=== PATIENT | female | born 1990 | race Caucasian/White ===

== ENCOUNTER → 2016-05-18 | Outpatient (CLI) | payer BC, OTHER ==
--- NOTE | 2016-05-19 07:49 | US ---
EXAMINATION TYPE: US transvaginal DATE OF EXAM: 05/18/2016 4:27 PM COMPARISON: 10/19/2015 CLINICAL HISTORY: R10.2 Pelvic and perineal pain. TECHNIQUE: Transvaginal (TV) Date of LMP: 04/25/15 EXAM MEASUREMENTS: Uterus: 8.7 x 4.2 x 5.4cm Endometrial Stripe: 1.5 cm Right Ovary: Extensive peristalsing bowel seen in right adnexa, unable to visualize ovary. Left Ovary: Extensive peristalsing bowel seen in right adnexa, unable to visualize ovary. 1. Uterus: Anteverted 2. Endometrium: thickened 3. Right Ovary: Extensive peristalsing bowel seen in right adnexa, unable to visualize ovary. 4. Left Ovary: Extensive peristalsing bowel seen in right adnexa, unable to visualize ovary. 5. Bilateral Adnexa: see above 6. Posterior cul-de-sac: small amount of ff IMPRESSION: Limited visualization of the ovaries and adnexal structures. Small amount of free fluid i dentified.
== END | disposition home or self-care (01) ==
LOC: RADUSMAIN 15:52
PROVIDERS: ATTEND Nurse Practitioner Family
DX: R10.2 Pelvic and perineal pain (principal)
CPT/HCPCS: 76830

== ENCOUNTER → 2017-01-01 | Outpatient (CLI) | payer BC, OTHER | END | disposition home or self-care (01) | LOC: LABWHC1 12:11 | PROVIDERS: ATTEND Obstetrics & Gynecology | DX: N97.0 Female infertility associated with anovulation (principal) | CPT/HCPCS: 36415; 84144 ==

== ENCOUNTER → 2017-01-22 | Outpatient (CLI) | payer BC, OTHER | END | disposition home or self-care (01) | LOC: LABWHC1 12:11 | PROVIDERS: ATTEND Obstetrics & Gynecology | DX: Z34.90 Encounter for supervision of normal pregnancy, unspecified, unspecified trimester (principal) | CPT/HCPCS: 36415; 84702 ==

== ENCOUNTER → 2017-03-15 | Outpatient (CLI) | payer BC, OTHER | END | disposition home or self-care (01) | LOC: LABWHC1 12:15 | PROVIDERS: ATTEND Obstetrics & Gynecology | DX: O02.1 Missed abortion (principal) | CPT/HCPCS: 36415; 84702 ==

== ENCOUNTER → 2017-05-14 | Outpatient (CLI) | payer BC, OTHER ==
[2017-05-14 12:57] LABS: T4, Free (Free Thyroxine) 1.07 ng/dL (0.78-2.19)
[2017-05-14 18:56] LABS: Progesterone 0.5 ng/mL
[2017-05-14 20:48] LABS: Cardiolipin Ab IgG Interp NEGATIVE (NEGATIVE); Cardiolipin Ab IgM Interp NEGATIVE (NEGATIVE); Cardiolipin IgA Antibody <0.5 U/mL; Cardiolipin IgM Antibody 1.8 U/mL
[2017-05-14 21:15] LABS: Hemoglobin A1C 4.7 % (4.0-6.0)
== END | disposition home or self-care (01) ==
LOC: LABWHC1 12:09
PROVIDERS: ATTEND Obstetrics & Gynecology
DX: E03.9 Hypothyroidism, unspecified (principal); N96 Recurrent pregnancy loss
CPT/HCPCS: 36415; 81241; 83036; 84144; 84439; 84443; 84481; 86038; 86147

== ENCOUNTER → 2017-06-07 | Outpatient (CLI) | payer BC, OTHER ==
[2017-06-08 14:23] LABS: APTT 33 Sec(s) (<43); Dilute Russell Viper Venom 41 Sec(s) (<44)
== END | disposition home or self-care (01) ==
LOC: LABWHC1 12:11
PROVIDERS: ATTEND Obstetrics & Gynecology
DX: N96 Recurrent pregnancy loss (principal)
CPT/HCPCS: 36415; 85613; 85730; 86146

== ENCOUNTER → 2017-06-18 | Outpatient (CLI) | payer BC, OTHER | LOC: LABWHC1 12:10 | PROVIDERS: ATTEND Obstetrics & Gynecology | DX: N97.0 Female infertility associated with anovulation (principal) | CPT/HCPCS: 36415; 84144 ==

== ENCOUNTER → 2017-06-19 | Outpatient (CLI) | payer BC, OTHER ==
--- NOTE | 2017-06-19 13:11 | US ---
EXAMINATION TYPE: US venous doppler duplex UE RT DATE OF EXAM: 06/19/2017 COMPARISON: NONE CLINICAL HISTORY: RUE I82.601 Acute embolism/thrombosis. Right arm swelling SIDE PERFORMED: Right Right Arm: Negative for DVT Grayscale, color doppler, spectral doppler imaging performed of the deep veins of the right upper ext remity. There is normal flow, compressibility and vascular waveforms. IMPRESSION: No sonographic evidence of deep venous thrombosis within the right upper extremity.
== END | disposition home or self-care (01) ==
LOC: RADUSWWP 12:18
PROVIDERS: ATTEND Family Medicine
DX: I82.601 Acute embolism and thrombosis of unspecified veins of right upper extremity (principal)

== ENCOUNTER → 2017-12-24 | Outpatient (CLI) | payer BC, OTHER | END | disposition home or self-care (01) | LOC: LABWHC1 12:08 | PROVIDERS: ATTEND Obstetrics & Gynecology | DX: N97.0 Female infertility associated with anovulation (principal) | CPT/HCPCS: 36415; 84144; 84702 ==

== ENCOUNTER → 2018-01-14 | Outpatient (CLI) | payer BC, OTHER ==
[2018-01-14 18:47] LABS: T4, Free (Free Thyroxine) 1.1 ng/dL (0.80-1.80)
== END | disposition home or self-care (01) ==
LOC: LABWHC1 12:18
PROVIDERS: ATTEND Family Medicine
DX: E03.9 Hypothyroidism, unspecified (principal)
CPT/HCPCS: 36415; 84439; 84443; 84481

== ENCOUNTER → 2018-01-24 | Outpatient (CLI) | payer BC, OTHER | END | disposition home or self-care (01) | LOC: LABWHC1 12:06 | PROVIDERS: ATTEND Obstetrics & Gynecology | DX: N97.0 Female infertility associated with anovulation (principal) | CPT/HCPCS: 36415; 84144; 84702 ==

== ENCOUNTER → 2018-02-22 | Outpatient (CLI) | payer BC, OTHER | END | disposition home or self-care (01) | LOC: LAB 12:15 | PROVIDERS: ATTEND Obstetrics & Gynecology | DX: N97.0 Female infertility associated with anovulation (principal) | CPT/HCPCS: 84144 ==

== ENCOUNTER → 2018-03-27 | Outpatient (CLI) | payer BC, OTHER ==
[2018-03-27 18:51] LABS: Progesterone 16.8 ng/mL
[2018-03-27 18:56] LABS: Vitamin D 25 Hydroxy 41.2 ng/mL (30.0-100.0)
== END | disposition home or self-care (01) ==
LOC: LABWHC1 12:21
PROVIDERS: ATTEND Obstetrics & Gynecology
DX: Z01.812 Encounter for preprocedural laboratory examination (principal); N97.0 Female infertility associated with anovulation
CPT/HCPCS: 36415; 82306; 82397; 83036; 84144; 84146; 84443; 86762; 86787; 86850; 86900; 86901

== ENCOUNTER → 2018-05-21 | Outpatient (CLI) | payer BC, OTHER ==
--- NOTE | 2018-05-21 12:58 | US ---
EXAMINATION TYPE: Transabdominal DATE OF EXAM: 05/21/2018 10:52 AM COMPARISON: NONE CLINICAL HISTORY: O09.299 Supervision of with other poor r. Poor obstetric history. G 5 P 1 . EXAM PERFORMED: Transvaginal (TV) and Transabdominal (TA) EXAM MEASUREMENTS: GESTATIONAL AGE / DATING Physician Established: Not yet established. (Dates by LMP: 04/01/2018 (7 weeks/1 days) EDC: 01/06/2019 Dates by First Scan: This is first scan. Dates by Current Scan for: (6 weeks/5 days) EDC: 01/09/2019 MATERNAL ANATOMY Uterus: 12.1 x 8.5 x 5.4 cm Right Ovary: 4.0 x 1.8 x 1.5 cm Left Ovary: 3.1 x 2.1 x 2.4 cm Post CDS / Adnexa: Small amount of free fluid seen in CDS. Presence of free fluid: Yes CDS Presence of corpus luteal cyst: Possible corpus luteal: Anechoic area seen left ovary measurin.5 x 1.6 x 1.6 cm Presence of subchorionic bleed: Hypoechoic area seen measurin.1 x 1.1 x 0.8 cm GESTATION / SURVEY CRL: 0.83 (6 weeks/5 days) Yolk Sac (normal less than 6mm): 2.4 Heart Rate: 105 bpm Rhythm: Normal IUP: Viable IUP Date of LMP: 04/01/2018 Single viable IUP measuring 6 weeks/5 days, EDC: 01/09/2019; Heart rate 105 bpm; Presence of subchori onic bleed: Hypoechoic area seen measurin.1 x 1.1 x 0.8 cm inferior to the gestational sac. IMPRESSION: 1. Single intrauterine gestation estimated at 6 weeks 5 days gestation based on crown-rump length. 2. Cardiac activity measures 105 bpm. 3. Subchorionic hemorrhage adjacent to the gestational sac.
== END ==
LOC: RADUSWWP 10:06
PROVIDERS: ATTEND Obstetrics & Gynecology
DX: O20.8 Other hemorrhage in early pregnancy (principal); Z3A.01 Less than 8 weeks gestation of pregnancy
CPT/HCPCS: 76801; 76817

== ENCOUNTER → 2018-05-22 | Outpatient (CLI) | payer BC, OTHER ==
[2018-05-22 12:24] LABS: HGB 13.3 gm/dL (11.4-16.0); MCH 28.8 pg (25.0-35.0); MCHC 33.2 g/dL (31.0-37.0); MCV 86.7 fL (80.0-100.0); Platelet Count 351 k/uL (150-450); RBC 4.61 m/uL (3.80-5.40); RDW 12.9 % (11.5-15.5); WBC 10.3 k/uL (3.8-10.6)
== END | disposition home or self-care (01) ==
LOC: LABWHC1 12:06
PROVIDERS: ATTEND Obstetrics & Gynecology
DX: Z34.81 Encounter for supervision of other normal pregnancy, first trimester (principal)
CPT/HCPCS: 36415; 82565; 82947; 85027; 86762; 86780; 86850; 86900; 86901; 87340

== ENCOUNTER → 2018-08-21 | Outpatient (CLI) | payer BC, OTHER ==
[2018-08-21 18:18] LABS: T4, Free (Free Thyroxine) 1.2 ng/dL (0.80-1.80)
== END | disposition home or self-care (01) ==
LOC: LABWHC1 14:41
PROVIDERS: ATTEND Obstetrics & Gynecology
DX: E03.8 Other specified hypothyroidism (principal)
CPT/HCPCS: 36415; 84439; 84443; 84479

== ENCOUNTER → 2018-10-05 | Outpatient (CLI) | payer BC, OTHER ==
[2018-10-05 10:36] LABS: HCT 34.3 % (34.0-46.0); HGB 11.7 gm/dL (11.4-16.0); MCH 29.2 pg (25.0-35.0); MCHC 34.2 g/dL (31.0-37.0); MCV 85.5 fL (80.0-100.0); Mean Platelet Volume 6.5; Platelet Count 264 k/uL (150-450); RBC 4.01 m/uL (3.80-5.40); RDW 14.4 % (11.5-15.5); WBC 10.4 k/uL (3.8-10.6)
== END | disposition home or self-care (01) ==
LOC: LABWHC1 08:44
PROVIDERS: ATTEND Obstetrics & Gynecology
DX: E03.9 Hypothyroidism, unspecified (principal)
CPT/HCPCS: 36415; 82950; 84439; 84443; 84479; 85027

== ENCOUNTER → 2018-10-15 | Outpatient (CLI) | payer BC, OTHER ==
[2018-10-15 11:23] LABS: Glucose 3 Hour, Gest 134 mg/dL
== END | disposition home or self-care (01) ==
LOC: LABWHC1 07:01
PROVIDERS: ATTEND Obstetrics & Gynecology
DX: O99.810 Abnormal glucose complicating pregnancy (principal); Z3A.00 Weeks of gestation of pregnancy not specified
CPT/HCPCS: 36415; 82951; 82952

== ENCOUNTER 2018-11-29 11:46 | Outpatient (CLI) | payer BC, OTHER ==
[2018-11-29 12:17] VITALS: BP 122/76; PULSE 86; RESP 16; TEMP 97
--- NOTE | 2018-11-29 13:08 | P.MSEPDOC ---
Presenting Problems - Arrival Data Date of Arrival on Unit: 11/29/18 Time of Arrival on Unit: 11:46 Mode of Transport: Ambulatory - Complaint OB-Reason for Admission/Chief Complaint: NST Comment: Weekly NST; arrived with paper script; pt to be d/c after reactive NST obtained. Medical History - Information : 5 Para: 1 Term: 1 : 0 Abortions: Spontaneous or Elective: 3 Number of Living Children: 1 - Gestational Age Gestational Age by ADOLFO (wks/days): 34 Weeks and 4 Days Review of Systems - Review of Systems Constitutional: No problems Breast: No problems ENT: No problems Cardiovascular: No problems Respiratory: No problems Gastrointestinal: No problems Genitourinary: No problems Musculoskeletal: No problems Neurological: No problems Skin: No problems Vital Signs - Temperature Temperature: 97 F Temperature Source: Temporal Artery Scan - Pulse Right Sitting Brachial Pulse Rate: 86 Pulse Assessment Method: Automatic Cuff - Respirations Respiratory Rate: 16 Oxygen Delivery Method: Room Air O2 Sat by Pulse Oximetry: 98 - Blood Pressure Right Arm Sitting Blood Pressure: 122/76 Blood Pressure Mean: 91 Blood Pressure Source: Automatic Cuff Medical Screen Scoring (Pre) - Cervical Exam Dilation: Exam Deferred Effacement: Exam Deferred Membranes: Intact - Uterine Contractions Frequency: N/A Duration: N/A Intensity: N/A - Maternal Vital Signs Maternal Temperature: N/A Maternal Blood Pressure: N/A Signs of Preeclampsia: N/A Maternal Respirations: N/A - Maternal Trauma Maternal Trauma: N/A - Assessment - Baby A Baseline FHR: 130 Heart Rate - NICHD Category: Category I (Normal) = 0 NST: Reactive Position: N/A Station: N/A - Total Score - Baby A Total Score - Baby A: 0 - Total Score - Baby B Total Score - Baby B: 0 - Total Score - Baby C Total Score - Baby C: 0 - Level of Risk - Baby A Level of Risk - Baby A: Low (0-5) - Level of Risk - Baby B Level of Risk - Baby B: Low (0-5) - Level of Risk - Baby C Level of Risk - Baby C: Low (0-5) Physician Notification (Pre) - Physician Notified Physician Notified Date: 11/29/18 Physician Notified Time: 12:15 - Notification Comment Comment: Paper order states pt may be d/c after reactive NST obtained. Pt has appt Wed 12/04 c\Dr. Yañez and NST at [facility]. Disposition - Disposition OB Disposition: Discharge to home, Written follow up instructions reviewed Discharge Date: 11/29/18 Discharge Time: 12:15 I agree with the RN Medical Screening Exam: Yes Risk & Benefit of care provided described in d/c instruction: Yes Diagnosis: GESTATIONAL DIABETES IN THE PUERPERIUM, DIET CONTROLLED
== END 2018-11-29 12:15 | disposition home or self-care (01) ==
LOC: FBPOP 11:46
PROVIDERS: ATTEND Obstetrics & Gynecology
DX: O24.430 Gestational diabetes mellitus in the puerperium, diet controlled (principal); Z3A.34 34 weeks gestation of pregnancy
CPT/HCPCS: 59025

== ENCOUNTER 2018-12-19 12:15 | Outpatient (CLI) | payer BC, OTHER | END 2018-12-19 12:59 | disposition home or self-care (01) | LOC: FBPOP 12:15 | PROVIDERS: ATTEND Obstetrics & Gynecology | DX: O24.419 Gestational diabetes mellitus in pregnancy, unspecified control (principal) | CPT/HCPCS: 59025 ==

== ENCOUNTER 2018-12-28 09:07 | Outpatient (CLI) | payer BC, OTHER | END 2018-12-28 10:00 | disposition home or self-care (01) | LOC: FBPOP 09:07 | PROVIDERS: ATTEND Obstetrics & Gynecology | DX: O24.419 Gestational diabetes mellitus in pregnancy, unspecified control (principal) | CPT/HCPCS: 59025 ==

== ENCOUNTER 2018-12-31 05:40 | Inpatient (IN) | payer BC, OTHER ==
[2018-12-30 08:33] VITALS: BMI 34.4
--- NOTE | 2018-12-30 13:17 | P.HPOB ---
History of Present Illness H&P Date: 12/30/18 Chief Complaint: Repeat section, gestational diabetes This patient is a pleasant 28 year old EDC 01/06/2019 estimated gestational age 39 and 1/7 weeks who is presenting for repeat section. has been complicated by insulin dependent gestational diabetes (followed by [facility]), marginal cord insertion, hypothyroidism, and Factor V (heterozygous). She has been on 81mg ASA but [facility] did not recommend Lovenox until . Previous C/S and desires repeat Review of Systems Genitourinary: Reports Menstruation: Reports amenorrhea Past Medical History Past Medical History: Thyroid Disorder Additional Past Medical History / Comment(s): Gestational diabetes, Factor V Leiden (heterozygous), hypothyroidism History of Any Multi-Drug Resistant Organisms: None Reported Past Surgical History: Section Past Anesthesia/Blood Transfusion Reactions: No Reported Reaction Past Psychological History: No Psychological Hx Reported Smoking Status: Never smoker Past Alcohol Use History: None Reported Past Drug Use History: None Reported - Past Family History Mother Family Medical History: No Reported History Medications and Allergies Home Medications Medication Instructions Recorded Confirmed Type Pnv,Calcium 72/Iron/Folic Acid 1 tab PO HS 09/29/14 12/30/18 History [ Plus Tablet] Aspirin [Adult Low Dose Aspirin EC] 81 mg PO DAILY 11/29/18 12/30/18 History Folic Acid 1 mg PO DAILY 11/29/18 12/30/18 History Insulin Aspart [NovoLOG] 22 units SQ HS 11/29/18 12/30/18 History Levothyroxine Sodium 125 mcg PO DAILY 11/29/18 12/30/18 History metFORMIN HCL 500 mg PO HS 11/29/18 12/30/18 History Allergies Allergy/AdvReac Type Severity Reaction Status Date / Time amoxicillin Allergy Rash/Hives Verified 12/30/18 08:25 Penicillins Allergy Rash/Hives Verified 12/30/18 08:25 Exam Intake and Output 12/29/18 12/30/18 12/30/18 22:59 06:59 14:59 Other: Weight 102.965 kg - OBG Physical Exam Abdomen: bowel sounds normal, no diffuse tenderness, no bruit present, no guarding noted, no hepatomegaly, no splenomegaly, no mass Vulva: both: normal Vagina: normal moisture, no discharge Cervix: no lesion (Closed), no discharge Uterus: enlarged (Fundal height 38 cm) Results Labs: A positive, Rubella Immune, RPR-HepB negative, Abnormal 3hr GTT, Ultrasounds show normal growth, marginal cord insertion. Assessment and Plan Assessment: This is a pleasant 28 yr old female presenting for repeat C/S secondary to previous. Gestational diabetes and Leiden V. Plan is repeat low transverse ce sarean section. Skye and I have discusse this surgery and risks: infection, bleeding, possible injury to bowel/bladder/vessels and/or other organs. She understands that she is at increased risk of DVT/PE. All of the patients questions have been answered and a written consent obtained. (1) 39 weeks gestation of Status: Acute Code(s): Z3A.39 - 39 WEEKS GESTATION OF SNOMED Code(s): 11209259 (2) Gestational diabetes Status: Acute Code(s): O24.419 - GESTATIONAL DIABETES MELLITUS IN , UNSP CONTROL SNOMED Code(s): 26027635 (3) Previous delivery affecting Status: Acute Code(s): O34.219 - MATERNAL CARE FOR UNSP TYPE SCAR FROM PREVIOUS DEL SNOMED Code(s): 724048038 (4) Factor 5 Leiden mutation, heterozygous Status: Acute Code(s): D68.51 - ACTIVATED PROTEIN C RESISTANCE SNOMED Code(s): 462712628
[2018-12-31] MEDS ORDERED: LACTATED RINGERS 1,000 ML IV SCH (05:57)
[2018-12-31] MEDS ORDERED: LACTATED RINGERS 1,000 ML IV ONE (05:57)
[2018-12-31] MEDS ORDERED: CITRIC ACID-SODIUM CITRATE 15 ML CUP PO ONE (05:57)
[2018-12-31 06:33] LABS: Basophils # (A) 0.1 k/uL (0-0.2); Basophils % (A) 1 %; Eosinophils # (A) 0.2 k/uL (0-0.7); Eosinophils % (A) 2 %; HCT 37.3 % (34.0-46.0); HGB 12.6 gm/dL (11.4-16.0); Lymphocytes # (A) 2.1 k/uL (1.0-4.8); Lymphocytes % (A) 20 %; MCH 28.3 pg (25.0-35.0); MCHC 33.7 g/dL (31.0-37.0); MCV 84.1 fL (80.0-100.0); Monocytes # (A) 0.4 k/uL (0-1.0); Monocytes % (A) 4 %; Neutrophils # (A) 7.7 k/uL (1.3-7.7); Neutrophils % (A) 72 %; Platelet Count 253 k/uL (150-450); RBC 4.44 m/uL (3.80-5.40); RDW 14.6 % (11.5-15.5); WBC 10.6 k/uL (3.8-10.6)
[2018-12-31 06:48] LABS: INR 0.9 (<1.2); Prothrombin Time 9.4 sec (9.0-12.0)
[2018-12-31] MEDS ORDERED: ONDANSETRON 4 MG/2 ML VIAL ONE (07:46)
[2018-12-31] MEDS ORDERED: NALBUPHINE 10 MG/ML (1 ML AMP) ONE (07:46)
[2018-12-31] MEDS ORDERED: KETOROLAC 30 MG/ML 1 ML VIAL ONE (07:46)
[2018-12-31] MEDS ORDERED: MORPHINE SULFATE (PF) 0.3 MG/0.3 ML SYR ONE (07:46)
[2018-12-31] MEDS ORDERED: OXYTOCIN 10 UNIT/ML 1 ML VIAL ONE (07:46)
[2018-12-31] MEDS ORDERED: LANOLIN CREAM 5 GM TUBE TOPICAL PRN (08:28)
[2018-12-31] MEDS ORDERED: diphenhydrAMINE 25 MG CAP PO PRN (08:28)
[2018-12-31] MEDS ORDERED: METOCLOPRAMIDE 5 MG/ML 2 ML VIAL IVP PRN (08:28)
[2018-12-31] MEDS ORDERED: ZOLPIDEM 5 MG TAB PO PRN (08:28)
[2018-12-31] MEDS ORDERED: OXYTOCIN 20 UNITS/1000 ML NS 1,000 ML IV SCH (08:28)
[2018-12-31] MEDS ORDERED: ACETAMINOPHEN TAB 325 MG TAB PO PRN (08:28)
[2018-12-31] MEDS ORDERED: ONDANSETRON 4 MG/2 ML VIAL IVP PRN (08:28)
[2018-12-31] MEDS ORDERED: NALOXONE 0.4 MG/ML 1 ML VIAL IV PRN (08:28)
--- NOTE | 2018-12-31 08:38 | P.OP ---
Date of Procedure: 12/31/18 Preoperative Diagnosis: #1: 39 and one sevenths week intrauterine . #2: Previous section desires repeat. #3: Insulin-dependent gestational diabetes. Postoperative Diagnosis: Same Procedure(s) Performed: Repeat low transverse section Anesthesia: spinal Surgeon: Brian Yañez Supervisor Type Bar And Segment #1: Rebeca Herr Estimated Blood Loss (ml): 800 Pathology: other (Placenta) Condition: stable Disposition: floor Indications for Procedure: Please see dictated H&P for intimate details of this patient's admission. Brief summary this is a pleasant 28-year-old 5 para 1 female 39-0/7 weeks gestation is admitted to labor and delivery for repeat section. Patient and I have discussed the surgery and she understands the risks of infection, bleeding, possible injury bowel, bladder, vessels, and other organs. She also understands risk of DVT and pulmonary embolism. All the patient's questions are answered and a written consent is obtained. Operative Findings: This is a vigorous viable female Apgars 8 and 9 delivery time is 0804 hrs. There was particulate meconium fluid but otherwise normal findings. Description of Procedure: This patient has a Jimenez catheter placed to straight drain. She is subsequently taken to the operating room where she sat up and spinal anesthetic is administered without incident. With an adequate level of anesthesia, she has abdominal prep and drape. Scalpels taken the previous Pfannenstiel incision is incised. A second scalpel is taken down the fascia the fascia scored with a knife. Fascial incision extended bilaterally using the Bello scissors. Rectus muscles are the peritoneum identified and entered sharply. Peritoneal incision extended superior and inferior without difficulty. Bladder blade is then placed. Bladder peritoneum was taken sharply off the lower uterine segment. Scalpels then taken low transverse uterine incision is made. Using a hemostat I gently into the uterine cavity and there is loss of what appears initially to be clear fluid but had particulate meconium intimate. This incision is extended bluntly. Infant's head is then guided through the incision with fundal pressure and delivered. Mouth and nares are bulb suctioned. There is no evidence of nuchal cord with more fundal pressure we have delivery the anterior posterior shoulder and rest this 's body. This is a vigorous viable female Apgars are 8 and 9 delivery time was 0804 hrs. After delivery of the infant the umbilical cords doubly clamped and cut it appears to be trivascular. Placenta is then manually extracted intact. Uterine cavity is explored and all tissue was removed. The uterus is externalized and uterine incision demarcated with Sullivan clamps. Uterine incision closed in 0 Vicryl running locked fashion 2 layers. Excellent hemostasis is noted. Bladder peritoneum was reapproximated using a 3-0 Vicryl. Excess fluid is removed from the abdomen and pelvis. The uterus, tubes, ovaries all appear normal. Uterus placed back into the abdomen. The parietal peritoneum was then identified and closed using 0 Vicryl running fashion. Rectus muscles reapproximated using 0 Vicryl interrupted fashion. The fascia is then closed using 0 PDS. Fascial incision is intact and hemostatic. Subcutaneous tissues and closed using a 3-0 Vicryl. Skin is and closed using cathleen. All counts are correct 3. There are no complications. and mother are taken to the birthing suite in satisfactory condition.
[2018-12-31] MEDS: LACTATED RINGERS 1,000 ML IV SCH ×2 (10:19→18:14)
[2018-12-31] MEDS: diphenhydrAMINE 50 MG/ML 1 ML VIAL IVP PRN ×3 (12:11→23:46)
[2018-12-31] MEDS: SENNOSIDES-DOCUSATE SODIUM 1 EACH TAB PO SCH ×2 (12:13→20:51)
[2018-12-31 12:34] LABS: Hemoglobin A1C 4.9 % (4.0-6.0)
[2018-12-31] MEDS: KETOROLAC 30 MG/ML 1 ML VIAL IVP PRN ×2 (14:23→20:50)
[2019-01-01] MEDS: HYDROcodone/APAP 5-325MG 1 EACH TAB PO PRN ×5 (01:27→22:48)
[2019-01-01] MEDS: SIMETHICONE 80 MG CHEWABLE PO PRN ×3 (01:32→22:49)
[2019-01-01] MEDS: KETOROLAC 30 MG/ML 1 ML VIAL IVP PRN ×2 (03:42→11:05)
--- NOTE | 2019-01-01 06:06 | P.PNOBGPC ---
Subjective - Subjective Patient reports: Reports appetite normal, Reports voiding normally, Reports pain well controlled, Reports ambulating normally : doing well Objective - Vital Signs Latest vital signs: Vital Signs Temp Pulse Resp BP Pulse Ox 01/01/19 00:00 98.4 F 90 15 118/72 98 12/31/18 20:00 98.4 F 94 15 102/71 95 12/31/18 16:00 98.3 F 79 18 114/66 94 L 12/31/18 12:00 98.6 F 76 18 110/62 95 12/31/18 10:31 71 18 109/70 100 12/31/18 10:01 98.3 F 74 18 108/76 97 12/31/18 09:31 98.7 F 66 18 126/74 97 12/31/18 09:16 73 18 111/67 97 12/31/18 09:01 75 18 108/63 98 12/31/18 08:46 73 18 136/70 98 12/31/18 08:31 97.6 F 75 18 121/72 98 Intake and Output 12/31/18 12/31/18 01/01/19 14:59 22:59 06:59 Intake Total 1850 Output Total 100 1750 700 Balance -100 100 -700 Intake: Intake, IV Titration 1850 Amount Lactated Ringers 1,000 ml 1800 @ 125 mls/hr IV .Q8H [facility] Rx#:[id number] ceFAZolin 2 gm In Sodium 50 Chloride 0.9% 50 ml @ 100 mls/hr IVPB ONCE ONE Rx# :[id number] Output: Urine 100 1750 700 Uretheral (Jimenez) 400 Other: Voiding Method Indwelling Catheter # Voids 1 1 1 - Exam Lungs: bilateral: normal Chest: Normal S1, Normal S2 Extremities: Present: normal Abdomen: Present: normal appearance, soft. Absent: distention, tenderness Incision: Present: normal, dry, intact Uterus: Present: normal, firm Assessment and Plan Assessment: Postoperative day #1. Patient is resting this morning without new complaints. She did have some increased pain last night but this appears to have resolved. Vital signs are stable she is afebrile. Uterus is firm nontender and she is having normal lochia. Her incision is intact and dry. Maternal medicine has recommended that she started on Lovenox , therefore she'll started on Lovenox's lungs her CBC is normal this morning. Plan is to advance her diet, allow the patient to shower, check a CBC, and continue routine care. (1) 39 weeks gestation of Current Visit: No Status: Acute Code(s): Z3A.39 - 39 WEEKS GESTATION OF SNOMED Code(s): 50808291 (2) Gestational diabetes Current Visit: No Status: Acute Code(s): O24.419 - GESTATIONAL DIABETES MELLITUS IN , UNSP CONTROL SNOMED Code(s): 57903116 (3) Previous delivery affecting Current Visit: No Status: Acute Code(s): O34.219 - MATERNAL CARE FOR UNSP TYPE SCAR FROM PREVIOUS DEL SNOMED Code(s): 262739392 (4) Factor 5 Leiden mutation, heterozygous Current Visit: No Status: Acute Code(s): D68.51 - ACTIVATED PROTEIN C RESISTANCE SNOMED Code(s): 248273099
[2019-01-01] MEDS: LACTATED RINGERS 1,000 ML IV SCH ×3 (06:34→16:53)
[2019-01-01 07:28] LABS: Basophils % (A) 0 %; Eosinophils # (A) 0.1 k/uL (0-0.7); Eosinophils % (A) 1 %; HCT 34.9 % (34.0-46.0); HGB 11.7 gm/dL (11.4-16.0); Lymphocytes # (A) 1.4 k/uL (1.0-4.8); Lymphocytes % (A) 12 %; MCH 28.3 pg (25.0-35.0); MCHC 33.4 g/dL (31.0-37.0); MCV 84.7 fL (80.0-100.0); Monocytes # (A) 0.5 k/uL (0-1.0); Monocytes % (A) 4 %; Neutrophils # (A) 9.6 k/uL (1.3-7.7); Neutrophils % (A) 82 %; Platelet Count 248 k/uL (150-450); RBC 4.12 m/uL (3.80-5.40); RDW 14.7 % (11.5-15.5); WBC 11.7 k/uL (3.8-10.6)
--- NOTE | 2019-01-01 10:37 | P.PN ---
Progress Note - Text 01/01 652am 28-year-old female status post with spinal. Patient also had Duramorph injection for spinal for postop pain control, patient seen this morning with a VAS of 2 lap by. Patient complains of pruritus which is resolved. I was
[2019-01-01] MEDS: SENNOSIDES-DOCUSATE SODIUM 1 EACH TAB PO SCH ×2 (11:07→20:30)
[2019-01-01] MEDS: ENOXAPARIN 40 MG/0.4 ML SYRINGE SQ SCH (11:11)
[2019-01-01] MEDS: IBUPROFEN 600 MG TAB PO PRN ×2 (16:20→20:30)
[2019-01-02] MEDS: IBUPROFEN 600 MG TAB PO PRN ×2 (03:56→10:17)
[2019-01-02] MEDS: SIMETHICONE 80 MG CHEWABLE PO PRN (03:56)
--- NOTE | 2019-01-02 08:07 | P.PNOBGPC ---
Subjective - Subjective Patient reports: Reports appetite normal, Reports voiding normally, Reports pain well controlled, Reports ambulating normally : doing well Objective - Vital Signs Latest vital signs: Vital Signs Temp Pulse Resp BP Pulse Ox 01/02/19 00:00 97.7 F 85 18 118/70 01/01/19 16:00 98.0 F 84 16 120/72 99 Intake and Output 01/01/19 01/02/19 01/02/19 22:59 06:59 14:59 Other: Voiding Method Indwelling Catheter - Exam Lungs: bilateral: normal Chest: Normal S1, Normal S2 Extremities: Present: normal Abdomen: Present: normal appearance, soft. Absent: distention, tenderness Incision: Present: normal, dry, intact Uterus: Present: normal, firm Assessment and Plan Assessment: Postoperative day #2. Patient is resting without complaints and wishes to go home. Vital signs are stable and she is afebrile. Uterus is firm nontender and her incision is intact and dry. I did start her on Lovenox yesterday per maternal- medicine recommendations. Plan today is to continue routine postoperative care discharge home follow up with me in 1 week (1) 39 weeks gestation of Current Visit: No Status: Acute Code(s): Z3A.39 - 39 WEEKS GESTATION OF SNOMED Code(s): 83664292 (2) Gestational diabetes Current Visit: No Status: Acute Code(s): O24.419 - GESTATIONAL DIABETES MELLITUS IN , UNSP CONTROL SNOMED Code(s): 37781524 (3) Previous delivery affecting Current Visit: No Status: Acute Code(s): O34.219 - MATERNAL CARE FOR UNSP TYPE SCAR FROM PREVIOUS DEL SNOMED Code(s): 706870234 (4) Factor 5 Leiden mutation, heterozygous Current Visit: No Status: Acute Code(s): D68.51 - ACTIVATED PROTEIN C RESISTANCE SNOMED Code(s): 779187603
[2019-01-02] MEDS: SENNOSIDES-DOCUSATE SODIUM 1 EACH TAB PO SCH (08:10)
[2019-01-02] MEDS: HYDROcodone/APAP 5-325MG 1 EACH TAB PO PRN (08:10)
[2019-01-02] MEDS: ENOXAPARIN 40 MG/0.4 ML SYRINGE SQ SCH (08:12)
--- NOTE | 2019-01-02 08:17 | P.DS ---
Providers Date of admission: 12/31/18 05:40 Expected date of discharge: 01/02/19 Attending physician: Brian Yañez Primary care physician: Stated None - Discharge Diagnosis(es) (1) 39 weeks gestation of Current Visit: No Status: Acute (2) Gestational diabetes Current Visit: No Status: Acute (3) Previous delivery affecting Current Visit: No Status: Acute (4) Factor 5 Leiden mutation, heterozygous Current Visit: No Status: Acute Hospital Course: Please see dictated H&P for intimate details of this patient's admission. In brief summary is a pleasant 28-year-old 5 para 1 female 39 weeks gestation admitted for elective repeat section. Patient is admitted she is to repeat section for viable female infant. Please see dictated delivery note. Postoperative patient does well and I did start her on Lovenox per maternal- medicine recommendations. On postoperative day #2 patient's felt to be stable for discharge home follow up with me in 1 week. Call should any fevers, chills, excessive vaginal bleeding, and/or abdominal pain. Procedures: Repeat low transverse section Patient Condition at Discharge: Good Plan - Discharge Summary Discharge Rx Participant: Yes New Discharge Prescriptions: New Enoxaparin [Lovenox] 40 mg SQ DAILY #30 syringe Ibuprofen [Motrin] 600 mg PO Q6HR PRN #40 tab PRN Reason: Mild Pain Or Fever >= 100.5 HYDROcodone/APAP 5-325MG [[place] 5-325] 1 each PO Q4HR PRN #18 tab PRN Reason: Moderate Pain No Action Pnv,Calcium 72/Iron/Folic Acid [ Plus Tablet] 1 tab PO HS Folic Acid 1 mg PO DAILY Aspirin [Adult Low Dose Aspirin EC] 81 mg PO DAILY Insulin Aspart [NovoLOG] 22 units SQ HS metFORMIN HCL 500 mg PO HS Levothyroxine Sodium 125 mcg PO DAILY Discharge Medication List Pnv,Calcium 72/Iron/Folic Acid [ Plus Tablet] 1 tab PO HS 09/29/14 [History] Aspirin [Adult Low Dose Aspirin EC] 81 mg PO DAILY 11/29/18 [History] Folic Acid 1 mg PO DAILY 11/29/18 [History] Insulin Aspart [NovoLOG] 22 units SQ HS 11/29/18 [History] Levothyroxine Sodium 125 mcg PO DAILY 11/29/18 [History] metFORMIN HCL 500 mg PO HS 11/29/18 [History] Enoxaparin [Lovenox] 40 mg SQ DAILY #30 syringe 01/01/19 [Rx] HYDROcodone/APAP 5-325MG [[place] 5-325] 1 each PO Q4HR PRN #18 tab 01/01/19 [Rx] Ibuprofen [Motrin] 600 mg PO Q6HR PRN #40 tab 01/01/19 [Rx] Follow up Appointment(s)/Referral(s): Brian Yañez MD [STAFF PHYSICIAN] - 01/10/19 1:30 pm (Please see me for a visit on February 12 as well at 9:15 AM.) Patient Instructions/Handouts: (DC) Activity/Diet/Wound Care/Special Instructions: No intercourse or anything per vagina for 6 weeks. No strenuous activity or heavy lifting. Please call if any fever, chills, excessive vaginal bleeding, and/or abdominal pain. Discharge Disposition: HOME SELF-CARE
[2019-01-02 09:04] VITALS: BP 115/68; PULSE 79; RESP 16; TEMP 98.2
== END 2019-01-02 10:39 | disposition home or self-care (01) | DRG 787 ==
LOC: 4FBP 05:40
PROVIDERS: ADMIT Obstetrics & Gynecology; ATTEND Obstetrics & Gynecology
PROC: 10D00Z1 Extraction of Products of Conception, Low, Open Approach (ICD-10-PCS; principal; 2018-12-31 08:00)
DX: O24.424 Gestational diabetes mellitus in childbirth, insulin controlled (principal); O99.12 Other diseases of the blood and blood-forming organs and certain disorders involving the immune mechanism complicating childbirth; D68.51 Activated protein C resistance; O34.211 Maternal care for low transverse scar from previous cesarean delivery; O43.193 Other malformation of placenta, third trimester; O77.0 Labor and delivery complicated by meconium in amniotic fluid; O99.284 Endocrine, nutritional and metabolic diseases complicating childbirth; E03.9 Hypothyroidism, unspecified; Z37.0 Single live birth; Z3A.39 39 weeks gestation of pregnancy; Z79.82 Long term (current) use of aspirin; Z79.890 Hormone replacement therapy
CPT/HCPCS: 83036; 85025; 85610; 85730; 86850; 86900; 86901; 88307

== ENCOUNTER 2019-01-08 15:59 | Inpatient (IN) | payer BC, OTHER ==
[2019-01-08] MEDS ORDERED: SODIUM CHLORIDE 0.9% 1,000 ML IV STA (16:40)
--- NOTE | 2019-01-08 16:45 | ED ---
Fever HPI - General Chief Complaint: Fever Stated Complaint: POST OP RASH, FEVER, MIGRAINE Time Seen by Provider: 01/08/19 16:23 Source: patient Mode of arrival: ambulatory Limitations: no limitations - History of Present Illness Initial Comments: Patient is a 28-year-old female, with history of factor V Leiden, presenting to emergency Department with complaints of a fever, rash, headache for the past few days. Patient is status post one week from . was performed by Dr. Yañez. There is no complications during the procedure. Patient states for the last few days she has been running intermittent fevers, the highest being 101. Patient states she has been alternating between Tylenol and Motrin. Patient states on Sunday she started developing a headache and rash as well. She describes the rash as on her chest, arms, neck, face has erythematous, it is not itchy or raised. Patient has never had this kind of rash before. Patient states her headache is mild at this moment. Patient last had Tylenol approximately 2 hours prior to arrival. Patient has no other complaints at this time. Upon arrival to the ER, patient's BP is elevated at 163/101, rest of vitals are normal. - Related Data Home Medications Medication Instructions Recorded Confirmed Pnv,Calcium 72/Iron/Folic Acid 1 tab PO HS 09/29/14 12/31/18 [ Plus Tablet] Aspirin [Adult Low Dose Aspirin EC] 81 mg PO DAILY 11/29/18 12/30/18 Folic Acid 1 mg PO DAILY 11/29/18 12/31/18 Insulin Aspart [NovoLOG] 22 units SQ HS 11/29/18 12/30/18 Levothyroxine Sodium 125 mcg PO DAILY 11/29/18 12/31/18 metFORMIN HCL 500 mg PO HS 11/29/18 12/31/18 Previous Rx's Medication Instructions Recorded Enoxaparin [Lovenox] 40 mg SQ DAILY #30 syringe 01/01/19 HYDROcodone/APAP 5-325MG [[place] 1 each PO Q4HR PRN #18 tab 01/01/19 5-325] Ibuprofen [Motrin] 600 mg PO Q6HR PRN #40 tab 01/01/19 Allergies Allergy/AdvReac Type Severity Reaction Status Date / Time amoxicillin Allergy Rash/Hives Verified 01/08/19 16:11 Penicillins Allergy Rash/Hives Verified 01/08/19 16:11 Review of Systems ROS Statement: Those systems with pertinent positive or pertinent negative responses have been documented in the HPI. ROS Other: All systems not noted in ROS Statement are negative. Past Medical History Past Medical History: No Reported History History of Any Multi-Drug Resistant Organisms: None Reported Past Surgical History: Section Past Anesthesia/Blood Transfusion Reactions: No Reported Reaction Past Psychological History: Anxiety Smoking Status: Never smoker Past Alcohol Use History: None Reported Past Drug Use History: None Reported - Past Family History Father Family Medical History: Cancer Additional Family Medical History / Comment(s): prostate cancer Mother Family Medical History: Cancer Additional Family Medical History / Comment(s): cervical cancer General Exam - General Exam Comments Initial Comments: GENERAL: Well-appearing, well-nourished and in no acute distress. HEAD: Atraumatic, normocephalic. EYES: Pupils equal round and reactive to light, extraocular movements intact, sclera anicteric, conjunctiva are normal. ENT: TMs normal, nares patent, oropharynx clear without exudates. Moist mucous memb ranes. NECK: Normal range of motion, supple without lymphadenopathy or JVD. LUNGS: Breath sounds clear to auscultation bilaterally and equal. No wheezes rales or rhonchi. HEART: Regular rate and rhythm without murmurs, rubs or gallops. ABDOMEN: Patient has incision lower suprapubic area, incision is clean, dry, and intact, no signs of infection. Some mild pain surrounding the incision. Soft, normoactive bowel sounds. No guarding, no rebound. No masses appreciated. : Deferred EXTREMITIES: Normal range of motion, no pitting or edema. No clubbing or cyanosis. NEUROLOGICAL: Cranial nerves II through XII grossly intact. Normal speech, normal gait. PSYCH: Normal mood, normal affect. SKIN: Warm, Dry, normal turgor, no rashes or lesions noted. Limitations: no limitations Course Vital Signs 01/08/19 01/08/19 01/08/19 16:08 17:37 19:22 Temperature 97.9 F Pulse Rate 63 57 L 58 L Respiratory 20 18 16 Rate Blood Pressure 163/101 169/95 161/103 O2 Sat by Pulse 96 100 98 Oximetry 01/08/19 01/08/19 19:40 20:32 Temperature 98.7 F Pulse Rate 87 Respiratory 16 16 Rate Blood Pressure 145/92 142/85 O2 Sat by Pulse 99 Oximetry Medical Decision Making - Medical Decision Making Patient is a 28-year-old female presenting with a headache, intermittent fevers, rash for the past few days. Patient is postop day [address] Yañez. Patient was hypertensive upon arrival at 163/101. Respiratory vital signs are normal. Lab work is unremarkable. UA shows no signs of infection, there is no proteinuria. Patient was given hydralazine, fluids, morphine which did improve blood pressure and headache, 145/92. Case was discussed with on- call [employer], Dr. Herr who will accept the patient. Patient will be admitted for BP monitoring. Chest x-ray is pending at this time. Case discussed with Dr. Sutton. - Lab Data Result diagrams: 01/08/19 17:10 01/08/19 17:10 Lab Results 01/08/19 01/08/19 01/08/19 Range/Units 17:10 17:10 17:10 WBC 8.2 (3.8-10.6) k/uL RBC 4.46 (3.80-5.40) m/uL Hgb 12.8 (11.4-16.0) gm/dL Hct 37.4 (34.0-46.0) % MCV 83.8 (80.0-100.0) fL MCH 28.7 (25.0-35.0) pg MCHC 34.2 (31.0-37.0) g/dL RDW 13.6 (11.5-15.5) % Plt Count 407 (150-450) k/uL Neutrophils % 63 % Lymphocytes % 28 % Monocytes % 5 % Eosinophils % 3 % Basophils % 0 % Neutrophils # 5.2 (1.3-7.7) k/uL Lymphocytes # 2.3 (1.0-4.8) k/uL Monocytes # 0.4 (0-1.0) k/uL Eosinophils # 0.2 (0-0.7) k/uL Basophils # 0.0 (0-0.2) k/uL PT 10.6 (9.0-12.0) sec INR 1.0 (<1.2) APTT 23.9 (22.0-30.0) sec Sodium 139 (137-145) mmol/L Potassium 4.1 (3.5-5.1) mmol/L Chloride 107 (98-107) mmol/L Carbon Dioxide 24 (22-30) mmol/L Anion Gap 8 mmol/L BUN 11 (7-17) mg/dL Creatinine 0.70 (0.52-1.04) mg/dL Est GFR (CKD-EPI)AfAm >90 (>60 ml/min/1.73 sqM) Est GFR (CKD-EPI)NonAf >90 (>60 ml/min/1.73 sqM) Glucose 93 (74-99) mg/dL Calcium 9.0 (8.4-10.2) mg/dL Total Bilirubin 0.4 (0.2-1.3) mg/dL AST 34 (14-36) U/L ALT 79 H (9-52) U/L Alkaline Phosphatase 118 (38-126) U/L Total Protein 6.6 (6.3-8.2) g/dL Albumin 3.6 (3.5-5.0) g/dL Urine Color Urine Appearance (Clear) Urine pH (5.0-8.0) Ur Specific [place] (1.001-1.035) Urine Protein (Negative) Urine Glucose (UA) (Negative) Urine Ketones (Negative) Urine Blood (Negative) Urine Nitrite (Negative) Urine Bilirubin (Negative) Urine Urobilinogen (<2.0) mg/dL Ur Leukocyte Esterase (Negative) 01/08/19 Range/Units 17:10 WBC (3.8-10.6) k/uL RBC (3.80-5.40) m/uL Hgb (11.4-16.0) gm/dL Hct (34.0-46.0) % MCV (80.0-100.0) fL MCH (25.0-35.0) pg MCHC (31.0-37.0) g/dL RDW (11.5-15.5) % Plt Count (150-450) k/uL Neutrophils % % Lymphocytes % % Monocytes % % Eosinophils % % Basophils % % Neutrophils # (1.3-7.7) k/uL Lymphocytes # (1.0-4.8) k/uL Monocytes # (0-1.0) k/uL Eosinophils # (0-0.7) k/uL Basophils # (0-0.2) k/uL PT (9.0-12.0) sec INR (<1.2) APTT (22.0-30.0) sec Sodium (137-145) mmol/L Potassium (3.5-5.1) mmol/L Chloride (98-107) mmol/L Carbon Dioxide (22-30) mmol/L Anion Gap mmol/L BUN (7-17) mg/dL Creatinine (0.52-1.04) mg/dL Est GFR (CKD-EPI)AfAm (>60 ml/min/1.73 sqM) Est GFR (CKD-EPI)NonAf (>60 ml/min/1.73 sqM) Glucose (74-99) mg/dL Calcium (8.4-10.2) mg/dL Total Bilirubin (0.2-1.3) mg/dL AST (14-36) U/L ALT (9-52) U/L Alkaline Phosphatase (38-126) U/L Total Protein (6.3-8.2) g/dL Albumin (3.5-5.0) g/dL Urine Color Light Yellow Urine Appearance Clear (Clear) Urine pH 7.0 (5.0-8.0) Ur Specific [place] 1.008 (1.001-1.035) Urine Protein Negative (Negative) Urine Glucose (UA) Negative (Negative) Urine Ketones Negative (Negative) Urine Blood Negative (Negative) Urine Nitrite Negative (Negative) Urine Bilirubin Negative (Negative) Urine Urobilinogen <2.0 (<2.0) mg/dL Ur Leukocyte Esterase Negative (Negative) Disposition Clinical Impression: Preeclampsia in period, Headache Disposition: ADMITTED IP TO THIS [facility] Condition: Stable Is patient prescribed a controlled substance at d/c from ED?: No Decision Date: 01/08/19 Decision Time: 20:18
[2019-01-08 17:37] LABS: Appearance,Urine Clear (Clear); Bilirubin,Urine Negative (Negative); Blood,Urine Negative (Negative); Color,Urine Light Yellow; Glucose,Urine (UA) Negative (Negative); Ketones,Urine Negative (Negative); Leukocyte Esterase,Urine Negative (Negative); Nitrite,Urine Negative (Negative); Protein,Urine Negative (Negative); Specific Gravity,Urine 1.008 (1.001-1.035); Urobilinogen,Urine <2.0 mg/dL (<2.0)
[2019-01-08 17:43] LABS: ALT 79 U/L (9-52); AST 34 U/L (14-36); African American GFR (CKD) >90 (>60 ml/min/1.73 sqM); Albumin 3.6 g/dL (3.5-5.0); Alkaline Phosphatase 118 U/L (38-126); Anion Gap 8 mmol/L; Blood Urea Nitrogen 11 mg/dL (7-17); Carbon Dioxide 24 mmol/L (22-30); Chloride 107 mmol/L (98-107); Glucose 93 mg/dL (74-99); Non-African American GFR(CKD) >90 (>60 ml/min/1.73 sqM); Partial Thromboplastin Time 23.9 sec (22.0-30.0); Potassium 4.1 mmol/L (3.5-5.1); Prothrombin Time 10.6 sec (9.0-12.0); Sodium 139 mmol/L (137-145); Total Bilirubin 0.4 mg/dL (0.2-1.3); Total Protein 6.6 g/dL (6.3-8.2)
[2019-01-08] MEDS ORDERED: MORPHINE SULFATE 2 MG/ML SYRINGE IVP ONE (17:43)
[2019-01-08 19:20] LABS: Basophils % (A) 0 %; Eosinophils # (A) 0.2 k/uL (0-0.7); Eosinophils % (A) 3 %; HCT 37.4 % (34.0-46.0); HGB 12.8 gm/dL (11.4-16.0); Lymphocytes # (A) 2.3 k/uL (1.0-4.8); Lymphocytes % (A) 28 %; MCH 28.7 pg (25.0-35.0); MCHC 34.2 g/dL (31.0-37.0); MCV 83.8 fL (80.0-100.0); Mean Platelet Volume 5.6; Monocytes # (A) 0.4 k/uL (0-1.0); Monocytes % (A) 5 %; Neutrophils # (A) 5.2 k/uL (1.3-7.7); Neutrophils % (A) 63 %; Platelet Count 407 k/uL (150-450); RBC 4.46 m/uL (3.80-5.40); RDW 13.6 % (11.5-15.5); WBC 8.2 k/uL (3.8-10.6)
[2019-01-08] MEDS ORDERED: hydrALAZINE HCL 20 MG/ML 1 ML VIAL IVP STA ×2 (19:24→20:14)
[2019-01-08] MEDS ORDERED: NALOXONE 0.4 MG/ML 1 ML VIAL IV PRN (20:11)
[2019-01-08] MEDS ORDERED: SODIUM CHLORIDE 0.9% 1,000 ML IV SCH (20:15)
[2019-01-08] MEDS ORDERED: MORPHINE SULFATE 2 MG/ML SYRINGE IVP PRN (20:15)
--- NOTE | 2019-01-08 20:37 | XR ---
EXAMINATION TYPE: XR chest 2V DATE OF EXAM: 01/08/2019 COMPARISON: NONE HISTORY: Fever after recent delivery 8 days ago. TECHNIQUE: Frontal and lateral views of the chest are obtained. FINDINGS: Overlying bra strap is seen. There is patchy left basilar opacity. Right lung is clear. No pleural effusion or pneumothorax seen bilaterally. The cardiac silhouette size is upper limits of nor mal. The osseous structures are intact. IMPRESSION: Possible early left basilar acute infiltrate and/or atelectasis.
--- NOTE | 2019-01-08 21:15 | P.HPOB ---
History of Present Illness H&P Date: 01/08/19 Chief Complaint: headache 28 year old presents 8 days after a repeat low transverse with a headache. Her BP upon arrival to the ER was 160/101. She was given one dose of hydralazine and her BP is now 135/86. She is still complaining of the headache and blurred vision. She also says she has been feeling ill the last few days and had a fever up to 101 yesterday. When her headache gets worse she has a raised, macular rash that gets worse on her chest and face. The only thing that was new to her is Lovenox started after the . Review of Systems All systems: negative Constitutional: Reports fever, Denies chills Eyes: bilateral blurred vision, denies pain Ears, nose, mouth and throat: Reports headache, Denies sore throat Cardiovascular: Denies chest pain, Denies shortness of breath Respiratory: Denies cough Gastrointestinal: Denies abdominal pain, Denies diarrhea, Denies nausea, Denies vomiting Genitourinary: Denies dysuria, Denies hematuria Musculoskeletal: Denies myalgias Integumentary: Denies pruritus, Denies rash Neurological: Denies numbness, Denies weakness Psychiatric: Denies anxiety, Denies depression Endocrine: Denies fatigue, Denies weight change Past Medical History Additional Past Medical History / Comment(s): Factor V History of Any Multi-Drug Resistant Organisms: None Reported Past Surgical History: Section Past Anesthesia/Blood Transfusion Reactions: No Reported Reaction Past Psychological History: Anxiety Smoking Status: Never smoker Past Alcohol Use History: None Reported Past Drug Use History: None Reported - Past Family History Father Family Medical History: Cancer Additional Family Medical History / Comment(s): prostate cancer Mother Family Medical History: Cancer Additional Family Medical History / Comment(s): cervical cancer Medications and Allergies Home Medications Medication Instructions Recorded Confirmed Type Pnv,Calcium 72/Iron/Folic Acid 1 tab PO HS 09/29/14 12/31/18 History [ Plus Tablet] Aspirin [Adult Low Dose Aspirin EC] 81 mg PO DAILY 11/29/18 12/30/18 History Folic Acid 1 mg PO DAILY 11/29/18 12/31/18 History Insulin Aspart [NovoLOG] 22 units SQ HS 11/29/18 12/30/18 History Levothyroxine Sodium 125 mcg PO DAILY 11/29/18 12/31/18 History metFORMIN HCL 500 mg PO HS 11/29/18 12/31/18 History Enoxaparin [Lovenox] 40 mg SQ DAILY #30 syringe 01/01/19 Rx HYDROcodone/APAP 5-325MG [[place] 1 each PO Q4HR PRN #18 tab 01/01/19 Rx 5-325] Ibuprofen [Motrin] 600 mg PO Q6HR PRN #40 tab 01/01/19 Rx Allergies Allergy/AdvReac Type Severity Reaction Status Date / Time amoxicillin Allergy Rash/Hives Verified 01/08/19 16:11 Penicillins Allergy Rash/Hives Verified 01/08/19 16:11 Exam Osteopathic Statement: *. No significant issues noted on an osteopathic structural exam other than those noted in the History and Physical/Consult. Vital Signs Temp Pulse Resp BP Pulse Ox 01/08/19 20:32 87 16 142/85 99 01/08/19 19:40 98.7 F 16 145/92 01/08/19 19:22 58 L 16 161/103 98 01/08/19 17:37 57 L 18 169/95 100 01/08/19 16:08 97.9 F 63 20 163/101 96 Intake and Output 01/08/19 01/08/19 01/08/19 06:59 14:59 22:59 Other: Weight 99.79 kg HEart: RRR Lungs: CTAB; chest, face, and upper arms have a hive like macular rash that is raised and hot. ABdomen: soft, tender to deep palpation Extremeties: neg gume's, 3+/4 DTR, 1+ BLLE edema Results Result Diagrams: 01/08/19 17:10 01/08/19 17:10 Abnormal Lab Results - Last 24 Hours (Table) 01/08/19 Range/Units 17:10 ALT 79 H (9-52) U/L Assessment and Plan (1) Status post repeat low transverse section Current Visit: Yes Status: Acute Code(s): Z98.891 - HISTORY OF UTERINE SCAR FROM PREVIOUS SURGERY SNOMED Code(s): 718488075 (2) Preeclampsia in period Current Visit: Yes Status: Acute Code(s): O14.95 - UNSPECIFIED PRE- ECLAMPSIA, COMPLICATING THE PUERPERIUM SNOMED Code(s): 286833427 (3) Factor 5 Leiden mutation, heterozygous Current Visit: No Status: Acute Code(s): D68.51 - ACTIVATED PROTEIN C RESISTANCE SNOMED Code(s): 924159759 Plan: 1. admit to [facility] 2. mag sulfate 3. seizure precautions 4. pre-eclamptic labs that ER did not get yet.
[2019-01-08] MEDS ORDERED: MAGNESIUM SULFATE-WATER PMX 4 GM in WATER FOR INJECTION 1 100ML.BAG IVPB ONE (21:17)
[2019-01-08] MEDS ORDERED: CALCIUM GLUCONATE 1 GM/10 ML VIAL IV PRN (21:17)
[2019-01-08] MEDS ORDERED: LACTATED RINGERS 1,000 ML IV SCH (21:30)
[2019-01-08 21:34] LABS: Creatinine,Urine Random 31.2 mg/dL
[2019-01-08] MEDS: ACETAMINOPHEN TAB 325 MG TAB PO PRN (21:42)
[2019-01-08] MEDS: MAGNESIUM SULFATE-WATER PMX 20 GM in WATER FOR INJECTION 1 500ML.BAG IV SCH (22:02)
[2019-01-09] MEDS: ACETAMINOPHEN TAB 325 MG TAB PO PRN ×2 (04:11→12:15)
--- NOTE | 2019-01-09 06:57 | P.PN ---
Progress Note - Text Progress Note Date: 01/09/19 Please see dictated H&P per Dr. Herr on this patient's admission. Brief summary this is a 28-year-old female status post repeat section approximately 1 week ago who is admitted through the emergency department with hypertension. During her initial hospitalization patient had no problems with high blood pressure however yesterday she called us that she had a headache and fever and generalized malaise and therefore was sent to the emergency department. Blood pressure was elevated there and she was given one dose of antihypertensive. Blood pressures have now been fine. Laboratory showed a mild elevation 1 liver tests but otherwise were negative. No proteinuria. Patient's had a low-grade temperature however no evidence of infection and her white count was normal. Exam today shows her incision to be intact and dry without evidence of hematoma or infection. The only thing different this patient is done started Lovenox , although she was on this medication in her previous . At this time I'm not certain this patient has late preeclampsia, however I'm going to continue the magnesium until noon today her blood pressures remain normal try off the magnesium. Going to discontinue the Lovenox. Will repeat blood work this morning and continue to watch closely.
[2019-01-09 07:42] LABS: Basophils # (A) 0.1 k/uL (0-0.2); Basophils % (A) 0 %; Eosinophils # (A) 0.2 k/uL (0-0.7); Eosinophils % (A) 2 %; HCT 41.8 % (34.0-46.0); HGB 14.2 gm/dL (11.4-16.0); Lymphocytes # (A) 2.6 k/uL (1.0-4.8); Lymphocytes % (A) 21 %; MCH 28.5 pg (25.0-35.0); MCHC 33.9 g/dL (31.0-37.0); MCV 83.9 fL (80.0-100.0); Mean Platelet Volume 5.3; Monocytes # (A) 0.5 k/uL (0-1.0); Monocytes % (A) 4 %; Neutrophils # (A) 8.8 k/uL (1.3-7.7); Neutrophils % (A) 71 %; Platelet Count 513 k/uL (150-450); RBC 4.98 m/uL (3.80-5.40); RDW 13.7 % (11.5-15.5); WBC 12.3 k/uL (3.8-10.6)
[2019-01-09] MEDS: LEVOTHYROXINE 125 MCG TAB PO SCH (07:45)
[2019-01-09 07:56] LABS: ALT 82 U/L (9-52); AST 37 U/L (14-36); African American GFR (CKD) >90 (>60 ml/min/1.73 sqM); Alkaline Phosphatase 130 U/L (38-126); Anion Gap 9 mmol/L; Blood Urea Nitrogen 7 mg/dL (7-17); Calcium 8.3 mg/dL (8.4-10.2); Carbon Dioxide 28 mmol/L (22-30); Chloride 104 mmol/L (98-107); Glucose 103 mg/dL (74-99); Non-African American GFR(CKD) >90 (>60 ml/min/1.73 sqM); Potassium 4.1 mmol/L (3.5-5.1); Sodium 141 mmol/L (137-145); Total Bilirubin 0.6 mg/dL (0.2-1.3); Total Protein 7.3 g/dL (6.3-8.2); Uric Acid 4.7 mg/dL (3.7-7.4)
[2019-01-09] MEDS: IBUPROFEN 600 MG TAB PO PRN ×2 (08:05→16:01)
[2019-01-09] MEDS: MAGNESIUM SULFATE-WATER PMX 20 GM in WATER FOR INJECTION 1 500ML.BAG IV SCH (08:06)
[2019-01-09] MEDS ORDERED: IBUPROFEN 600 MG TAB PO SCH (09:00)
[2019-01-10 04:40] VITALS: RESP 16
[2019-01-10] MEDS: ACETAMINOPHEN TAB 325 MG TAB PO PRN (05:13)
--- NOTE | 2019-01-10 06:39 | P.PN ---
Progress Note - Text Progress Note Date: 01/10/19 Patient rested overnight without new complaints. Vital signs are stable blood pressures are normal. Incision is intact and dry. Steri-Strips are removed today. Repeat blood work yesterday showed CBC still was fine she did have some mild elevation of her AST and ALTs. It is my impression this patient is stable for discharge home follow up in the office next week as an outpatient. This point I do not think she has hypertension or preeclampsia not certain why she had an elevation of her blood pressure in the emergency department. Patient's headache has subsided. She and I did discuss her elevated prolactin level at her infertility specialist ([id number]). We'll follow up with this as an outpatient as well.
--- NOTE | 2019-01-10 06:42 | P.DS ---
Providers Date of admission: 01/08/19 20:23 Expected date of discharge: 01/10/19 Attending physician: Brian Yañez Primary care physician: Stated None Hospital Course: Please see dictated H&P for intimate details of this patient's admission. Brief summary this pleasant 28-year-old multipara patient status post section approximately 1 week ago presented to the emergency department with complaints of headache and general malaise. Patient did have elevated blood pressure required 1 dose of hydralazine. Patient was subsequently placed on magnesium however blood pressures were normotensive thereafter. Preeclampsia l abs were unremarkable with the exception of an elevated liver test but platelets were normal. Patient's magnesium was discontinued and labs are repeated. She had multiple blood pressures that were normal. Patient's felt be stable for discharge home follow up with me as an outpatient next week. I'm not certain at this point she had preeclampsia due to its presentation, most likely this is consistent with a viral illness. This also appears to be improving. There is no evidence of infection in the incision or postoperatively. I did discontinue her Lovenox due to the possibility that she could be having a reaction to this. She encouraged to ambulate at home. Patient Condition at Discharge: Good Plan - Discharge Summary New Discharge Prescriptions: No Action Pnv,Calcium 72/Iron/Folic Acid [ Plus Tablet] 1 tab PO HS Folic Acid 1 mg PO DAILY Aspirin [Adult Low Dose Aspirin EC] 81 mg PO DAILY Insulin Aspart [NovoLOG] 22 units SQ HS metFORMIN HCL 500 mg PO HS Levothyroxine Sodium 125 mcg PO DAILY Enoxaparin [Lovenox] 40 mg SQ DAILY #30 syringe Ibuprofen [Motrin] 600 mg PO Q6HR PRN #40 tab PRN Reason: Mild Pain Or Fever >= 100.5 HYDROcodone/APAP 5-325MG [[place] 5-325] 1 each PO Q4HR PRN #18 tab PRN Reason: Moderate Pain Discharge Medication List Pnv,Calcium 72/Iron/Folic Acid [ Plus Tablet] 1 tab PO HS 09/29/14 [History] Aspirin [Adult Low Dose Aspirin EC] 81 mg PO DAILY 11/29/18 [History] Folic Acid 1 mg PO DAILY 11/29/18 [History] Insulin Aspart [NovoLOG] 22 units SQ HS 11/29/18 [History] Levothyroxine Sodium 125 mcg PO DAILY 11/29/18 [History] metFORMIN HCL 500 mg PO HS 11/29/18 [History] Enoxaparin [Lovenox] 40 mg SQ DAILY #30 syringe 01/01/19 [Rx] HYDROcodone/APAP 5-325MG [[place] 5-325] 1 each PO Q4HR PRN #18 tab 01/01/19 [Rx] Ibuprofen [Motrin] 600 mg PO Q6HR PRN #40 tab 01/01/19 [Rx] Follow up Appointment(s)/Referral(s): Brian Yañez MD [STAFF PHYSICIAN] - 1 Week Activity/Diet/Wound Care/Special Instructions: Postoperative instructions as previously discussed. No heavy lifting or strenuous activities. Please call if any concerns. Discharge Disposition: HOME SELF-CARE
[2019-01-10] MEDS: LEVOTHYROXINE 125 MCG TAB PO SCH (06:55)
[2019-01-10 08:43] VITALS: BP 124/77; PULSE 65; TEMP 97.2
== END 2019-01-10 08:00 | disposition home or self-care (01) | DRG 776 ==
LOC: EC 15:59 → 4FBP 20:23
PROVIDERS: ADMIT Obstetrics & Gynecology; ATTEND Obstetrics & Gynecology
DX: O98.53 Other viral diseases complicating the puerperium (principal); O99.13 Other diseases of the blood and blood-forming organs and certain disorders involving the immune mechanism complicating the puerperium; D68.51 Activated protein C resistance; E22.1 Hyperprolactinemia; B34.9 Viral infection, unspecified; O99.345 Other mental disorders complicating the puerperium; F41.9 Anxiety disorder, unspecified; R03.0 Elevated blood-pressure reading, without diagnosis of hypertension; Z79.4 Long term (current) use of insulin; Z79.890 Hormone replacement therapy; Z79.82 Long term (current) use of aspirin; Z80.42 Family history of malignant neoplasm of prostate; Z80.49 Family history of malignant neoplasm of other genital organs; Z98.891 History of uterine scar from previous surgery; Z79.01 Long term (current) use of anticoagulants
CPT/HCPCS: 36415; 71046; 80053; 81003; 82570; 83615; 84156; 84550; 85025; 85610; 85730; 96361; 96374; 96375; 99284

== ENCOUNTER → 2019-02-21 | Outpatient (CLI) | payer BC, OTHER ==
--- NOTE | 2019-02-21 17:33 | US ---
EXAMINATION TYPE: US abdomen complete DATE OF EXAM: 02/21/2019 COMPARISON: NONE CLINICAL HISTORY: K81.9 Cholecystitis. Pain elevated liver enzymes. EXAM MEASUREMENTS: Liver Length: 14.6 cm Gallbladder Wall: .2 cm CBD: .2 cm Spleen: 9.8 cm Right Kidney: 11.8 x 4.5 x 4.9 cm Left Kidney: 9.9 x 5.3 x 3.9 cm Pancreas: Head and body appear normal Tail obscured by overlying bowel gas Liver: There is mild fatty infiltration liver. No discrete masses or cysts are evident. Gallbladder: wnl Evidence for sonographic Bear's sign: No CBD: wnl Spleen: wnl Right Kidney: wnl Left Kidney: wnl Upper IVC: wnl Abd Aorta: wnl IMPRESSION: 1. Mild fatty infiltration of the liver.
== END | disposition home or self-care (01) ==
LOC: RADUSMAIN 09:30
PROVIDERS: ATTEND Physician Assistant
DX: K76.0 Fatty (change of) liver, not elsewhere classified (principal)
CPT/HCPCS: 76700

== ENCOUNTER 2019-02-23 15:01 | Emergency (ER) | payer BC, OTHER ==
[2019-02-23 15:05] VITALS: TEMP 97.5
[2019-02-23] MEDS ORDERED: SODIUM CHLORIDE 0.9% 1,000 ML IV STA (15:26)
--- NOTE | 2019-02-23 15:34 | ED ---
Abdominal Pain HPI - General Source: patient Mode of arrival: ambulatory Limitations: no limitations <Enrique Dumont - Last Filed: 02/23/19 22:39> <Griselda Patel - Last Filed: 02/26/19 21:54> - General Chief Complaint: Abdominal Pain Stated Complaint: Abd Pain Time Seen by Provider: 02/23/19 15:09 - History of Present Illness Initial Comments: Patient is a 28-year-old female presenting to emergency Department with chief complaint of abdominal pain. Patient reports she had a 2 months ago and afterwards developed gradual elevation of liver enzymes. She also developed postprandial right upper quadrant abdominal pain associated with nausea but no vomiting or diarrhea. Patient does report constipation after the but that is her baseline. Patient reports the pain typically starts soon after eating any solid food except for fruit Or liquids, and last for several hours after. Patient states 2 days ago she had increased pain. She denies any increased urgency frequency or dysuria. Patient denies materia, hematochezia or melena. She does report taking [id number] analgesics with some improvement in symptoms. Patient states that she was already advised to get a HIDA scan per refused to do it because she is currently breast-feeding. Patient states she had a right upper quadrant ultrasound 2 days ago. (Enrique Dumont) - Related Data Home Medications Medication Instructions Recorded Confirmed Pnv,Calcium 72/Iron/Folic Acid 1 tab PO HS 09/29/14 12/31/18 [ Plus Tablet] Aspirin [Adult Low Dose Aspirin EC] 81 mg PO DAILY 11/29/18 12/30/18 Folic Acid 1 mg PO DAILY 11/29/18 12/31/18 Insulin Aspart [NovoLOG] 22 units SQ HS 11/29/18 12/30/18 Levothyroxine Sodium 125 mcg PO DAILY 11/29/18 12/31/18 metFORMIN HCL 500 mg PO HS 11/29/18 12/31/18 Previous Rx's Medication Instructions Recorded Enoxaparin [Lovenox] 40 mg SQ DAILY #30 syringe 01/01/19 HYDROcodone/APAP 5-325MG [[place] 1 each PO Q4HR PRN #18 tab 01/01/19 5-325] Ibuprofen [Motrin] 600 mg PO Q6HR PRN #40 tab 11/27/19 Allergies Allergy/AdvReac Type Severity Reaction Status Date / Time amoxicillin Allergy Rash/Hives Verified 02/23/19 15:05 Penicillins Allergy Rash/Hives Verified 02/23/19 15:05 Review of Systems ROS Other: All systems not noted in ROS Statement are negative. <JuliaEnrique - Last Filed: 02/23/19 22:39> ROS Other: All systems not noted in ROS Statement are negative. <AbhimichelleGriselda Dianna - Last Filed: 02/26/19 21:54> ROS Statement: Those systems with pertinent positive or pertinent negative responses have been documented in the HPI. 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 History of Any Multi-Drug Resistant Organisms: None Reported Past Surgical History: Section Past Anesthesia/Blood Transfusion Reactions: No Reported Reaction Past Psychological History: Anxiety Smoking Status: Never smoker Past Alcohol Use History: None Reported Past Drug Use History: None Reported - Past Family History Father Family Medical History: Cancer Additional Family Medical History / Comment(s): prostate cancer Mother Family Medical History: Cancer Additional Family Medical History / Comment(s): cervical cancer <JuliaEnrique - Last Filed: 02/23/19 22:39> General Exam Limitations: no limitations General appearance: alert, in no apparent distress Head exam: Present: atraumatic, normocephalic, normal inspection Eye exam: Present: normal appearance, PERRL, EOMI Pupils: Present: normal accommodation ENT exam: Present: normal exam, normal oropharynx, mucous membranes moist Neck exam: Present: normal inspection, full ROM Respiratory exam: Present: normal lung sounds bilaterally. Absent: chest wall tenderness Cardiovascular Exam: Present: regular rate, normal rhythm, normal heart sounds GI/Abdominal exam: Present: soft, tenderness (Right upper quadrant tenderness. Negative Bear sign. Negative McBurney point tenderness. Negative Rovsing, obturator or psoas sign.). Absent: distended, guarding, rebound Extremities exam: Present: normal inspection Back exam: Present: normal inspection, full ROM Neurological exam: Present: alert, oriented X3 Psychiatric exam: Present: normal affect, normal mood Skin exam: Present: warm, dry, intact, normal color <JuliaEnrique - Last Filed: 02/23/19 22:39> Course Vital Signs 02/23/19 02/23/19 02/23/19 15:02 15:05 16:05 Temperature 97.5 F L Pulse Rate 82 78 81 Respiratory 18 20 20 Rate Blood Pressure 118/78 118/80 117/81 O2 Sat by Pulse 97 99 99 Oximetry 02/23/19 16:41 Temperature Pulse Rate Respiratory 20 Rate Blood Pressure O2 Sat by Pulse Oximetry Medical Decision Making - Lab Data Result diagrams: 02/23/19 15:30 02/23/19 15:30 <Enrique Dumont - Last Filed: 02/23/19 22:39> - Lab Data Result diagrams: 02/23/19 15:30 02/23/19 15:30 <Griselda Patel - Last Filed: 02/26/19 21:54> - Medical Decision Making Patient is 28-year-old female presenting to emergency Department with a chief complaint of abdominal pain. Patient has had elevated enzymes after her C- section 2 months ago. Patient received an ultrasound 2 days ago that shows no acute pathologies of the gallbladder but does show liver steatosis. On exam patient does have right upper quadrant tenderness that is only mild. Negative Bear point. No CVA tenderness. Patient does have elevated ALT with 2:1 ratio of ALT:AST suggesting a hepatic pathology rather than alcohol related. Alk phosphatases also elevated slightly compared to last laboratory work. Patient advised to avoid eating fatty foods. She was advised to obtain a HIDA scan. On reevaluation patient reports improvement in symptoms and is ready go home. She was advised to follow with primary care. Strict return parameters were thoroughly discussed the patient is understanding and agreeable. Patient vised alternate between Tylenol and Motrin for pain control. Case discussed with physician. (Enrique Dumont) I was available for consultation in the emergency department. The history and physical exam were done by the midlevel provider. I was consulted for this patients care. I reviewed the case with the midlevel provider and based on their presentation of the patient, I agree with the assessment, medical decision making and plan of care as documented. Chart was dictated using [employer] dictation software. Attempts were made to correct any dictation errors however some typographical errors may persist. (Griselda Patel) - Lab Data Lab Results 02/23/19 02/23/19 02/23/19 Range/Units 15:30 15:30 15:47 WBC 12.1 H (3.8-10.6) k/uL RBC 5.29 (3.80-5.40) m/uL Hgb 14.3 (11.4-16.0) gm/dL Hct 43.1 (34.0-46.0) % MCV 81.5 (80.0-100.0) fL MCH 27.1 (25.0-35.0) pg MCHC 33.2 (31.0-37.0) g/dL RDW 13.9 (11.5-15.5) % Plt Count 318 (150-450) k/uL Neutrophils % 58 % Lymphocytes % 24 % Monocytes % 4 % Eosinophils % 12 % Basophils % 1 % Neutrophils # 7.0 (1.3-7.7) k/uL Lymphocytes # 2.9 (1.0-4.8) k/uL Monocytes # 0.4 (0-1.0) k/uL Eosinophils # 1.5 H (0-0.7) k/uL Basophils # 0.1 (0-0.2) k/uL Sodium 139 (137-145) mmol/L Potassium 4.6 (3.5-5.1) mmol/L Chloride 104 (98-107) mmol/L Carbon Dioxide 27 (22-30) mmol/L Anion Gap 8 mmol/L BUN 17 (7-17) mg/dL Creatinine 0.71 (0.52-1.04) mg/dL Est GFR (CKD-EPI)AfAm >90 (>60 ml/min/1.73 sqM) Est GFR (CKD-EPI)NonAf >90 (>60 ml/min/1.73 sqM) Glucose 96 (74-99) mg/dL Calcium 10.1 (8.4-10.2) mg/dL Total Bilirubin 0.5 (0.2-1.3) mg/dL AST 36 (14-36) U/L ALT 71 H (4-34) U/L Alkaline Phosphatase 134 H (38-126) U/L Total Protein 7.6 (6.3-8.2) g/dL Albumin 4.3 (3.5-5.0) g/dL Amylase 46 (30-110) U/L Lipase 70 (23-300) U/L Urine Color Urine Appearance (Clear) Urine pH (5.0-8.0) Ur Specific [place] (1.001-1.035) Urine Protein (Negative) Urine Glucose (UA) (Negative) Urine Ketones (Negative) Urine Blood (Negative) Urine Nitrite (Negative) Urine Bilirubin (Negative) Urine Urobilinogen (<2.0) mg/dL Ur Leukocyte Esterase (Negative) Urine HCG, Qual Not Detected (Not Detectd) 02/23/19 Range/Units 15:47 WBC (3.8-10.6) k/uL RBC (3.80-5.40) m/uL Hgb (11.4-16.0) gm/dL Hct (34.0-46.0) % MCV (80.0-100.0) fL MCH (25.0-35.0) pg MCHC (31.0-37.0) g/dL RDW (11.5-15.5) % Plt Count (150-450) k/uL Neutrophils % % Lymphocytes % % Monocytes % % Eosinophils % % Basophils % % Neutrophils # (1.3-7.7) k/uL Lymphocytes # (1.0-4.8) k/uL Monocytes # (0-1.0) k/uL Eosinophils # (0-0.7) k/uL Basophils # (0-0.2) k/uL Sodium (137-145) mmol/L Potassium (3.5-5.1) mmol/L Chloride (98-107) mmol/L Carbon Dioxide (22-30) mmol/L Anion Gap mmol/L BUN (7-17) mg/dL Creatinine (0.52-1.04) mg/dL Est GFR (CKD-EPI)AfAm (>60 ml/min/1.73 sqM) Est GFR (CKD-EPI)NonAf (>60 ml/min/1.73 sqM) Glucose (74-99) mg/dL Calcium (8.4-10.2) mg/dL Total Bilirubin (0.2-1.3) mg/dL AST (14-36) U/L ALT (4-34) U/L Alkaline Phosphatase (38-126) U/L Total Protein (6.3-8.2) g/dL Albumin (3.5-5.0) g/dL Amylase (30-110) U/L Lipase (23-300) U/L Urine Color Yellow Urine Appearance Clear (Clear) Urine pH 6.5 (5.0-8.0) Ur Specific [place] 1.024 (1.001-1.035) Urine Protein Negative (Negative) Urine Glucose (UA) Negative (Negative) Urine Ketones Negative (Negative) Urine Blood Negative (Negative) Urine Nitrite Negative (Negative) Urine Bilirubin Negative (Negative) Urine Urobilinogen <2.0 (<2.0) mg/dL Ur Leukocyte Esterase Negative (Negative) Urine HCG, Qual (Not Detectd) Disposition Is patient prescribed a controlled substance at d/c from ED?: No Time of Disposition: 16:34 <Enrique Dumont - Last Filed: 02/23/19 22:39> <Griselda Patel - Last Filed: 02/26/19 21:54> Clinical Impression: Biliary colic Disposition: HOME SELF-CARE Condition: Stable Instructions (If sedation given, give patient instructions): Low Fat Diet (ED), Abdominal Pain (ED) Additional Instructions: Please follow up with primary care regarding a HIDA scan. Alternate between Tylenol and Motrin for pain control. Please return to emergency department if symptoms worsen. Referrals: Ajit Fall MD [Primary Care Provider] - 1-2 days
[2019-02-23 15:42] LABS: Basophils # (A) 0.1 k/uL (0-0.2); Basophils % (A) 1 %; Eosinophils # (A) 1.5 k/uL (0-0.7); Eosinophils % (A) 12 %; HCT 43.1 % (34.0-46.0); HGB 14.3 gm/dL (11.4-16.0); Lymphocytes # (A) 2.9 k/uL (1.0-4.8); Lymphocytes % (A) 24 %; MCH 27.1 pg (25.0-35.0); MCHC 33.2 g/dL (31.0-37.0); MCV 81.5 fL (80.0-100.0); Mean Platelet Volume 6.3; Monocytes # (A) 0.4 k/uL (0-1.0); Monocytes % (A) 4 %; Neutrophils % (A) 58 %; Platelet Count 318 k/uL (150-450); RBC 5.29 m/uL (3.80-5.40); RDW 13.9 % (11.5-15.5); WBC 12.1 k/uL (3.8-10.6)
[2019-02-23 15:53] LABS: ALT 71 U/L (4-34); AST 36 U/L (14-36); African American GFR (CKD) >90 (>60 ml/min/1.73 sqM); Albumin 4.3 g/dL (3.5-5.0); Alkaline Phosphatase 134 U/L (38-126); Amylase 46 U/L (30-110); Anion Gap 8 mmol/L; Blood Urea Nitrogen 17 mg/dL (7-17); Calcium 10.1 mg/dL (8.4-10.2); Carbon Dioxide 27 mmol/L (22-30); Chloride 104 mmol/L (98-107); Glucose 96 mg/dL (74-99); Non-African American GFR(CKD) >90 (>60 ml/min/1.73 sqM); Potassium 4.6 mmol/L (3.5-5.1); Sodium 139 mmol/L (137-145); Total Bilirubin 0.5 mg/dL (0.2-1.3); Total Protein 7.6 g/dL (6.3-8.2)
[2019-02-23 16:04] LABS: Appearance,Urine Clear (Clear); Bilirubin,Urine Negative (Negative); Blood,Urine Negative (Negative); Color,Urine Yellow; Glucose,Urine (UA) Negative (Negative); Ketones,Urine Negative (Negative); Leukocyte Esterase,Urine Negative (Negative); Nitrite,Urine Negative (Negative); PH, Urine 6.5 (5.0-8.0); Protein,Urine Negative (Negative); Specific Gravity,Urine 1.024 (1.001-1.035); Urobilinogen,Urine <2.0 mg/dL (<2.0)
[2019-02-23 16:36] VITALS: RESP 20
[2019-02-23 16:37] VITALS: BP 117/81; PULSE 81
== END 2019-02-23 16:41 | disposition home or self-care (01) ==
LOC: EC 15:01
DX: K80.50 Calculus of bile duct without cholangitis or cholecystitis without obstruction (principal); K76.0 Fatty (change of) liver, not elsewhere classified; R74.0 Nonspecific elevation of levels of transaminase and lactic acid dehydrogenase [LDH]; R74.8 Abnormal levels of other serum enzymes; K59.00 Constipation, unspecified; E07.9 Disorder of thyroid, unspecified; D68.51 Activated protein C resistance; Z88.0 Allergy status to penicillin; Z79.4 Long term (current) use of insulin; Z79.82 Long term (current) use of aspirin; Z79.890 Hormone replacement therapy
CPT/HCPCS: 36415; 80053; 81003; 81025; 82150; 83690; 85025; 96360; 99284

== ENCOUNTER → 2019-02-26 | Outpatient (CLI) | payer BC, OTHER ==
--- NOTE | 2019-02-26 14:59 | NM ---
EXAMINATION TYPE: NM hepatobiliary w EF DATE OF EXAM: 02/26/2019 COMPARISON: Abdominal ultrasound 5 days ago HISTORY: Biliary colic Per order. Patient is 8 weeks with epigastric pain and diminished a ppetite along with nausea heartburn and reflux-like symptoms per patient. TECHNIQUE: After the intravenous administration of 4.82 mCi Tc 99m Mebrofenin hepatobiliary scintigra phy is performed. Immediate images post injection. FINDINGS: There is satisfactory initial accumulation of tracer by the liver. The gallbladder is visualized wit hin 45 minutes. The small bowel activity is noted within 15 minutes. At one hour 8 ounces of oral e nsure plus is given to mimic CCK and gallbladder ejection fraction is calculated at 79 %, not diminis hed from the normal range. Therefore there is no scintigraphic evidence of cystic or common bile ko t obstruction to suggest acute cholecystitis or gallbladder dyskinesia. IMPRESSION: Ejection fraction is 79%, not diminished from the normal range.
== END | disposition home or self-care (01) ==
LOC: RADNMMAIN 12:43
PROVIDERS: ATTEND Physician Assistant
DX: K80.50 Calculus of bile duct without cholangitis or cholecystitis without obstruction (principal)
CPT/HCPCS: 78226; A9537

== ENCOUNTER → 2019-03-07 | Outpatient (CLI) | payer BC, OTHER ==
--- NOTE | 2019-03-07 10:37 | CT ---
EXAMINATION TYPE: CT abdomen pelvis wo con DATE OF EXAM: 03/07/2019 COMPARISON: None HISTORY: Right upper quadrant pain CT DLP: 1138 mGycm Examination of the solid and hollow viscera is limited given the lack of contrast. FINDINGS: LUNG BASES: No evidence for nodule. No evidence for infiltrate. Small bilateral pleural effusions not ed right slightly greater than left. LIVER/GB: The gallbladder is unremarkable. No space-occupying hepatic lesion. PANCREAS: No pancreatic mass identified. No inflammatory process seen. SPLEEN: No evidence for splenomegaly. No intrasplenic lesions seen. ADRENALS: No adrenal nodules identified. No evidence for thickening. KIDNEYS: No evidence for renal mass. No nephrolithiasis. There is mild right-sided hydronephrosis wit hout obstructing calculus identified. Correlate clinically. BOWEL: Appendix has a normal appearance. No evidence of bowel obstruction. No inflammatory process. Lymph nodes: No evidence for adenopathy greater than 1 cm. Abdominal aorta: Atheromatous changes seen. No evidence for aneurysm. Genital organs: No significant abnormality. Other: No significant abnormality. IMPRESSION: 1.There is mild right-sided hydronephrosis without obstructing calculus identified. Correlate clinica lly. 2. Small pleural effusions noted.
== END | disposition home or self-care (01) ==
LOC: RADCTMAIN 08:21
PROVIDERS: ATTEND Nurse Practitioner Family
DX: N13.30 Unspecified hydronephrosis (principal); R19.4 Change in bowel habit
CPT/HCPCS: 74176; Q9967

== ENCOUNTER 2019-03-10 15:26 | Emergency (ER) | payer BC, OTHER ==
[2019-03-10 15:41] VITALS: TEMP 97.8
[2019-03-10] MEDS ORDERED: SODIUM CHLORIDE 0.9% 1,000 ML IV STA (16:47)
[2019-03-10] MEDS ORDERED: METOCLOPRAMIDE 5 MG/ML 2 ML VIAL IVP STA (16:47)
[2019-03-10] MEDS ORDERED: KETOROLAC 30 MG/ML 1 ML VIAL IVP STA (16:48)
[2019-03-10 16:56] VITALS: RESP 18
[2019-03-10 16:56] LABS: Basophils # (A) 0.1 k/uL (0-0.2); Basophils % (A) 1 %; Eosinophils # (A) 1.3 k/uL (0-0.7); Eosinophils % (A) 11 %; HCT 41.6 % (34.0-46.0); HGB 14.4 gm/dL (11.4-16.0); Lymphocytes # (A) 2.2 k/uL (1.0-4.8); Lymphocytes % (A) 19 %; MCH 28.3 pg (25.0-35.0); MCHC 34.5 g/dL (31.0-37.0); Mean Platelet Volume 6.6; Monocytes # (A) 0.4 k/uL (0-1.0); Monocytes % (A) 3 %; Neutrophils # (A) 7.7 k/uL (1.3-7.7); Neutrophils % (A) 65 %; Platelet Count 302 k/uL (150-450); RBC 5.07 m/uL (3.80-5.40); RDW 14.4 % (11.5-15.5); WBC 11.8 k/uL (3.8-10.6)
[2019-03-10 17:03] LABS: Appearance,Urine Clear (Clear); Bilirubin,Urine Negative (Negative); Blood,Urine Negative (Negative); Color,Urine Yellow; Glucose,Urine (UA) Negative (Negative); Ketones,Urine Negative (Negative); Leukocyte Esterase,Urine Negative (Negative); Nitrite,Urine Negative (Negative); PH, Urine 5.5 (5.0-8.0); Protein,Urine Negative (Negative); Specific Gravity,Urine 1.021 (1.001-1.035); Urobilinogen,Urine <2.0 mg/dL (<2.0)
[2019-03-10 17:16] LABS: ALT 30 U/L (4-34); AST 25 U/L (14-36); African American GFR (CKD) >90 (>60 ml/min/1.73 sqM); Albumin 4.5 g/dL (3.5-5.0); Alkaline Phosphatase 122 U/L (38-126); Amylase 40 U/L (30-110); Anion Gap 11 mmol/L; Blood Urea Nitrogen 13 mg/dL (7-17); Calcium 9.5 mg/dL (8.4-10.2); Carbon Dioxide 26 mmol/L (22-30); Chloride 103 mmol/L (98-107); Glucose 94 mg/dL (74-99); Non-African American GFR(CKD) >90 (>60 ml/min/1.73 sqM); Potassium 4.4 mmol/L (3.5-5.1); Sodium 140 mmol/L (137-145); Total Bilirubin 0.7 mg/dL (0.2-1.3); Total Protein 7.6 g/dL (6.3-8.2)
--- NOTE | 2019-03-10 17:30 | XR ---
EXAMINATION TYPE: XR chest 2V DATE OF EXAM: 03/10/2019 COMPARISON: 01/08/2019 HISTORY: Fever TECHNIQUE: 2 views FINDINGS: Heart and mediastinum are normal. Lungs are clear. Diaphragm is normal. Bony thorax is inta ct. IMPRESSION: Normal chest. No change.
--- NOTE | 2019-03-10 18:40 | ED ---
Abdominal Pain HPI - General Chief Complaint: Abdominal Pain Stated Complaint: abdominal pain Time Seen by Provider: 03/10/19 16:04 Source: patient Mode of arrival: ambulatory Limitations: no limitations - History of Present Illness Initial Comments: Patient is a 28-year-old female presenting with right upper quadrant pain that has been ongoing for 1 month. Patient has had recent imaging including an ultrasound, HIDA scan, CT of the abdomen. All imaging was reviewed no pertinent findings. Patient continues to have right upper quadrant pain as well as nausea. She is 2 months post . She denies any vaginal bleeding or lower abdominal discomfort. She denies fever, chills, diarrhea, vomiting. She does admit to some mild right-sided chest pain that she does not know is coming from her right abdomen or not. She states her mother has history of PEs and she is concerned with that as well. Patient does have an appointment with Dr. Schmitt in 3 days. She has no other complaints at this time. Upon arrival to the ER, vitals are stable. - Related Data Home Medications Medication Instructions Recorded Confirmed Pnv,Calcium 72/Iron/Folic Acid 1 tab PO HS 09/29/14 12/31/18 [ Plus Tablet] Aspirin [Adult Low Dose Aspirin EC] 81 mg PO DAILY 11/29/18 12/30/18 Folic Acid 1 mg PO DAILY 11/29/18 12/31/18 Insulin Aspart [NovoLOG] 22 units SQ HS 11/29/18 12/30/18 Levothyroxine Sodium 125 mcg PO DAILY 11/29/18 12/31/18 metFORMIN HCL 500 mg PO HS 11/29/18 12/31/18 Previous Rx's Medication Instructions Recorded Enoxaparin [Lovenox] 40 mg SQ DAILY #30 syringe 01/01/19 HYDROcodone/APAP 5-325MG [[place] 1 each PO Q4HR PRN #18 tab 01/01/19 5-325] Ibuprofen [Motrin] 600 mg PO Q6HR PRN #40 tab 01/01/19 Ketorolac [Toradol] 10 mg PO Q8HR #10 tab 03/10/19 Metoclopramide [Reglan] 10 mg PO TID PRN #10 tab 03/10/19 Allergies Allergy/AdvReac Type Severity Reaction Status Date / Time amoxicillin Allergy Rash/Hives Verified 03/10/19 15:36 Penicillins Allergy Rash/Hives Verified 03/10/19 15:36 Review of Systems ROS Statement: Those systems with pertinent positive or pertinent negative responses have been documented in the HPI. ROS Other: All systems not noted in ROS Statement are negative. 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 History of Any Multi-Drug Resistant Organisms: None Reported Past Surgical History: Section Past Anesthesia/Blood Transfusion Reactions: No Reported Reaction Past Psychological History: Anxiety Smoking Status: Never smoker Past Alcohol Use History: None Reported Past Drug Use History: None Reported - Past Family History Father Family Medical History: Cancer Additional Family Medical History / Comment(s): prostate cancer Mother Family Medical History: Cancer Additional Family Medical History / Comment(s): cervical cancer General Exam - General Exam Comments Initial Comments: GENERAL: Well-appearing, well-nourished and in no acute distress. HEAD: Atraumatic, normocephalic. EYES: Pupils equal round and reactive to light, extraocular movements intact, sclera anicteric, conjunctiva are normal. ENT: TMs normal, nares patent, oropharynx clear without exudates. Moist mucous membranes. NECK: Normal range of motion, supple without lymphadenopathy or JVD. LUNGS: Breath sounds clear to auscultation bilaterally and equal. No wheezes rales or rhonchi. HEART: Regular rate and rhythm without murmurs, rubs or gallops. ABDOMEN: Right upper quadrant and epigastric tenderness, positive Bear sign. Soft, normoactive bowel sounds. No masses appreciated. : Deferred EXTREMITIES: Normal range of motion, no pitting or edema. No clubbing or cyanosis. NEUROLOGICAL: Normal speech, normal gait. PSYCH: Normal mood, normal affect. SKIN: Warm, Dry, normal turgor, no rashes or lesions noted. Limitations: no limitations Course Vital Signs 03/10/19 03/10/19 03/10/19 15:36 16:55 19:31 Temperature 97.8 F Pulse Rate 108 H 88 65 Respiratory 16 18 18 Rate Blood Pressure 126/88 128/95 114/73 O2 Sat by Pulse 96 98 100 Oximetry 03/10/19 19:32 Temperature 97.8 F Pulse Rate 65 Respiratory 18 Rate Blood Pressure 114/73 O2 Sat by Pulse 100 Oximetry Medical Decision Making - Medical Decision Making Patient is a 28-year-old female sitting with epigastric and right upper quadrant pain 1 month. She also complaining of right-sided chest pain. Lab work shows very slight leukocytosis of 11.8, rest of labs are normal. Urine is normal, hCG is negative. Patient's d-dimer was 0.85. I discussed these findings with the patient. She would feel more control if we did a CTA. CTA was obtained and shows no evidence of PE. I discussed with patient her symptoms could still be related to biliary colic. I suggested she continue to follow-up with Dr. Schmitt on as discussed. She was also requesting referral to a surgeon. Referral was given. She will be sent home with Toradol and Reglan as needed for symptoms. Return parameters were discussed with the patient and she verbalized understanding. - Lab Data Result diagrams: 03/10/19 15:55 03/10/19 15:55 Lab Results 03/10/19 03/10/19 03/10/19 Range/Units 15:55 15:55 15:55 WBC 11.8 H (3.8-10.6) k/uL RBC 5.07 (3.80-5.40) m/uL Hgb 14.4 (11.4-16.0) gm/dL Hct 41.6 (34.0-46.0) % MCV 82.0 (80.0-100.0) fL MCH 28.3 (25.0-35.0) pg MCHC 34.5 (31.0-37.0) g/dL RDW 14.4 (11.5-15.5) % Plt Count 302 (150-450) k/uL Neutrophils % 65 % Lymphocytes % 19 % Monocytes % 3 % Eosinophils % 11 % Basophils % 1 % Neutrophils # 7.7 (1.3-7.7) k/uL Lymphocytes # 2.2 (1.0-4.8) k/uL Monocytes # 0.4 (0-1.0) k/uL Eosinophils # 1.3 H (0-0.7) k/uL Basophils # 0.1 (0-0.2) k/uL D-Dimer 0.85 H (<0.60) mg/L FEU Sodium 140 (137-145) mmol/L Potassium 4.4 (3.5-5.1) mmol/L Chloride 103 (98-107) mmol/L Carbon Dioxide 26 (22-30) mmol/L Anion Gap 11 mmol/L BUN 13 (7-17) mg/dL Creatinine 0.73 (0.52-1.04) mg/dL Est GFR (CKD-EPI)AfAm >90 (>60 ml/min/1.73 sqM) Est GFR (CKD-EPI)NonAf >90 (>60 ml/min/1.73 sqM) Glucose 94 (74-99) mg/dL Calcium 9.5 (8.4-10.2) mg/dL Total Bilirubin 0.7 (0.2-1.3) mg/dL AST 25 (14-36) U/L ALT 30 (4-34) U/L Alkaline Phosphatase 122 (38-126) U/L Total Protein 7.6 (6.3-8.2) g/dL Albumin 4.5 (3.5-5.0) g/dL Amylase 40 (30-110) U/L Lipase 58 (23-300) U/L Urine Color Urine Appearance (Clear) Urine pH (5.0-8.0) Ur Specific [place] (1.001-1.035) Urine Protein (Negative) Urine Glucose (UA) (Negative) Urine Ketones (Negative) Urine Blood (Negative) Urine Nitrite (Negative) Urine Bilirubin (Negative) Urine Urobilinogen (<2.0) mg/dL Ur Leukocyte Esterase (Negative) Urine HCG, Qual (Not Detectd) 03/10/19 03/10/19 Range/Units 16:59 16:59 WBC (3.8-10.6) k/uL RBC (3.80-5.40) m/uL Hgb (11.4-16.0) gm/dL Hct (34.0-46.0) % MCV (80.0-100.0) fL MCH (25.0-35.0) pg MCHC (31.0-37.0) g/dL RDW (11.5-15.5) % Plt Count (150-450) k/uL Neutrophils % % Lymphocytes % % Monocytes % % Eosinophils % % Basophils % % Neutrophils # (1.3-7.7) k/uL Lymphocytes # (1.0-4.8) k/uL Monocytes # (0-1.0) k/uL Eosinophils # (0-0.7) k/uL Basophils # (0-0.2) k/uL D-Dimer (<0.60) mg/L FEU Sodium (137-145) mmol/L Potassium (3.5-5.1) mmol/L Chloride (98-107) mmol/L Carbon Dioxide (22-30) mmol/L Anion Gap mmol/L BUN (7-17) mg/dL Creatinine (0.52-1.04) mg/dL Est GFR (CKD-EPI)AfAm (>60 ml/min/1.73 sqM) Est GFR (CKD-EPI)NonAf (>60 ml/min/1.73 sqM) Glucose (74-99) mg/dL Calcium (8.4-10.2) mg/dL Total Bilirubin (0.2-1.3) mg/dL AST (14-36) U/L ALT (4-34) U/L Alkaline Phosphatase (38-126) U/L Total Protein (6.3-8.2) g/dL Albumin (3.5-5.0) g/dL Amylase (30-110) U/L Lipase (23-300) U/L Urine Color Yellow Urine Appearance Clear (Clear) Urine pH 5.5 (5.0-8.0) Ur Specific [place] 1.021 (1.001-1.035) Urine Protein Negative (Negative) Urine Glucose (UA) Negative (Negative) Urine Ketones Negative (Negative) Urine Blood Negative (Negative) Urine Nitrite Negative (Negative) Urine Bilirubin Negative (Negative) Urine Urobilinogen <2.0 (<2.0) mg/dL Ur Leukocyte Esterase Negative (Negative) Urine HCG, Qual Not Detected (Not Detectd) Disposition Clinical Impression: Biliary colic, Right upper quadrant abdominal pain Disposition: HOME SELF-CARE Condition: Stable Instructions (If sedation given, give patient instructions): Biliary Colic (ED) Additional Instructions: Please return to the Emergency Department if symptoms worsen or any other concerns. Follow-up with GI and/or surgery as discussed. Prescriptions: Metoclopramide [Reglan] 10 mg PO TID PRN #10 tab PRN Reason: GERD Ketorolac [Toradol] 10 mg PO Q8HR #10 tab Is patient prescribed a controlled substance at d/c from ED?: No Referrals: Ajit Fall MD [Primary Care Provider] - 1-2 days Nick Veras MD [Medical Doctor] - 1-2 days Leni Schmitt MD [STAFF PHYSICIAN] - 1-2 days
--- NOTE | 2019-03-10 19:04 | CT ---
EXAMINATION TYPE: CT angio chest DATE OF EXAM: 03/10/2019 COMPARISON: None HISTORY: SOB, RUQ pain, elevated d-dimer CT DLP: 474.5 mGycm Automated exposure control for dose reduction was used. CONTRAST: Performed with IV Contrast, patient injected with 80 mL of Isovue 370. There are 3-D post processed images. The lungs are clear of infiltrate. There are small bilateral pleural effusions. There is mild subsegm ental atelectasis at the posterior lung bases. Heart size is normal. There is no pericardial effusion . Thoracic aorta is intact. There is no mediastinal adenopathy. There are no hilar masses. There is normal contrast opacification of the pulmonary arteries. There are no filling defects. The bony thorax appears intact. IMPRESSION: Small pleural effusions. Subsegmental atelectasis at the lung bases. No evidence of pulmonary embolis m.
[2019-03-10 19:32] VITALS: BP 114/73; PULSE 65
== END 2019-03-10 19:32 | disposition home or self-care (01) ==
LOC: EC 15:26
DX: K80.50 Calculus of bile duct without cholangitis or cholecystitis without obstruction (principal); R07.89 Other chest pain; D72.829 Elevated white blood cell count, unspecified; E07.9 Disorder of thyroid, unspecified; D68.2 Hereditary deficiency of other clotting factors; Z79.890 Hormone replacement therapy; Z79.82 Long term (current) use of aspirin; Z88.0 Allergy status to penicillin
CPT/HCPCS: 36415; 85379; 80053; 82150; 83690; 85025; 81003; 81025; 71046; 71275; 99284; 96374; 96375; 96361 ×3; J2765; J1885; Q9967

== ENCOUNTER 2019-07-31 09:05 | Day surgery (SDC) | payer BC, OTHER ==
[2019-07-29 16:00] VITALS: BMI 30.4
[~2019-07-31 09:05] MED LIST: LACTATED RINGERS 1,000 ML IV SCH
[2019-07-31] MEDS ORDERED: LIDOCAINE 1% (10MG/ML) FOR IV START INTRADERMA ONE (09:34)
[2019-07-31 09:46] VITALS: RESP 16; TEMP 97.4
[2019-07-31] MEDS ORDERED: LIDOCAINE 1% INJ 10MG/ML (20 ML MDV) ONE (10:07)
[2019-07-31] MEDS ORDERED: PROPOFOL 10 MG/ML 20 ML VIAL IV ONE (10:07)
--- NOTE | 2019-07-31 10:23 | P.PCN ---
Date of Procedure: 07/31/19 Description of Procedure: BRIEF HISTORY: Patient is a 29-year-old, pleasant, female presenting for outpatient upper endoscopy for evaluation of reported abdominal pain. Stating she is having intermittent episodes of abdominal discomfort in the right upper quadrant in the epigastric region abdomen as well as associated flatulence and abdominal bloatedness extensive workup in the past including HIDA which was normal, ultrasound of the abdomen which was normal, computed tomography scan of abdomen and pelvis and CT angiography. PROCEDURE PERFORMED: Esophagogastroduodenoscopy with biopsy. PREOPERATIVE DIAGNOSIS: Right upper quadrant abdominal pain. ESTIMATED BLOOD LOSS: Minimal. IV sedation per anesthesia. PROCEDURE: After informed consent was obtained, the patient was brought into the endoscopy unit. IV sedation was administered by Anesthesia under continuous monitoring. Initially the Olympus GIF-190 video endoscope was inserted into the mouth. Esophagus intubated without any difficulty. It was gradually advanced into the stomach and duodenum and carefully examined. The bulb and the second part of the duodenum appeared normal, with biopsies taken to rule out celiac sprue. The scope at this time was withdrawn to the stomach, adequately insufflated with air, and upon careful examination, mucosa of the antrum, body, cardia and the fundus appeared normal, except for a mild punctate erythema in the antrum and body suggestive of mild gastritis with biopsies taken. The scope was then withdrawn into the esophagus. The GE junction was located at 38 cm from the incisors, with biopsies taken to rule out reflux esophagitis. The esophagus appeared normal. There were no erosions or ulcerations seen and the patient tolerated the procedure well. IMPRESSION: 1. Mild gastritis antrum and body, biopsied. 2. Biopsies of the duodenum and GE junction. RECOMMENDATIONS: The findings of this examination were discussed with the patient and her family. Okay to resume diet. Okay to resume medications. Would recommend follow-up in 2-3 weeks in the GI clinic for results of biopsies. Continue current medical management.
[2019-07-31 10:43] VITALS: BP 127/84; PULSE 69
== END 2019-07-31 10:59 | disposition home or self-care (01) ==
LOC: ORWHC2ENDO 09:05
PROVIDERS: ATTEND Internal Medicine
DX: K29.50 Unspecified chronic gastritis without bleeding (principal); K21.0 Gastro-esophageal reflux disease with esophagitis; D68.51 Activated protein C resistance; E07.9 Disorder of thyroid, unspecified; F41.9 Anxiety disorder, unspecified; D68.2 Hereditary deficiency of other clotting factors; Z88.0 Allergy status to penicillin; Z98.890 Other specified postprocedural states; Z79.890 Hormone replacement therapy; Z79.899 Other long term (current) drug therapy; Z80.49 Family history of malignant neoplasm of other genital organs; Z98.891 History of uterine scar from previous surgery
CPT/HCPCS: 81025; 88305; 43239; J2001; J2704

== ENCOUNTER → 2019-09-16 | Outpatient (CLI) | payer BC, OTHER ==
[2019-09-16 13:52] LABS: HCT 42.2 % (34.0-46.0); HGB 14.3 gm/dL (11.4-16.0); MCH 29.1 pg (25.0-35.0); MCHC 33.8 g/dL (31.0-37.0); MCV 85.9 fL (80.0-100.0); Mean Platelet Volume 6.3; Platelet Count 356 k/uL (150-450); RBC 4.91 m/uL (3.80-5.40); RDW 13.2 % (11.5-15.5); WBC 11.4 k/uL (3.8-10.6)
== END | disposition home or self-care (01) ==
LOC: LABPAT 13:10
PROVIDERS: ATTEND Surgery Plastic and Reconstructive Surgery
DX: Z01.818 Encounter for other preprocedural examination (principal); Z20.828 Contact with and (suspected) exposure to other viral communicable diseases
CPT/HCPCS: 85027

== ENCOUNTER → 2019-09-16 | Outpatient (CLI) | payer BC, OTHER | END | disposition home or self-care (01) | LOC: LABWHC1 13:31 | PROVIDERS: ATTEND Nurse Practitioner Family | DX: Z20.828 Contact with and (suspected) exposure to other viral communicable diseases (principal) | CPT/HCPCS: 36415; 86769 ==

== ENCOUNTER 2019-09-19 09:07 | Day surgery (SDC) | payer BC, OTHER ==
[2019-09-12 14:37] VITALS: BMI 30.4
--- NOTE | 2019-09-18 19:54 | P.GSHP ---
History of Present Illness H&P Date: 09/19/19 CHIEF COMPLAINT: Cholecystitis HISTORY OF PRESENT ILLNESS: The patient is a 29-year-old female who presents with history of epigastric including right upper quadrant abdominal pain. She underwent diagnostic studies for her gallbladder. Separately her clinical picture was consistent with cholecystitis. Now she presents for surgical intervention. PAST MEDICAL HISTORY: Please see list PAST SURGICAL HISTORY: Please see list MEDICATIONS: Please see list ALLERGIES: Please see list SOCIAL HISTORY: Please see list FAMILY HISTORY: Please see list REVIEW OF ORGAN SYSTEMS: CONSTITUTIONAL: No reports of fevers or chills. HEENT: Denies any troubles with the vision or hearing. ENDOCRINE: No reports of hypothyroidism. No diabetes. RESPIRATORY: No recent pneumonias. CARDIOVASCULAR: Denies chest pain or palpitations GI: No blood in stools or constipation. MUSCULOSKELETAL: Has occasional joint pain including back pain. NEURO: No seizure disorders or headaches. No recent stroke. PSYCH: No depression or suicidal ideation. GENITOURINARY: No active blood in urine. No urinary hesitancy. HEMATOLOGIC: No personal or family history of DVTs or pulmonary emboli. SKIN: No skin cancer. PHYSICAL EXAM: VITAL SIGNS: Afebrile vital signs stable GENERAL: Well-developed pleasant in no acute distress. HEENT: No scleral icterus. Extraocular movements grossly intact. Moist buccal mucosa. NECK: Supple without lymphadenopathy. CHEST: Unlabored respirations. Equal bilateral excursions. CARDIOVASCULAR: Regular rate regular rhythm rhythm. Distal 2+ pulses. ABDOMEN: Soft, nondistended. Tender along the epigastrium and right upper quadrant. MUSCULOSKELETAL: No clubbing, cyanosis, or edema. NEURO: Cranial nerves II to XII within normal limits. No focal or lateralizing signs. PSYCH: Alert and oriented to person, place and time. SKIN: Well-perfused good skin turgor. ASSESSMENT: 1. Epigastric and right upper quadrant abdominal pain 2. Chronic cholecystitis 3. Symptomatic gallstones. PLAN: 1. Will need a robotic cholecystectomy possible open. Benefits and risks were described. 2. Heparin for DVT prophylaxis 5000 units. 3. Antibiotic prophylaxis. Past Medical History Past Medical History: Blood Disorder, GERD/Reflux, Thyroid Disorder Additional Past Medical History / Comment(s): Factor V. gallbladder disorder History of Any Multi-Drug Resistant Organisms: None Reported Past Surgical History: Section Additional Past Surgical History / Comment(s): C-SEC X 2. egd Past Anesthesia/Blood Transfusion Reactions: No Reported Reaction Smoking Status: Former smoker - Past Family History Father Family Medical History: Cancer Additional Family Medical History / Comment(s): prostate cancer Mother Family Medical History: Cancer Additional Family Medical History / Comment(s): cervical cancer Medications and Allergies Home Medications Medication Instructions Recorded Confirmed Type Levothyroxine Sodium 125 mcg PO DAILY 11/29/18 09/12/19 History Omeprazole 20 mg PO DAILY 07/29/19 09/12/19 History Allergies Allergy/AdvReac Type Severity Reaction Status Date / Time amoxicillin Allergy Rash/Hives Verified 09/12/19 14:26 Penicillins Allergy Rash/Hives Verified 09/12/19 14:26
[~2019-09-19 09:07] MED LIST changes: +ACETAMINOPHEN TAB 500 MG TAB PO STA; +DEXAMETHASONE SOD PHOSPHATE 10 MG/ML 1 ML VIAL IV ONE; +GABAPENTIN 300 MG CAP PO STA; +HEPARIN SODIUM,PORCINE 5,000 UNIT/ML 1 ML VIAL SQ ONE; +HYDROmorphone 0.5 MG/0.5 ML SYRINGE IVP PRN; +LIDOCAINE 1% (10MG/ML) FOR IV START INTRADERMA PRN; +ONDANSETRON 4 MG/2 ML VIAL IVP ONE; +SCOPOLAMINE 1.5MG/72HR PATCH TRANSDERM ONE; +SCOPOLAMINE 1.5MG/72HR PATCH TRANSDERM STA
[2019-09-19 09:34] VITALS: RESP 16
[2019-09-19] MEDS ORDERED: ACETAMINOPHEN TAB 500 MG TAB ONE (09:45)
[2019-09-19] MEDS ORDERED: HEPARIN SODIUM,PORCINE 5,000 UNIT/ML 1 ML VIAL ONE (09:45)
[2019-09-19] MEDS ORDERED: ONDANSETRON 4 MG/2 ML VIAL ONE (09:45)
[2019-09-19 10:16] LABS: ALT 19 U/L (4-34); AST 20 U/L (14-36); African American GFR (CKD) >90 (>60 ml/min/1.73 sqM); Albumin 4.5 g/dL (3.5-5.0); Alkaline Phosphatase 104 U/L (38-126); Anion Gap 7 mmol/L; Blood Urea Nitrogen 15 mg/dL (7-17); Calcium 9.5 mg/dL (8.4-10.2); Carbon Dioxide 25 mmol/L (22-30); Chloride 108 mmol/L (98-107); Glucose 102 mg/dL (74-99); Non-African American GFR(CKD) >90 (>60 ml/min/1.73 sqM); Potassium 4.3 mmol/L (3.5-5.1); Sodium 140 mmol/L (137-145); Total Bilirubin 0.7 mg/dL (0.2-1.3); Total Protein 7.3 g/dL (6.3-8.2)
[2019-09-19 10:21] LABS: Basophils # (A) 0.1 k/uL (0-0.2); Basophils % (A) 1 %; Eosinophils # (A) 0.5 k/uL (0-0.7); Eosinophils % (A) 6 %; HCT 40.9 % (34.0-46.0); Lymphocytes # (A) 3.1 k/uL (1.0-4.8); Lymphocytes % (A) 32 %; MCHC 34.3 g/dL (31.0-37.0); MCV 84.7 fL (80.0-100.0); Mean Platelet Volume 6.4; Monocytes # (A) 0.5 k/uL (0-1.0); Monocytes % (A) 6 %; Neutrophils # (A) 5.2 k/uL (1.3-7.7); Neutrophils % (A) 54 %; Platelet Count 334 k/uL (150-450); RBC 4.83 m/uL (3.80-5.40); RDW 13.1 % (11.5-15.5); WBC 9.6 k/uL (3.8-10.6)
[2019-09-19] MEDS ORDERED: LIDOCAINE 1% INJ 10MG/ML (20 ML MDV) ONE (10:30)
[2019-09-19] MEDS ORDERED: HYDROmorphone (PF) 1 MG/ML ONE (10:30)
[2019-09-19] MEDS ORDERED: PROPOFOL 10 MG/ML 20 ML VIAL IV ONE (10:30)
[2019-09-19] MEDS ORDERED: NEOSTIGMINE 1 MG/ML 10 ML VIAL ONE (10:30)
[2019-09-19] MEDS ORDERED: ROCURONIUM 10 MG/ML (5 ML VIAL) IV ONE (10:30)
[2019-09-19] MEDS ORDERED: SUCCINYLCHOLINE CHLORIDE 100 MG/5 ML SYR IV ONE (10:30)
[2019-09-19] MEDS ORDERED: fentaNYL (PF) 50 MCG/ML 2 ML AMP ONE (10:30)
[2019-09-19] MEDS ORDERED: GLYCOPYRROLATE 0.2 MG/ML 2 ML VIAL ONE (10:30)
[2019-09-19] MEDS ORDERED: MIDAZOLAM 2 MG/2 ML VIAL ONE (10:30)
[2019-09-19] MEDS ORDERED: KETOROLAC 30 MG/ML 1 ML VIAL ONE (10:30)
[2019-09-19] MEDS: INDOCYANINE GREEN 25 MG VIAL IV STA ×2 (10:40→11:14)
[2019-09-19] MEDS ORDERED: LIDOCAINE 1%-EPI 1:100,000 20 ML VIAL SQ ONE (11:07)
[2019-09-19] MEDS ORDERED: LACTATED RINGERS 1,000 ML IV ONE ×2 (11:34)
[2019-09-19] MEDS ORDERED: KETOROLAC 15 MG/ML 1 ML VIAL IVP PRN (11:38)
--- NOTE | 2019-09-19 11:40 | P.OP ---
Date of Procedure: 09/19/19 Description of Procedure: SURGEON: FABIOAL SIDDIQUI MD PREOPERATIVE DIAGNOSES: 1. Chronic cholecystitis 2. Obesity due to excess calories, BMI 32.4 3. Gastroesophageal reflux disease POSTOPERATIVE DIAGNOSES: 1. Chronic cholecystitis 2. Obesity due to excess calories, BMI 32.4 3. Gastroesophageal reflux disease OPERATION: Robotic-assisted da Silvestre Xi laparoscopic cholecystectomy, multiport with FIREFLY ESTIMATED BLOOD LOSS: 5 mL. SPECIMENS REMOVED: Gallbladder. COMPLICATIONS: None. OPERATIVE FINDINGS: 1. Chronic cholecystitis INDICATIONS: The patient is a 29-year-old male who presents with epigastric right upper quadrant dull pain with gallbladder disorder. Surgical intervention with a laparoscopic cholecystectomy was described. Robotic assisted laparoscopic approach was described. Benefits and risks of the procedure including but not limited to bleeding, infection, injury to the biliary tree was described. Informed consent was obtained. DESCRIPTION OF PROCEDURE: Patient was brought to the operating room, placed in supine position. After general induction, the abdomen had been prepped and draped in standard sterile fashion. The robotic da Silvestre XI system was primed. After a timeout protocol was performed, the patient had been prepped and draped in standard sterile fashion. The patient was injected with indocyanine green. A 5 mm 0 degrees laparoscopic trocar entry was performed along the left upper quadrant. The abdomen insufflated to 15 mmHg pressure which was tolerated well. Diagnostic laparoscopy demonstrated no injury to bowel viscera or mesentery. The liver surface was unremarkable. Next, two 8 mm robotic ports were placed along the right upper abdomen. The camera 8-mm port was maintained along the epigastrium. Another 8 mm port was placed along the left upper abdominal wall after exchanging the 5 mm port. Please note that the ports were placed at least 10 to 15 cm away from the target anatomy of the gallbladder. The robot was docked along the left lateral abdomen. The patient was repositioned in reverse Trendelenburg position. Using a grasper for arm 3, a grasper for arm 4, including hook cautery for arm 1, the robotic system was docked and primed as described. Instruments were interchanged by the administration assistant including hook cautery, Bovie cautery and clip appliers. I had sat at the console. The gallbladder fundus was retracted over the dome of the liver. Initial attention was brought to the infundibulum including cystic lymph node. Initial dissection was performed over the cystic lymph node at the infundibulum using hook cautery. The infundibulum was retracted laterally to expose the cystic duct away from the common bile duct. The cystic duct including the cystic artery were dissected free from its surrounding tissue. FIREFLY was used to identify the cystic artery and cystic structures. A critical view of safety was obtained. Large PLASTIC clips were used throughout the entire case. Using a clip fur scraper, 2 clips were placed at the junction of the infundibulum and cystic duct. The cystic duct was divided between clips. Next, the cystic artery was similarly clipped and cauterized. Electro-Bovie cautery was used to remove the gallbladder from the hepatic fossa. Hemostasis was checked and found to be adequate. The robot was undocked. I re-scrubbed into the case. Using a 10 mm Endo Catch bag via the left upper quadrant incision, the specimen was removed from the abdominal cavity. All pneumoperitoneum instruments were evacuated from the abdominal cavity. The incisions were reapproximated using 4-0 Monocryl in an interrupted subcuticular fashion. Fascial defects were less than 8 mm in size. Please note along the trocar sites, local anesthetic was placed as a field block prior to insertion of all instruments. Liquid glue was applied to the skin. At the end of the procedure needle, sponge, and instrument count had been verified correct by the surgical device sales representative. The patient was transferred to postanesthesia care unit in stable condition. Intraoperative films were shared with the patient's family who were pleased with the level of care. Plan - Discharge Summary Discharge Rx Participant: Yes New Discharge Prescriptions: New Naproxen [Naprosyn] 250 mg PO TID PRN #30 tab PRN Reason: Pain Acetaminophen Tab [Tylenol Tab] 1,000 mg PO Q6HR PRN #30 tablet PRN Reason: Pain Continue Levothyroxine Sodium 125 mcg PO DAILY Omeprazole 20 mg PO DAILY Discharge Medication List Levothyroxine Sodium 125 mcg PO DAILY 11/29/18 [History] Omeprazole 20 mg PO DAILY 07/29/19 [History] Acetaminophen Tab [Tylenol Tab] 1,000 mg PO Q6HR PRN #30 tablet 09/19/19 [Rx] Naproxen [Naprosyn] 250 mg PO TID PRN #30 tab 09/19/19 [Rx] Follow up Appointment(s)/Referral(s): Fabiola Siddiqui MD [STAFF PHYSICIAN] - 09/25/19 Patient Instructions/Handouts: Your Baby (DC), and Your Diet (DC), Low Fat Diet (DC), Laparoscopic Cholecystectomy (DC) Activity/Diet/Wound Care/Special Instructions: PLEASE DISCARD BREAST MILK FOR 24 HRS FOLLOWING SURGERY No lifting over 10 pounds in 2 weeks until Oct 02. May shower. No bath tub soaks for two weeks until Oct 02. Diet as tolerated. No driving while on narcotics. Use Tylenol and ibuprofen/Aleve scheduled for the next 24-48 hours for best pain relief. Use ice along incisions for the today to prevent swelling. Discharge Disposition: HOME SELF-CARE
[2019-09-19] MEDS ORDERED: SIMETHICONE 80 MG CHEWABLE PO SCH (11:45)
[2019-09-19 11:48] VITALS: TEMP 96.8
[2019-09-19 13:22] VITALS: BP 116/52; PULSE 62
== END 2019-09-19 13:52 | disposition home or self-care (01) ==
LOC: OR 09:07
PROVIDERS: ATTEND Surgery Plastic and Reconstructive Surgery
DX: K81.1 Chronic cholecystitis (principal); E66.09 Other obesity due to excess calories; K21.9 Gastro-esophageal reflux disease without esophagitis; D68.2 Hereditary deficiency of other clotting factors; E07.9 Disorder of thyroid, unspecified; J45.909 Unspecified asthma, uncomplicated; Z68.32 Body mass index [BMI] 32.0-32.9, adult; Z88.0 Allergy status to penicillin; Z98.890 Other specified postprocedural states; Z87.891 Personal history of nicotine dependence; Z79.890 Hormone replacement therapy; Z79.899 Other long term (current) drug therapy; Z80.42 Family history of malignant neoplasm of prostate; Z80.49 Family history of malignant neoplasm of other genital organs
CPT/HCPCS: 47562; S2900; 80053; 81025; 85025; 88304

== ENCOUNTER 2020-06-30 17:07 | Emergency (ER) | payer BC, OTHER ==
[2020-06-30 17:14] VITALS: RESP 18
[2020-06-30] MEDS ORDERED: LORazepam 1 MG TAB PO STA (17:37)
[2020-06-30] MEDS ORDERED: SODIUM CHLORIDE 0.9% 1,000 ML IV STA (17:37)
[2020-06-30 17:59] LABS: Basophils # (A) 0.1 k/uL (0-0.2); Basophils % (A) 1 %; Eosinophils # (A) 0.6 k/uL (0-0.7); Eosinophils % (A) 6 %; HCT 42.1 % (34.0-46.0); HGB 14.3 gm/dL (11.4-16.0); Lymphocytes # (A) 2.9 k/uL (1.0-4.8); Lymphocytes % (A) 27 %; MCH 28.7 pg (25.0-35.0); MCV 84.3 fL (80.0-100.0); Mean Platelet Volume 6.2; Monocytes # (A) 0.4 k/uL (0-1.0); Monocytes % (A) 4 %; Neutrophils # (A) 6.5 k/uL (1.3-7.7); Neutrophils % (A) 61 %; Platelet Count 368 k/uL (150-450); RBC 4.99 m/uL (3.80-5.40); RDW 12.9 % (11.5-15.5); WBC 10.7 k/uL (3.8-10.6)
[2020-06-30 18:03] LABS: Appearance,Urine Clear (Clear); Bilirubin,Urine Negative (Negative); Blood,Urine Negative (Negative); Color,Urine Colorless; Glucose,Urine (UA) Negative (Negative); Ketones,Urine Negative (Negative); Leukocyte Esterase,Urine Negative (Negative); Nitrite,Urine Negative (Negative); PH, Urine 6.5 (5.0-8.0); Protein,Urine Negative (Negative); Specific Gravity,Urine 1.001 (1.001-1.035); Urobilinogen,Urine <2.0 mg/dL (<2.0)
[2020-06-30 18:08] LABS: ALT 24 U/L (4-34); AST 23 U/L (14-36); African American GFR (CKD) >90 (>60 ml/min/1.73 sqM); Albumin 4.7 g/dL (3.5-5.0); Alkaline Phosphatase 100 U/L (38-126); Anion Gap 8 mmol/L; Blood Urea Nitrogen 10 mg/dL (7-17); Calcium 9.7 mg/dL (8.4-10.2); Carbon Dioxide 27 mmol/L (22-30); Chloride 102 mmol/L (98-107); Glucose 125 mg/dL (74-99); Non-African American GFR(CKD) >90 (>60 ml/min/1.73 sqM); Sodium 137 mmol/L (137-145); Total Bilirubin 0.4 mg/dL (0.2-1.3); Total Protein 7.5 g/dL (6.3-8.2)
[2020-06-30 18:43] VITALS: PULSE 74; TEMP 97.6
--- NOTE | 2020-06-30 19:23 | ED ---
General Adult HPI - General Chief complaint: Neuro Symptoms/Deficit Stated complaint: Lightheaded Time Seen by Provider: 06/30/20 17:25 Source: patient, RN notes reviewed Mode of arrival: ambulatory Limitations: no limitations - History of Present Illness Initial comments: 30-year-old anxious white female presents to the emergency room, alert and oriented 4 complaining of sudden onset of feeling cold, with facial tingling, lightheadedness, bilateral lower extremity tingling that started at 1530 today while getting her hair done. Patient states this has never happened to her before states she does have a history of factor 5, hypothyroidism and GERD. she recently was prescribed cabergoline 2 weeks ago for cessation by her airborne operations Dr Pina and received her second dose on Sunday. Patient denies any new medications. Takes levothyroxine 125 g, trazodone to help her sleep as needed. Patient denies fever, nausea, vomiting, or diarrhea. Patient denies any sick contacts. -: hour(s) (Started at 1530) Location: face (Tingling around mouth and feet), lower extremity Radiation: non-radiation Severity scale (1-10): 0 Quality: constant Consistency: constant Improves with: none Worsens with: none Associated Symptoms: other (Lightheaded) Treatments Prior to Arrival: none - Related Data Home Medications Medication Instructions Recorded Confirmed Levothyroxine Sodium 125 mcg PO DAILY 11/29/18 09/12/19 Omeprazole 20 mg PO DAILY 07/29/19 09/12/19 Previous Rx's Medication Instructions Recorded Acetaminophen Tab [Tylenol Tab] 1,000 mg PO Q6HR PRN #30 tablet 09/19/19 Naproxen [Naprosyn] 250 mg PO TID PRN #30 tab 09/19/19 Allergies Allergy/AdvReac Type Severity Reaction Status Date / Time amoxicillin Allergy Rash/Hives Verified 09/12/19 14:26 Penicillins Allergy Rash/Hives Verified 09/12/19 14:26 Patient : No Review of Systems ROS Statement: Those systems with pertinent positive or pertinent negative responses have been documented in the HPI. ROS Other: All systems not noted in ROS Statement are negative. Past Medical History Past Medical History: Blood Disorder, GERD/Reflux, Thyroid Disorder Additional Past Medical History / Comment(s): Factor V. gallbladder disorder History of Any Multi-Drug Resistant Organisms: None Reported Past Surgical History: Section Additional Past Surgical History / Comment(s): C-SEC X 2. egd Past Anesthesia/Blood Transfusion Reactions: No Reported Reaction Past Psychological History: Anxiety Smoking Status: Former smoker Past Alcohol Use History: None Reported Past Drug Use History: None Reported - Past Family History Father Family Medical History: Cancer Additional Family Medical History / Comment(s): prostate cancer Mother Family Medical History: Cancer Additional Family Medical History / Comment(s): cervical cancer General Exam Limitations: no limitations General appearance: alert, in no apparent distress, anxious Head exam: Present: atraumatic, normocephalic, normal inspection Eye exam: Present: normal appearance, PERRL, EOMI. Absent: scleral icterus, conjunctival injection, periorbital swelling ENT exam: Present: normal exam, normal oropharynx, mucous membranes moist Neck exam: Present: normal inspection, full ROM. Absent: tenderness, meningismus, lymphadenopathy, thyromegaly Respiratory exam: Present: normal lung sounds bilaterally. Absent: respiratory distress, wheezes, rales, rhonchi, stridor Cardiovascular Exam: Present: regular rate, normal rhythm, normal heart sounds. Absent: systolic murmur, diastolic murmur, rubs, gallop, clicks, JVD GI/Abdominal exam: Present: soft, normal bowel sounds. Absent: distended, tenderness, guarding, rebound, rigid Extremities exam: Present: normal inspection, full ROM, normal capillary refill. Absent: tenderness, pedal edema, joint swelling, calf tenderness Back exam: Present: normal inspection, full ROM. Absent: tenderness, CVA tenderness (R), CVA tenderness (L), muscle spasm, paraspinal tenderness, vertebral tenderness Neurological exam: Present: alert, oriented X3, CN II-XII intact, normal gait. Absent: motor sensory deficit Psychiatric exam: Present: anxious Skin exam: Present: warm, dry, intact, normal color. Absent: rash, cyanosis, diaphoretic, erythema, petechiae, pallor Course Vital Signs 06/30/20 06/30/20 06/30/20 17:11 18:42 19:37 Temperature 97.5 F L 97.6 F Pulse Rate 88 74 Respiratory 18 18 18 Rate Blood Pressure 137/91 115/78 115/83 O2 Sat by Pulse 100 98 Oximetry Medical Decision Making - Medical Decision Making Glucose level is 125, all labs are within normal limits, UA is negative for infection or dehydration or no ketones. Patient has no focal neurological deficits at discharge, states that the circumoral paresthesias have resolved and no longer has any lightheadedness. This is possibly a side effect of her new medication cabergoline be directed to follow up with her airborne operations. This could also be an anxiety reaction as patient did have relief with Ativan. Patient family member agreeable to being discharged home and following up next week returning if worsening symptoms including headache, fever, shortness of breath or chest pain. - Lab Data Result diagrams: 06/30/20 17:48 06/30/20 17:48 Lab Results 06/30/20 06/30/20 06/30/20 Range/Units 17:48 17:48 17:48 WBC 10.7 H (3.8-10.6) k/uL RBC 4.99 (3.80-5.40) m/uL Hgb 14.3 (11.4-16.0) gm/dL Hct 42.1 (34.0-46.0) % MCV 84.3 (80.0-100.0) fL MCH 28.7 (25.0-35.0) pg MCHC 34.0 (31.0-37.0) g/dL RDW 12.9 (11.5-15.5) % Plt Count 368 (150-450) k/uL MPV 6.2 Neutrophils % 61 % Lymphocytes % 27 % Monocytes % 4 % Eosinophils % 6 % Basophils % 1 % Neutrophils # 6.5 (1.3-7.7) k/uL Lymphocytes # 2.9 (1.0-4.8) k/uL Monocytes # 0.4 (0-1.0) k/uL Eosinophils # 0.6 (0-0.7) k/uL Basophils # 0.1 (0-0.2) k/uL Sodium 137 (137-145) mmol/L Potassium 4.0 (3.5-5.1) mmol/L Chloride 102 (98-107) mmol/L Carbon Dioxide 27 (22-30) mmol/L Anion Gap 8 mmol/L BUN 10 (7-17) mg/dL Creatinine 0.58 (0.52-1.04) mg/dL Est GFR (CKD-EPI)AfAm >90 (>60 ml/min/1.73 sqM) Est GFR (CKD-EPI)NonAf >90 (>60 ml/min/1.73 sqM) Glucose 125 H (74-99) mg/dL Calcium 9.7 (8.4-10.2) mg/dL Total Bilirubin 0.4 (0.2-1.3) mg/dL AST 23 (14-36) U/L ALT 24 (4-34) U/L Alkaline Phosphatase 100 (38-126) U/L Total Protein 7.5 (6.3-8.2) g/dL Albumin 4.7 (3.5-5.0) g/dL TSH 1.410 (0.465-4.680) mIU/L Urine Color Colorless Urine Appearance Clear (Clear) Urine pH 6.5 (5.0-8.0) Ur Specific [place] 1.001 (1.001-1.035) Urine Protein Negative (Negative) Urine Glucose (UA) Negative (Negative) Urine Ketones Negative (Negative) Urine Blood Negative (Negative) Urine Nitrite Negative (Negative) Urine Bilirubin Negative (Negative) Urine Urobilinogen <2.0 (<2.0) mg/dL Ur Leukocyte Esterase Negative (Negative) Disposition Clinical Impression: Complaint of paresthesia Disposition: HOME SELF-CARE Condition: Good Additional Instructions: Follow-up with your airborne operations and primary care doctor this week. return if increasing numbness tingling or severe headache. Is patient prescribed a controlled substance at d/c from ED?: No Referrals: Ines Arndt MD [Primary Care Provider] - 1-2 days Theron Pina MD [Medical Doctor] - 1-2 days Time of Disposition: 19:22
[2020-06-30 19:38] VITALS: BP 115/83
== END 2020-06-30 19:38 | disposition home or self-care (01) ==
LOC: EC 17:07
DX: R20.2 Paresthesia of skin (principal); E03.9 Hypothyroidism, unspecified; F17.200 Nicotine dependence, unspecified, uncomplicated; K21.9 Gastro-esophageal reflux disease without esophagitis
CPT/HCPCS: 36415; 80053; 81003; 84443; 85025; 99284

== ENCOUNTER 2021-08-17 17:37 | Emergency (ER) | payer BC ==
[2021-08-17 17:42] VITALS: PULSE 95; RESP 16; TEMP 97.8
[2021-08-17 17:44] VITALS: BP 114/70
[2021-08-17] MEDS ORDERED: SODIUM CHLORIDE 0.9% 1,000 ML IV STA (19:21)
--- NOTE | 2021-08-17 19:27 | ED ---
Abdominal Pain HPI - General Chief Complaint: Abdominal Pain Stated Complaint: Abd pain Time Seen by Provider: 08/17/21 19:06 Source: patient, RN notes reviewed Mode of arrival: ambulatory Limitations: no limitations - History of Present Illness Initial Comments: This is a pleasant 32-year-old female who presents to the emergency department complaining of right-sided abdominal pain which is bothering her for about 1 week. It does radiate toward the back at times. Patient states she sat down to eat today and developed pain in the right abdomen again. Patient states the pain was sharp and unrelenting. Patient does have some baseline pain remaining. Patient previously has had her gallbladder removed. Patient denies any chest pain or shortness of breath. No vaginal discharge or vaginal bleeding. She does not believe she is . Due for her menses in 2 days. No headache, no fever or chills, no changes in vision or hearing, no sore throat or difficulty with speech, no neck pain, no chest pain or shortness of breath, , no nausea or vomiting, no changes in urination or bowel movements, no numbness or tingling, no extremity pain, no skin rashes or lesions. Patient is a5 Complaint: abdominal pain - Related Data Home Medications Medication Instructions Recorded Confirmed FLUoxetine HCL [PROzac] 40 mg PO HS 08/17/21 08/17/21 LORazepam [Ativan] 1 mg PO BID PRN 08/17/21 08/17/21 buPROPion [Wellbutrin] 75 mg PO BID 08/17/21 08/17/21 Previous Rx's Medication Instructions Recorded Acetaminophen Tab [Tylenol Tab] 1,000 mg PO Q6HR PRN #30 tablet 09/19/19 Allergies Allergy/AdvReac Type Severity Reaction Status Date / Time amoxicillin Allergy Rash/Hives Verified 08/17/21 20:58 Penicillins Allergy Unknown Verified 08/17/21 20:58 Childhood Review of Systems ROS Statement: Those systems with pertinent positive or pertinent negative responses have been documented in the HPI. ROS Other: All systems not noted in ROS Statement are negative. 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 egd Past Anesthesia/Blood Transfusion Reactions: No Reported Reaction Past Psychological History: Anxiety Smoking Status: Former smoker Past Alcohol Use History: None Reported Past Drug Use History: None Reported - Past Family History Father Family Medical History: Cancer Additional Family Medical History / Comment(s): prostate cancer Mother Family Medical History: Cancer Additional Family Medical History / Comment(s): cervical cancer General Exam - General Exam Comments Initial Comments: Patient some distress secondary to abdominal/pelvic pain. Patient does not appear to be ill or toxic. Adequately hydrated. No mottling, capillary refill less than 2 seconds Limitations: no limitations General appearance: alert, in no apparent distress, in distress Head exam: Present: atraumatic, normocephalic, normal inspection Eye exam: Present: normal appearance, PERRL, EOMI. Absent: scleral icterus, conjunctival injection, periorbital swelling ENT exam: Present: normal exam, mucous membranes moist Neck exam: Present: normal inspection. Absent: tenderness, meningismus, lymphadenopathy Respiratory exam: Present: normal lung sounds bilaterally. Absent: respiratory distress, wheezes, rales, rhonchi, stridor Cardiovascular Exam: Present: regular rate, normal rhythm, normal heart sounds. Absent: systolic murmur, diastolic murmur, rubs, gallop, clicks GI/Abdominal exam: Present: soft, tenderness (Right lower quadrant and right pelvic area), normal bowel sounds. Absent: distended, guarding (This is mild tenderness with no guarding or rebound.), rebound, rigid Extremities exam: Present: normal inspection, full ROM, normal capillary refill. Absent: tenderness, pedal edema, joint swelling, calf tenderness Back exam: Present: normal inspection Neurological exam: Present: alert, oriented X3, CN II-XII intact Psychiatric exam: Present: normal affect, normal mood Skin exam: Present: warm, dry, intact, normal color. Absent: rash Course Vital Signs 08/17/21 08/17/21 17:40 17:43 Temperature 97.8 F Pulse Rate 95 Respiratory 16 Rate Blood Pressure 114/70 O2 Sat by Pulse 97 Oximetry - Reevaluation(s) Reevaluation #1: 08/17/21 22:03 Medical record is reviewed Beta hCG is 21,029, potassium 5.7, suspect this is hemolyzed. Sodium slightly low at 134., Repeat abdominal exam does reveal some mild tenderness in the right abdomen. Patient is informed of results and questions answered Patient in no distress Reevaluation #2: 08/17/21 23:01 Medical record is reviewed Symptoms are improved here in the emergency department Patient is informed of results and questions answered Patient in no distress Medical Decision Making - Medical Decision Making Differential diagnosis is vast for this patient. Patient has right-sided ab dominal pain. Given the presentation think is unlikely to be appendicitis. However or ovarian pathology is possible. Ectopic possible. Ovarian cyst possible. Less likely ovarian torsion as the patient has been in pain for one week. Renal stone also possible. Patient is afebrile. This makes this less likely infectious pathology. Patient does states she was treated for urinary tract infection one week ago and finished antibiotics. This does raise a suspicion of possible abnormal urinalysis and renal stone. Patient may need computed tomography scan. We'll start with a pelvic ultrasound to take a look at the ovaries. Plan for reevaluation Patient presents with early , positive hCG and what appears to be a gestational sac measuring 3 weeks 5 days. No evidence of pole or cardiac activity at this time. There was no ultrasonic evidence of ectopic . Given the patient's symptomology, appendicitis or other etiologies are not ruled out. Did discuss the possibility of ectopic despite the ultrasound results. Discussed the possibility of appendicitis. We'll have the patient follow-up tomorrow for reevaluation. Offered admission to the patient. Patient feels well enough to go home and states she has an appointment with her doctor on Sunday anyway.Patient electing to be discharged. Patient lucid and able to make her own medical decisions. Alert and oriented 4. Patient will be discharged with close outpatient follow-up or follow-up here in the ER. Shared decision-making. Treatment plan discussed in detail. Follow-up and return parameters discussed in detail. All questions answered. Patient was told to return to the ER for any signs or symptoms worsen. Told to return immediately if any other problems arise. All questions answered. Treatment plan discussed. Patient in agreement Every effort has been made to ensure accuracy of this dictation. However, due to the limitations of electronic medical records and dictation devices, errors in charting still occur. An, short-term follow-up with repeat abdominal examination and CBC. Patient was told to come back here tomorrow if any symptoms worsen or fever develops. The case was discussed in detail with ED attending physician. Presentation, findings, treatment plan discussed in detail. Hone Operator Dr. Moore - Lab Data Result diagrams: 08/17/21 20:18 08/17/21 21:51 Lab Results 08/17/21 08/17/21 08/17/21 Range/Units 19:28 19:28 20:18 WBC 17.0 H (3.8-10.6) k/uL RBC 4.53 (3.80-5.40) m/uL Hgb 12.9 (11.4-16.0) gm/dL Hct 39.1 (34.0-46.0) % MCV 86.4 (80.0-100.0) fL MCH 28.4 (25.0-35.0) pg MCHC 32.9 (31.0-37.0) g/dL RDW 13.6 (11.5-15.5) % Plt Count 337 (150-450) k/uL MPV 6.7 Neutrophils % 82 % Lymphocytes % 12 % Monocytes % 3 % Eosinophils % 2 % Basophils % 0 % Neutrophils # 13.8 H (1.3-7.7) k/uL Lymphocytes # 2.0 (1.0-4.8) k/uL Monocytes # 0.6 (0-1.0) k/uL Eosinophils # 0.4 (0-0.7) k/uL Basophils # 0.1 (0-0.2) k/uL PT (9.0-12.0) sec INR (<1.2) APTT (22.0-30.0) sec Sodium (137-145) mmol/L Potassium (3.5-5.1) mmol/L Chloride (98-107) mmol/L Carbon Dioxide (22-30) mmol/L Anion Gap mmol/L BUN (7-17) mg/dL Creatinine (0.52-1.04) mg/dL Est GFR (CKD-EPI)AfAm (>60 ml/min/1.73 sqM) Est GFR (CKD-EPI)NonAf (>60 ml/min/1.73 sqM) Glucose (74-99) mg/dL Calcium (8.4-10.2) mg/dL Total Bilirubin (0.2-1.3) mg/dL AST (14-36) U/L ALT (4-34) U/L Alkaline Phosphatase (38-126) U/L Total Protein (6.3-8.2) g/dL Albumin (3.5-5.0) g/dL Lipase (23-300) U/L HCG, Quant mIU/mL Urine Color Yellow Urine Appearance Clear (Clear) Urine pH 5.5 (5.0-8.0) Ur Specific Marion 1.023 (1.001-1.035) Urine Protein 1+ H (Negative) Urine Glucose (UA) Negative (Negative) Urine Ketones Negative (Negative) Urine Blood Negative (Negative) Urine Nitrite Negative (Negative) Urine Bilirubin Negative (Negative) Urine Urobilinogen <2.0 (<2.0) mg/dL Ur Leukocyte Esterase Negative (Negative) Urine RBC 1 (0-5) /hpf Urine WBC 1 (0-5) /hpf Ur Squamous Epith Cells <1 (0-4) /hpf Urine Bacteria Rare H (None) /hpf Hyaline Casts 11 H (0-2) /lpf Urine Mucus Few H (None) /hpf Urine HCG, Qual Detected (Not Detectd) 08/17/21 08/17/21 08/17/21 Range/Units 20:18 20:18 21:51 WBC (3.8-10.6) k/uL RBC (3.80-5.40) m/uL Hgb (11.4-16.0) gm/dL Hct (34.0-46.0) % MCV (80.0-100.0) fL MCH (25.0-35.0) pg MCHC (31.0-37.0) g/dL RDW (11.5-15.5) % Plt Count (150-450) k/uL MPV Neutrophils % % Lymphocytes % % Monocytes % % Eosinophils % % Basophils % % Neutrophils # (1.3-7.7) k/uL Lymphocytes # (1.0-4.8) k/uL Monocytes # (0-1.0) k/uL Eosinophils # (0-0.7) k/uL Basophils # (0-0.2) k/uL PT 9.6 (9.0-12.0) sec INR 0.9 (<1.2) APTT 21.4 L (22.0-30.0) sec Sodium 134 L (137-145) mmol/L Potassium 5.7 H 4.2 (3.5-5.1) mmol/L Chloride 106 (98-107) mmol/L Carbon Dioxide 20 L (22-30) mmol/L Anion Gap 8 mmol/L BUN 11 (7-17) mg/dL Creatinine 0.60 (0.52-1.04) mg/dL Est GFR (CKD-EPI)AfAm >90 (>60 ml/min/1.73 sqM) Est GFR (CKD-EPI)NonAf >90 (>60 ml/min/1.73 sqM) Glucose 119 H (74-99) mg/dL Calcium 9.2 (8.4-10.2) mg/dL Total Bilirubin 1.0 (0.2-1.3) mg/dL AST 53 H (14-36) U/L ALT 23 (4-34) U/L Alkaline Phosphatase 73 (38-126) U/L Total Protein 8.0 (6.3-8.2) g/dL Albumin 4.6 (3.5-5.0) g/dL Lipase 129 (23-300) U/L HCG, Quant 05159.1 mIU/mL Urine Color Urine Appearance (Clear) Urine pH (5.0-8.0) Ur Specific Marion (1.001-1.035) Urine Protein (Negative) Urine Glucose (UA) (Negative) Urine Ketones (Negative) Urine Blood (Negative) Urine Nitrite (Negative) Urine Bilirubin (Negative) Urine Urobilinogen (<2.0) mg/dL Ur Leukocyte Esterase (Negative) Urine RBC (0-5) /hpf Urine WBC (0-5) /hpf Ur Squamous Epith Cells (0-4) /hpf Urine Bacteria (None) /hpf Hyaline Casts (0-2) /lpf Urine Mucus (None) /hpf Urine HCG, Qual (Not Detectd) Disposition Clinical Impression: Abdominal pain, Early stage of Disposition: HOME SELF-CARE Condition: Good Instructions (If sedation given, give patient instructions): Abdominal Pain (ED) Additional Instructions: Return to the ER immediately if fever develops, pain increases, any other problems arise. Keep her appointment with your regular doctor on Sunday. Return tomorrow if your symptoms have not improved. Call your [facility] [employer] physician for follow-up. Call at 8 AM to set that appointment up. Have a repeat blood prexy test done on Sunday before the appointment with your regular doctor. We will also recheck a CBC. Follow-up with your regular physician as directed. Return to the ER immediately if any symptoms worsen, new symptoms arise, or any other problems develop. Is patient prescribed a controlled substance at d/c from ED?: No Referrals: Nahum Cast DO [Primary Care Provider] - 1-2 days Brian Yañez MD [STAFF PHYSICIAN] - 1-2 days Time of Disposition: 23:00
[2021-08-17 19:50] LABS: Appearance,Urine Clear (Clear); Bacteria,Urine Rare /hpf; Bilirubin,Urine Negative (Negative); Blood,Urine Negative (Negative); Color,Urine Yellow; Glucose,Urine (UA) Negative (Negative); Hyaline Casts,Urine 11 /lpf (0-2); Ketones,Urine Negative (Negative); Leukocyte Esterase,Urine Negative (Negative); Mucus,Urine Few /hpf; Nitrite,Urine Negative (Negative); PH, Urine 5.5 (5.0-8.0); Protein,Urine 1+ (Negative); RBC,Urine 1 /hpf (0-5); Specific Gravity,Urine 1.023 (1.001-1.035); Squamous Epithelial Cell,Urine <1 /hpf (0-4); Urobilinogen,Urine <2.0 mg/dL (<2.0); WBC,Urine 1 /hpf (0-5)
[2021-08-17] MEDS ORDERED: ONDANSETRON 4 MG/2 ML VIAL IVP STA (19:53)
[2021-08-17] MEDS ORDERED: MORPHINE SULFATE 4 MG/ML SYRINGE IV STA (19:53)
[2021-08-17 20:33] LABS: Basophils # (A) 0.1 k/uL (0-0.2); Basophils % (A) 0 %; Eosinophils # (A) 0.4 k/uL (0-0.7); Eosinophils % (A) 2 %; HCT 39.1 % (34.0-46.0); HGB 12.9 gm/dL (11.4-16.0); Lymphocytes % (A) 12 %; MCH 28.4 pg (25.0-35.0); MCHC 32.9 g/dL (31.0-37.0); MCV 86.4 fL (80.0-100.0); Mean Platelet Volume 6.7; Monocytes # (A) 0.6 k/uL (0-1.0); Monocytes % (A) 3 %; Neutrophils # (A) 13.8 k/uL (1.3-7.7); Neutrophils % (A) 82 %; Platelet Count 337 k/uL (150-450); RBC 4.53 m/uL (3.80-5.40); RDW 13.6 % (11.5-15.5)
[2021-08-17 20:38] LABS: ALT 23 U/L (4-34); AST 53 U/L (14-36); African American GFR (CKD) >90 (>60 ml/min/1.73 sqM); Albumin 4.6 g/dL (3.5-5.0); Alkaline Phosphatase 73 U/L (38-126); Anion Gap 8 mmol/L; Blood Urea Nitrogen 11 mg/dL (7-17); Calcium 9.2 mg/dL (8.4-10.2); Carbon Dioxide 20 mmol/L (22-30); Chloride 106 mmol/L (98-107); Glucose 119 mg/dL (74-99); Lipase 129 U/L (23-300); Non-African American GFR(CKD) >90 (>60 ml/min/1.73 sqM); Potassium 5.7 mmol/L (3.5-5.1); Sodium 134 mmol/L (137-145)
[2021-08-17 20:46] LABS: INR 0.9 (<1.2); Prothrombin Time 9.6 sec (9.0-12.0)
[2021-08-17 20:51] LABS: Partial Thromboplastin Time 21.4 sec (22.0-30.0)
--- NOTE | 2021-08-17 21:22 | US ---
EXAMINATION TYPE: Transabdominal DATE OF EXAM: 08/17/2021 8:58 PM COMPARISON: NONE CLINICAL HISTORY: Right pelvic pain, positive hCG. Pelvic pain, 2 prior c-sections. EXAM PERFORMED: Transvaginal (TV) and Transabdominal (TA) EXAM MEASUREMENTS: GESTATIONAL AGE / DATING Physician Established: Not yet established Dates by LMP: (3 weeks/5 days) EDC: 04/28/22 Dates by First Scan: No previous this is first scan Dates by Current Scan for: No pole seen at this time MATERNAL ANATOMY Uterus: 10.3 x 5.1 x 6.3cm Right Ovary: 4.7 x 2.6 x 4.5cm Left Ovary: 4.9 x 2.8 x 3.5cm, cystic areas noted Post CDS / Adnexa: small amount of free fluid Presence of free fluid: yes Presence of corpus luteal cyst: complex area right ovary = 2.3 x 2.0 x 2.8 cm GESTATION / SURVEY Yolk Sac (normal less than 6mm): 0.3 cm IUP: No pole seen at this time Date of LMP: 07/22/21 Beta HcG (if available): Not available at this time IMPRESSION: Small anechoic intrauterine cystic structure without evidence for yolk sac or pole at this time . This is thought to represent an early gestational sac with a positive beta hCG, however abnormal in trauterine cannot be ruled out based on this exam alone. Follow-up with pelvic ultrasound i n 7-10 days and serial beta-hCG studies are recommended to en sure further development of the fetus.
[2021-08-17 21:52] LABS: HCG,Quantitative Serum 21029.1 mIU/mL
== END 2021-08-17 23:20 | disposition home or self-care (01) ==
LOC: EC 17:37
DX: O26.891 Other specified pregnancy related conditions, first trimester (principal); R10.9 Unspecified abdominal pain; Z3A.01 Less than 8 weeks gestation of pregnancy; Z87.891 Personal history of nicotine dependence
CPT/HCPCS: 36415; 80053; 83690; 84132; 85025; 85610; 85730; 81001; 81025; 84702; 76801; 76817; 99284; 96374 ×2; 96361; J2270; J2405

== ENCOUNTER → 2021-08-18 | Outpatient (CLI) | payer BC ==
[2021-08-19 01:09] LABS: HCT 38.3 % (37.2-46.3); MCH 28.2 pg (27.0-32.0); MCHC 31.3 g/dL (32.0-37.0); MCV 89.9 fL (80.0-97.0); Mean Platelet Volume 9.4 fL (9.5-12.2); NRBC Per 100 WBC 0 /100 WBCS (0.0-0.0); Platelet Count 331 X 10*3/uL (140-440); RBC 4.26 X 10*6/uL (4.10-5.20); RDW 13.4 % (11.5-14.5); WBC 12.47 X 10*3/uL (4.50-10.00)
== END | disposition home or self-care (01) ==
LOC: LABWHC1 15:24
PROVIDERS: ATTEND Physician Assistant
DX: R10.9 Unspecified abdominal pain (principal)
CPT/HCPCS: 36415; 84702; 85027

== ENCOUNTER → 2021-08-22 | Outpatient (CLI) | payer BC ==
[2021-08-22 10:54] LABS: Basophils # (A) 0.06 X 10*3/uL (0.00-0.10); Basophils % (A) 0.5 %; Eosinophils % (A) 2.7 %; HCT 39.6 % (37.2-46.3); Immature Grans, Automated 0.3 %; Lymphocytes # (A) 2.34 X 10*3/uL (0.90-5.00); Lymphocytes % (A) 21.2 %; MCH 28.2 pg (27.0-32.0); MCHC 32.8 g/dL (32.0-37.0); MCV 85.9 fL (80.0-97.0); Mean Platelet Volume 9.1 fL (9.5-12.2); Monocytes # (A) 0.61 X 10*3/uL (0.20-1.00); Monocytes % (A) 5.5 %; NRBC Per 100 WBC 0 /100 WBCS (0.0-0.0); Neutrophils # (A) 7.72 X 10*3/uL (1.80-7.70); Neutrophils % (A) 69.8 %; Platelet Count 353 X 10*3/uL (140-440); RBC 4.61 X 10*6/uL (4.10-5.20); RDW 13.2 % (11.5-14.5); WBC 11.06 X 10*3/uL (4.50-10.00)
== END | disposition home or self-care (01) ==
LOC: LABWHC1 07:08
PROVIDERS: ATTEND Family Medicine
DX: Z34.90 Encounter for supervision of normal pregnancy, unspecified, unspecified trimester (principal); D72.829 Elevated white blood cell count, unspecified; Z3A.00 Weeks of gestation of pregnancy not specified
CPT/HCPCS: 36415; 84702; 85025

== ENCOUNTER → 2021-08-25 | Outpatient (CLI) | payer BC ==
--- NOTE | 2021-08-25 11:50 | US ---
EXAMINATION TYPE: Transabdominal DATE OF EXAM: 08/25/2021 11:22 AM COMPARISON: NONE CLINICAL HISTORY: Z34.90 SUPERVISION OF NORMAL . Supervision of normal , positive H CG, Hx of miscarriages, 2 c-sections EXAM PERFORMED: Transvaginal (TV) and Transabdominal (TA) EXAM MEASUREMENTS: GESTATIONAL AGE / DATING Physician Established: Not yet established Dates by LMP: ( 4 weeks/ 4 days) EDC: 04/30/2022 Dates by First Scan: No pole seen on first exam Dates by Current Scan for: No pole seen on today's exam MATERNAL ANATOMY Uterus: 12.9 x 5.2 x 8.5 cm Right Ovary: 3.3 x 1.7 x 2.1 cm seen TV only, very limited Left Ovary: 4.1 x 2.4 x 3.8 cm, follicles seen largest tanisha. 1.9 x 2.1 x 1.7 cm Post CDS / Adnexa: No fluid or mass. Presence of free fluid: No Presence of corpus luteal cyst: Rt Ovary very limited Presence of subchorionic bleed: No GESTATION / SURVEY MSD: 2.4 x 1.5 x 2.2 cm Yolk Sac (normal less than 6mm): 1.4mm IUP: No pole seen on today's exam Date of LMP: 07/24/2021 Beta HcG (if available): Not available at this time IMPRESSION: Intrauterine gestational sac with yolk sac identified. No pole or heart tones are identif ied at this time likely due to early gestational age. Recommend follow-up with pelvic ultrasound and serial beta hCG to ensure further development of the fetus.
== END | disposition home or self-care (01) ==
LOC: RADUSWWP 10:18
PROVIDERS: ATTEND Family Medicine
DX: Z34.91 Encounter for supervision of normal pregnancy, unspecified, first trimester (principal); Z3A.01 Less than 8 weeks gestation of pregnancy
CPT/HCPCS: 76801

== ENCOUNTER → 2021-08-27 | Outpatient (CLI) | payer BC | END | disposition home or self-care (01) | LOC: LABWHC1 08:17 | PROVIDERS: ATTEND Obstetrics & Gynecology Obstetrics | DX: O20.0 Threatened abortion (principal); Z3A.00 Weeks of gestation of pregnancy not specified | CPT/HCPCS: 36415; 84702 ==

== ENCOUNTER → 2021-08-29 | Outpatient (CLI) | payer BC | END | disposition home or self-care (01) | LOC: LABWHC1 07:16 | PROVIDERS: ATTEND Obstetrics & Gynecology Obstetrics | DX: O20.0 Threatened abortion (principal); Z3A.00 Weeks of gestation of pregnancy not specified | CPT/HCPCS: 36415; 84702 ==

== ENCOUNTER → 2021-09-08 | Outpatient (CLI) | payer BC ==
[2021-09-08 13:34] LABS: Basophils % (A) 1 %; Eosinophils # (A) 0.2 k/uL (0-0.7); Eosinophils % (A) 2 %; HCT 40.5 % (34.0-46.0); HGB 13.3 gm/dL (11.4-16.0); Lymphocytes # (A) 2.1 k/uL (1.0-4.8); Lymphocytes % (A) 24 %; MCH 29.2 pg (25.0-35.0); MCHC 32.8 g/dL (31.0-37.0); MCV 88.8 fL (80.0-100.0); Mean Platelet Volume 6.7; Monocytes # (A) 0.3 k/uL (0-1.0); Monocytes % (A) 4 %; Neutrophils # (A) 5.8 k/uL (1.3-7.7); Neutrophils % (A) 67 %; Platelet Count 354 k/uL (150-450); RBC 4.56 m/uL (3.80-5.40); RDW 13.5 % (11.5-15.5); WBC 8.6 k/uL (3.8-10.6)
== END | disposition home or self-care (01) ==
LOC: LABPAT 12:01
PROVIDERS: ATTEND Obstetrics & Gynecology Obstetrics
DX: Z01.812 Encounter for preprocedural laboratory examination (principal); O02.1 Missed abortion; Z3A.00 Weeks of gestation of pregnancy not specified
CPT/HCPCS: 36415; 85025

== ENCOUNTER 2021-09-09 05:42 | Day surgery (SDC) | payer BC ==
[2021-09-08 09:31] VITALS: BMI 30.4
--- NOTE | 2021-09-08 09:40 | P.HPOB ---
History of Present Illness H&P Date: 09/08/21 Chief Complaint: blighted ovum 31 yo that presents for suction dilation and curettage. she had been followed with [facility] 08/18 [id number], and then 08/22 [id number]. Ultrasound on 09/07 with findings of blighted ovum. she denies vaginal bleeding or cramping. options are reviewed with pt and questions answered Review of Systems Constitutional: Denies chills, Denies fatigue, Denies fever Ears, nose, mouth and throat: Denies headache Cardiovascular: Denies leg edema Respiratory: Denies dyspnea Gastrointestinal: Denies nausea, Denies vomiting Genitourinary: Reports 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 egd Past Anesthesia/Blood Transfusion Reactions: No Reported Reaction Past Psychological History: Anxiety Smoking Status: Former smoker Past Alcohol Use History: None Reported Past Drug Use History: None Reported - Past Family History Father Family Medical History: Cancer Additional Family Medical History / Comment(s): prostate cancer Mother Family Medical History: Cancer Additional Family Medical History / Comment(s): cervical cancer Medications and Allergies Home Medications Medication Instructions Recorded Confirmed Type Acetaminophen Tab [Tylenol Tab] 1,000 mg PO Q6HR PRN #30 tablet 09/19/19 08/17/21 Rx FLUoxetine HCL [PROzac] 40 mg PO HS 08/17/21 08/17/21 History LORazepam [Ativan] 1 mg PO BID PRN 08/17/21 08/17/21 History buPROPion [Wellbutrin] 75 mg PO BID 08/17/21 08/17/21 History Allergies Allergy/AdvReac Type Severity Reaction Status Date / Time amoxicillin Allergy Rash/Hives Verified 08/17/21 20:58 Penicillins Allergy Unknown Verified 08/17/21 20:58 Childhood Exam Osteopathic Statement: *. No significant issues noted on an osteopathic structural exam other than those noted in the History and Physical/Consult. Intake and Output 09/07/21 09/08/21 09/08/21 22:59 06:59 14:59 Other: Weight 90.718 kg targeted physical exam done on this date, in general this is a well nourished well developed female in NAD, breathing is noted to be non labored uterus 12 weeks in size, no masses are appreciated. Assessment and Plan (1) Blighted ovum Status: Acute Code(s): O02.0 - BLIGHTED OVUM AND NONHYDATIDIFORM MOLE SNOMED Code(s): 70617373 Plan: 31 yo with known blighted ovum. she presents for SDC, options were reviewed with her and questions answered risk are reviewed including perforation. all questions answered
[~2021-09-09 05:42] MED LIST changes: -ACETAMINOPHEN TAB 500 MG TAB PO STA; -DEXAMETHASONE SOD PHOSPHATE 10 MG/ML 1 ML VIAL IV ONE; +DEXAMETHASONE SOD PHOSPHATE 4 MG/ML 1 ML VIAL IV ONE; -GABAPENTIN 300 MG CAP PO STA; -HEPARIN SODIUM,PORCINE 5,000 UNIT/ML 1 ML VIAL SQ ONE; -HYDROmorphone 0.5 MG/0.5 ML SYRINGE IVP PRN; -LIDOCAINE 1% (10MG/ML) FOR IV START INTRADERMA PRN; +MIDAZOLAM 2 MG/2 ML VIAL IV PRN; +Pre Op ABX Message 1 EACH MISC MISCELLANE ONE; +SCOPOLAMINE 1 MG/72 HR PATCH TRANSDERM ONE; -SCOPOLAMINE 1.5MG/72HR PATCH TRANSDERM ONE; -SCOPOLAMINE 1.5MG/72HR PATCH TRANSDERM STA
[2021-09-09] MEDS ORDERED: MIDAZOLAM 2 MG/2 ML VIAL IV ONE (06:47)
[2021-09-09] MEDS ORDERED: HYDROmorphone 0.5 MG/0.5 ML SYRINGE IVP PRN (07:00)
[2021-09-09] MEDS ORDERED: fentaNYL (PF) 50 MCG/ML 2 ML AMP ONE (07:03)
[2021-09-09] MEDS ORDERED: MIDAZOLAM 2 MG/2 ML VIAL ONE (07:03)
[2021-09-09] MEDS ORDERED: KETOROLAC 15 MG/ML 1 ML VIAL ONE (07:03)
[2021-09-09] MEDS ORDERED: PROPOFOL 10 MG/ML 20 ML VIAL IV ONE (07:03)
[2021-09-09] MEDS ORDERED: LIDOCAINE 2% INJ 20 MG/ML (2 ML VIAL) ONE (07:03)
[2021-09-09 07:44] VITALS: TEMP 97.5
--- NOTE | 2021-09-09 07:48 | P.OP ---
Date of Procedure: 09/09/21 Preoperative Diagnosis: blighted ovum Postoperative Diagnosis: same Procedure(s) Performed: Dilation and curettage Anesthesia: MAC Surgeon: Tequila Gonzalez Estimated Blood Loss (ml): 5 IV fluids (ml): 500 Urine output (ml): 100 Pathology: other (Uterine contents) Condition: stable Disposition: PACU Indications for Procedure: Blighted ovum Operative Findings: Moderate amount of products of conception Description of Procedure: Patient was taken back to the operating suite were general anesthesia was obtained without difficulty by the anesthesia department. She was prepped and draped in normal sterile fashion in dorsal lithotomy position. Weighted speculum placed in the posterior vaginal vault intralipids the cervix was visually grasped with single-tooth tenaculum. A red rubber catheter was used to drain the bladder clear yellow urine. The cervix was serially dilated. The 8 mm curved suction curette was then placed through the cervix and toward the endometrial cavity multiple passes revealed moderate amount of proximal of conception. Sharp curettage revealed an empty uterine cavity. Additional 2 passes of the suction curette were used to obtain no further tissue. The uterus was noted to be firm. Minimal bleeding was noted from the cervix. All instruments removed from the patient's vaginal vault at this time. All counts were correct 2 and the procedure. Patient tolerated procedure well and was taken the recovery room awake in stable condition.
[2021-09-09 07:50] VITALS: RESP 16
[2021-09-09] MEDS ORDERED: ONDANSETRON 4 MG/2 ML VIAL IVP ONE (07:57)
[2021-09-09 08:46] VITALS: BP 105/70; PULSE 73
== END 2021-09-09 09:04 | disposition home or self-care (01) ==
LOC: OR 05:42
PROVIDERS: ATTEND Obstetrics & Gynecology Obstetrics
DX: O02.0 Blighted ovum and nonhydatidiform mole (principal); O24.419 Gestational diabetes mellitus in pregnancy, unspecified control; F32.A Depression, unspecified; K21.9 Gastro-esophageal reflux disease without esophagitis; E07.9 Disorder of thyroid, unspecified; F41.9 Anxiety disorder, unspecified; F17.290 Nicotine dependence, other tobacco product, uncomplicated; Z88.0 Allergy status to penicillin; Z79.890 Hormone replacement therapy; Z79.899 Other long term (current) drug therapy; Z80.42 Family history of malignant neoplasm of prostate; Z80.49 Family history of malignant neoplasm of other genital organs; Z90.49 Acquired absence of other specified parts of digestive tract; Z3A.01 Less than 8 weeks gestation of pregnancy
CPT/HCPCS: 86900; 86901; 88305; 86850; 59812; J2250; J1100; J2405; J3010; J1885; J2704; J1170; J2001

== ENCOUNTER → 2021-11-11 | Outpatient (CLI) | payer BC | END | disposition home or self-care (01) | LOC: LABWHC1 07:19 | PROVIDERS: ATTEND Obstetrics & Gynecology Obstetrics | DX: O20.0 Threatened abortion (principal); Z3A.00 Weeks of gestation of pregnancy not specified | CPT/HCPCS: 36415; 84144; 84702 ==

== ENCOUNTER → 2021-11-14 | Outpatient (CLI) | payer BC | END | disposition home or self-care (01) | LOC: LABWHC1 07:05 | PROVIDERS: ATTEND Obstetrics & Gynecology Obstetrics | DX: O20.0 Threatened abortion (principal); Z3A.00 Weeks of gestation of pregnancy not specified | CPT/HCPCS: 36415; 84702 ==

== ENCOUNTER → 2021-12-16 | Outpatient (CLI) | payer BC ==
[2021-12-16 14:16] LABS: HCT 36.2 % (37.2-46.3); HGB 12.5 g/dL (12.0-15.0); MCH 30.7 pg (27.0-32.0); MCHC 34.5 g/dL (32.0-37.0); MCV 88.9 fL (80.0-97.0); NRBC Per 100 WBC 0 /100 WBCS (0.0-0.0); Platelet Count 333 X 10*3/uL (140-440); RBC 4.07 X 10*6/uL (4.10-5.20); RDW 12.5 % (11.5-14.5)
[2021-12-16 14:55] LABS: T4, Free (Free Thyroxine) 1.12 ng/dL (0.800-1.800); Uric Acid 2.8 mg/dL (2.9-7.7)
[2021-12-16 16:16] LABS: Hepatitis B Surface AB- Quant 3.5 mIU/mL; Hepatitis B Surface Antibody Nonreactive (Nonreactive)
== END | disposition home or self-care (01) ==
LOC: LABWHC1 08:08
PROVIDERS: ATTEND Obstetrics & Gynecology Obstetrics
DX: O09.299 Supervision of pregnancy with other poor reproductive or obstetric history, unspecified trimester (principal); O99.280 Endocrine, nutritional and metabolic diseases complicating pregnancy, unspecified trimester; Z3A.00 Weeks of gestation of pregnancy not specified; E05.90 Thyrotoxicosis, unspecified without thyrotoxic crisis or storm; Z87.59 Personal history of other complications of pregnancy, childbirth and the puerperium; Z86.32 Personal history of gestational diabetes
CPT/HCPCS: 36415; 82570; 82950; 83036; 84156; 84439; 84443; 84450; 84460; 84550; 85027; 86592; 86706; 86762

== ENCOUNTER → 2022-01-03 | Outpatient (CLI) | payer BC ==
[2022-01-03 11:46] LABS: Glucose 3 Hour, Gest 118 mg/dL
== END | disposition home or self-care (01) ==
LOC: LABWHC1 07:07
PROVIDERS: ATTEND Obstetrics & Gynecology Obstetrics
DX: O99.810 Abnormal glucose complicating pregnancy (principal); Z3A.00 Weeks of gestation of pregnancy not specified
CPT/HCPCS: 36415; 82951; 82952; 86850; 86900; 86901

== ENCOUNTER → 2022-01-05 | Outpatient (CLI) | payer BC ==
--- NOTE | 2022-01-05 15:59 | US ---
EXAMINATION TYPE: US OB >= 14 wk fetus DATE OF EXAM: 01/05/2022 COMPARISON: None CLINICAL HISTORY: 31-year-old female bleeding O26.852 Bleeding. Hx 2 C sections, D and C. Hx of multi ple miscarriages. Total pregnancies unknown, para 2. TECHNIQUE: Transabdominal (TA) FINDINGS: GESTATIONAL AGE / DATING Physician Established: (14 weeks/6 days) EDC: 06/30/2021 Dates by LMP: Unknown Dates by First Scan: This is first scan Dates by Current Scan: (14 weeks/5 days) EDC: 07/01/2022 SURVEY IUP: Single PLACENTA: Posterior PREVIA: No. Appears 3.4 cm away from internal os after voiding. SHON: 11.1 cm Normal CERVICAL LENGTH (transabdominal: norm > 3.0cm): 3.6 cm BIOMETRY PRESENTATION: Variable BPD: 2.70 cm 14 weeks / 6 days HC: 10.35 cm 15 weeks / 0 days AC: 8.44 cm 14 weeks / 6 days FL: 1.36 cm 14 weeks / 1 day ESTIMATED WEIGHT IN GRAMS: 98 grams ESTIMATED WEIGHT IN LBS/OZ: 0 lbs. 3 oz. WEIGHT PERCENTAGE BASED ON ESTABLISHED DATES: 14 % HC/AC: 1.23 Normal FL/AC: 16% HEART RATE: 144 bpm RHYTHM: Normal Public Works Director notes: Exam is limited due to body habitus. IMPRESSION: 1. Limited due to patient body habitus. Single live intrauterine with established gestatio nal age of 14 weeks 6 days. Current ultrasound biometry is concordant (14 weeks 5 days) but places th e child at the 14th percentile for weight. Short interval follow-up as clinically indicated. 2. Otherwise, complete survey recommended at 18-20 weeks.
== END | disposition home or self-care (01) ==
LOC: RADUSWWP 14:07
PROVIDERS: ATTEND Obstetrics & Gynecology Obstetrics
DX: O26.852 Spotting complicating pregnancy, second trimester (principal); Z3A.14 14 weeks gestation of pregnancy
CPT/HCPCS: 76805

== ENCOUNTER 2022-05-15 14:07 | Outpatient (CLI) | payer BC ==
[2022-05-15] MEDS ORDERED: LACTATED RINGERS 1,000 ML IV SCH ×2 (14:45→16:15)
[2022-05-15 15:14] LABS: Basophils % (A) 0 %; Eosinophils # (A) 0.1 k/uL (0-0.7); Eosinophils % (A) 2 %; HCT 35.9 % (34.0-46.0); HGB 12.4 gm/dL (11.4-16.0); Lymphocytes # (A) 1.3 k/uL (1.0-4.8); Lymphocytes % (A) 15 %; MCH 29.2 pg (25.0-35.0); MCHC 34.4 g/dL (31.0-37.0); MCV 84.8 fL (80.0-100.0); Mean Platelet Volume 6.8; Monocytes # (A) 0.5 k/uL (0-1.0); Monocytes % (A) 6 %; Neutrophils # (A) 6.6 k/uL (1.3-7.7); Neutrophils % (A) 75 %; Platelet Count 304 k/uL (150-450); Poikilocytosis Slight; RBC 4.24 m/uL (3.80-5.40); RDW 14.4 % (11.5-15.5); WBC 8.8 k/uL (3.8-10.6)
[2022-05-15 15:29] LABS: ALT 24 U/L (4-34); AST 26 U/L (14-36); African American GFR (CKD) >90 (>60 ml/min/1.73 sqM); Albumin 3.1 g/dL (3.5-5.0); Alkaline Phosphatase 103 U/L (38-126); Anion Gap 6 mmol/L; Blood Urea Nitrogen 6 mg/dL (7-17); Calcium 8.2 mg/dL (8.4-10.2); Carbon Dioxide 20 mmol/L (22-30); Chloride 108 mmol/L (98-107); Glucose 93 mg/dL (74-99); Non-African American GFR(CKD) >90 (>60 ml/min/1.73 sqM); Potassium 3.7 mmol/L (3.5-5.1); Sodium 134 mmol/L (137-145); Total Bilirubin 0.6 mg/dL (0.2-1.3)
[2022-05-15 15:45] LABS: Appearance,Urine Cloudy (Clear); Bacteria,Urine Many /hpf; Bilirubin,Urine Negative (Negative); Blood,Urine Negative (Negative); Calcium Oxalate Crystals,Urine Occasional /hpf; Color,Urine Yellow; Glucose,Urine (UA) Negative (Negative); Ketones,Urine Negative (Negative); Leukocyte Esterase,Urine Negative (Negative); Mucus,Urine Many /hpf; Nitrite,Urine Negative (Negative); Protein,Urine 1+ (Negative); Specific Gravity,Urine 1.021 (1.001-1.035); Squamous Epithelial Cell,Urine 17 /hpf (0-4); Urobilinogen,Urine <2.0 mg/dL (<2.0); WBC,Urine 14 /hpf (0-5)
[2022-05-15] MEDS ORDERED: ONDANSETRON 4 MG/2 ML VIAL IM STA (16:10)
[2022-05-15] MEDS ORDERED: ONDANSETRON 4 MG/2 ML VIAL IVP STA (16:18)
[2022-05-15 17:37] VITALS: BP 117/73; PULSE 102; RESP 16; TEMP 97.6
== END 2022-05-15 17:26 | disposition home or self-care (01) ==
LOC: FBPOP 14:07
PROVIDERS: ATTEND Obstetrics & Gynecology Obstetrics
DX: R19.7 Diarrhea, unspecified (principal); Z88.0 Allergy status to penicillin; Z88.1 Allergy status to other antibiotic agents
CPT/HCPCS: 59025; 96361; 96374; 36415; 80053; 85025; 81001; 87086; J2405

== ENCOUNTER 2022-06-07 15:57 | Outpatient (CLI) | payer BC ==
[2022-06-07 17:34] LABS: Basophils % (A) 0 %; Eosinophils # (A) 0.4 k/uL (0-0.7); Eosinophils % (A) 3 %; HCT 33.8 % (34.0-46.0); HGB 11.4 gm/dL (11.4-16.0); Lymphocytes # (A) 2.3 k/uL (1.0-4.8); Lymphocytes % (A) 21 %; MCH 28.5 pg (25.0-35.0); MCHC 33.7 g/dL (31.0-37.0); MCV 84.6 fL (80.0-100.0); Monocytes # (A) 0.4 k/uL (0-1.0); Monocytes % (A) 3 %; Neutrophils # (A) 7.7 k/uL (1.3-7.7); Neutrophils % (A) 70 %; Platelet Count 275 k/uL (150-450); RDW 14.8 % (11.5-15.5)
[2022-06-07 17:45] LABS: ALT 15 U/L (4-34); AST 16 U/L (14-36); African American GFR (CKD) >90 (>60 ml/min/1.73 sqM); Blood Urea Nitrogen 4 mg/dL (7-17); LDH 122 U/L (120-246); Non-African American GFR(CKD) >90 (>60 ml/min/1.73 sqM); Uric Acid 2.8 mg/dL (3.7-7.4)
[2022-06-07 17:52] LABS: Appearance,Urine Clear (Clear); Bilirubin,Urine Negative (Negative); Blood,Urine Negative (Negative); Color,Urine Light Yellow; Glucose,Urine (UA) Negative (Negative); Ketones,Urine Negative (Negative); Leukocyte Esterase,Urine Negative (Negative); Nitrite,Urine Negative (Negative); PH, Urine 6.5 (5.0-8.0); Protein,Urine Negative (Negative); Specific Gravity,Urine 1.008 (1.001-1.035); Urobilinogen,Urine <2.0 mg/dL (<2.0)
[2022-06-07 18:13] LABS: Creatinine,Urine Random 57.1 mg/dL; Protein/Creatinine Ratio,Urine 0.35
[2022-06-07 18:34] VITALS: BP 120/79; PULSE 92; RESP 16; TEMP 97
--- NOTE | 2022-07-01 11:31 | P.MSEPDOC ---
Presenting Problems - Arrival Data Date of Arrival on Unit: 06/07/22 Time of Arrival on Unit: 15:57 Mode of Transport: Ambulatory - Complaint OB-Reason for Admission/Chief Complaint: PIH Medical History - Information : 8 Para: 2 Term: 2 : 0 Abortions: Spontaneous or Elective: 5 Number of Living Children: 2 - Gestational Age Gestational Age by ADOLFO (wks/days): 36 Weeks and 5 Days - History Complications: GDM Review of Systems - Review of Systems Constitutional: No problems Breast: No problems ENT: No problems Cardiovascular: No problems Respiratory: No problems Gastrointestinal: No problems Genitourinary: No problems Musculoskeletal: No problems Neurological: No problems Skin: No problems Vital Signs - Temperature Temperature: 97.0 F Temperature Source: Temporal Artery Scan - Pulse Right Sitting Pulse Rate: 92 Pulse Assessment Method: Automatic Cuff - Respirations Respiratory Rate: 16 Oxygen Delivery Method: Room Air - Blood Pressure Right Arm Blood Pressure: 120/79 Blood Pressure Mean: 92 Blood Pressure Source: Automatic Cuff Medical Screen Scoring - Assessment - Baby A Baseline FHR: 145 Heart Rate - NICHD Category: Category I (Normal) NST: Reactive Physician Notification - Physician Notified Physician Notified Date: 06/07/22 Physician Notified Time: 18:21 Physician: Rip Almodovar Order Received: Yes (dc) Maternal Triage Index - Non-Urgent/Priority 4 Non-Urgent Priority 4: Yes Criteria Met for Priority 4: RUQ pain and lower back pain, pih eval, bps wnl, reactive nst Disposition - Disposition OB Disposition: Discharge to home Discharge Date: 06/07/22 Discharge Time: 18:25 I agree with the RN Medical Screening Exam: Yes Physician's MSE Comment: I have neither seen and examined the patient. Case reviewed; plan agreed upon as documented in EMR&OBIX.: Yes Diagnosis: RELATED CONDITIONS, UNSPECIFIED, THIRD TRIMESTER
== END 2022-06-07 18:25 | disposition home or self-care (01) ==
LOC: FBPOP 15:57
PROVIDERS: ATTEND Obstetrics & Gynecology Obstetrics
DX: O26.893 Other specified pregnancy related conditions, third trimester (principal); Z3A.36 36 weeks gestation of pregnancy; O24.419 Gestational diabetes mellitus in pregnancy, unspecified control
CPT/HCPCS: 59025; 81003; 82565; 82570; 83615; 84156; 84450; 84460; 84520; 84550; 85025; 99215

== ENCOUNTER 2022-06-16 06:00 | Inpatient (IN) | payer BC ==
[2022-06-13 12:18] VITALS: BMI 38.0
[2022-06-16] MEDS ORDERED: miSOPROStoL 200 MCG TAB PO PRN (06:20)
[2022-06-16] MEDS ORDERED: CITRIC ACID-SODIUM CITRATE 15 ML CUP PO ONE (06:20)
[2022-06-16] MEDS ORDERED: TRANEXAMIC ACID IN NACL,ISO-OS 1,000 MG in EMPTY BAG 1 BAG IV PRN (06:20)
[2022-06-16] MEDS ORDERED: CARBOPROST TROMETHAMINE 250 MCG/ML 1 ML AMP IM PRN (06:20)
[2022-06-16] MEDS ORDERED: METHYLERGONOVINE 0.2 MG/ML 1 ML AMP IM PRN (06:20)
[2022-06-16] MEDS ORDERED: OXYTOCIN 10 UNIT/ML 1 ML VIAL IM PRN (06:20)
[2022-06-16] MEDS ORDERED: OXYTOCIN 30 UNITS/500 ML NS 30 UNIT in SALINE 1 500ML.BAG IV SCH (06:30)
[2022-06-16 07:10] LABS: Glucose,Whole Blood 88 mg/dL (70-110)
[2022-06-16 07:29] LABS: Basophils % (A) 0 %; Eosinophils # (A) 0.2 k/uL (0-0.7); Eosinophils % (A) 2 %; HCT 34.4 % (34.0-46.0); HGB 11.7 gm/dL (11.4-16.0); Lymphocytes # (A) 2.1 k/uL (1.0-4.8); Lymphocytes % (A) 20 %; MCH 28.7 pg (25.0-35.0); MCV 84.3 fL (80.0-100.0); Mean Platelet Volume 7.1; Monocytes # (A) 0.5 k/uL (0-1.0); Monocytes % (A) 5 %; Neutrophils # (A) 7.6 k/uL (1.3-7.7); Neutrophils % (A) 72 %; Platelet Count 271 k/uL (150-450); RBC 4.08 m/uL (3.80-5.40); RDW 14.4 % (11.5-15.5); WBC 10.6 k/uL (3.8-10.6)
[2022-06-16] MEDS: LACTATED RINGERS 1,000 ML IV SCH ×4 (07:55→17:49)
[2022-06-16] MEDS ORDERED: NALBUPHINE 10 MG/ML (10 ML MDV) ONE (08:05)
[2022-06-16] MEDS ORDERED: ePHEDrine 50 MG/ML 1 ML VIAL ONE (08:05)
[2022-06-16] MEDS ORDERED: OXYTOCIN 30 UNITS/500 ML NS BAG IV ONE (08:05)
[2022-06-16] MEDS ORDERED: ONDANSETRON 4 MG/2 ML VIAL ONE (08:05)
[2022-06-16] MEDS ORDERED: MORPHINE SULFATE (PF) 0.3 MG/0.3 ML SYR ONE (08:05)
[2022-06-16] MEDS ORDERED: ONDANSETRON 4 MG/2 ML VIAL IVP PRN (09:24)
[2022-06-16] MEDS ORDERED: ZOLPIDEM 5 MG TAB PO PRN (09:24)
[2022-06-16] MEDS ORDERED: NALOXONE 0.4 MG/ML 1 ML VIAL IV PRN (09:24)
[2022-06-16] MEDS ORDERED: diphenhydrAMINE 25 MG CAP PO PRN (09:24)
[2022-06-16] MEDS ORDERED: METOCLOPRAMIDE 5 MG/ML 2 ML VIAL IVP PRN (09:24)
[2022-06-16] MEDS ORDERED: diphenhydrAMINE 50 MG/ML 1 ML VIAL IVP PRN (09:24)
[2022-06-16] MEDS: ACETAMINOPHEN IV (For NPO) 1,000 MG in EMPTY BAG 1 BAG IVPB PRN ×2 (09:33→16:27)
[2022-06-16] MEDS: diphenhydrAMINE 50 MG/ML 1 ML VIAL IVP PRN ×2 (12:00→19:45)
--- NOTE | 2022-06-16 12:04 | P.HPOB ---
History of Present Illness H&P Date: 06/16/22 Chief Complaint: IUP at 39-0/7 weeks, history of , family status co mplete This is a 32-year-old 5 para 2021 at 39-2/7 weeks that presents to labor and delivery for scheduled repeat section with tubal ligation. Patient has been receiving routine care with myself which is been complicated by first trimester vaginal bleeding and a covid infection the second trimester. Patient has a history of factor V Leiden and is been taking aspirin daily, in addition she was diagnosed with gestational diabetes and has been seeing maternal medicine for insulin management. Blood sugars have been reasonably well controlled. Patient has been undergoing testing which has been normal in nature good growth has appreciated Patient is noting good movement denies vaginal bleeding or loss of fluid. On bloodwork this patient has a blood type of A+, rubella status immune, B surface antigen negative, HIV negative, RPR is nonreactive, group beta strep cultures are negative. Review of Systems Constitutional: Denies chills, Denies fatigue, Denies fever Ears, nose, mouth and throat: Denies headache Cardiovascular: Reports leg edema Respiratory: Denies dyspnea Gastrointestinal: Denies constipation, Denies diarrhea, Denies nausea, Denies vomiting Genitourinary: Reports Past Medical History Past Medical History: Blood Disorder, Diabetes Mellitus, GERD/Reflux, Thyroid Disorder Additional Past Medical History / Comment(s): Factor V, current Insulin Dependent Gestational Diabetes, also had with last . History of Any Multi-Drug Resistant Organisms: None Reported Past Surgical History: Section, Cholecystectomy Additional Past Surgical History / Comment(s): Section X2, EGD. Past Anesthesia/Blood Transfusion Reactions: No Reported Reaction Past Psychological History: Anxiety, Depression Additional Psychological History / Comment(s): NOT ON ANY RX AT THIS TIME Smoking Status: Former smoker Past Alcohol Use History: None Reported Additional Past Alcohol Use History / Comment(s): QUIT SMOKING 9-10 YEARS AGO. Past Drug Use History: None Reported - Past Family History Father Family Medical History: Cancer Additional Family Medical History / Comment(s): Prostate cancer. Mother Family Medical History: Cancer Additional Family Medical History / Comment(s): Cervical cancer. Medications and Allergies Home Medications Medication Instructions Recorded Confirmed Type FLUoxetine HCL [PROzac] 40 mg PO HS 08/17/21 06/16/22 History Levothyroxine Sodium 125 mcg PO QAM 09/08/21 06/16/22 History Aspirin 81 mg PO DAILY 05/15/22 06/16/22 History Insulin Glargine [Lantus Vial] 74 units SQ HS 05/15/22 06/16/22 History Vit No.179/Iron/Folic 1 tab PO DAILY 05/15/22 06/16/22 History [ Tablet] Omeprazole 20 mg PO DAILY 06/13/22 06/16/22 History Allergies Allergy/AdvReac Type Severity Reaction Status Date / Time amoxicillin Allergy Rash/Hives Verified 06/16/22 06:18 Penicillins Allergy Unknown Verified 06/16/22 06:18 Childhood Exam Osteopathic Statement: *. No significant issues noted on an osteopathic structural exam other than those noted in the History and Physical/Consult. Vital Signs Temp Pulse Resp BP Pulse Ox 06/16/22 06:18 97.3 F L 106 H 16 123/72 97 Intake and Output 06/15/22 06/16/22 06/16/22 22:59 06:59 14:59 Other: Weight 113.398 kg Targeted physical exam is performed in this date and roving hand a well-nourished well-developed female in no acute distress, breathing is nonlabored, heart has a regular in, abdomen is gravid and appropriate for gestational age, heart tones are noted to be category 1 and she is not jennifer Results Result Diagrams: 06/16/22 06:30 Assessment and Plan (1) H/O section Current Visit: Yes Status: Acute Code(s): Z98.891 - HISTORY OF UTERINE SCAR FROM PREVIOUS SURGERY SNOMED Code(s): 363434355 (2) Family planning Current Visit: Yes Status: Acute Code(s): Z30.09 - ENCOUNTER FOR OTH GENERAL CNSL AND ADVICE ON CONTRACEPTION SNOMED Code(s): 432462831 (3) 39 weeks gestation of Current Visit: No Status: Acute Code(s): Z3A.39 - 39 WEEKS GESTATION OF SNOMED Code(s): 12309341 (4) Factor 5 Leiden mutation, heterozygous Current Visit: No Status: Acute Code(s): D68.51 - ACTIVATED PROTEIN C RE SISTANCE SNOMED Code(s): 210476151 (5) Gestational diabetes Current Visit: No Status: Acute Code(s): O24.419 - GESTATIONAL DIABETES MELLITUS IN , UNSP CONTROL SNOMED Code(s): 39066949 Plan: This is a 32-year-old 5 para 20-2 at 39 0/7 weeks presents for repeat section with tubal ligation. Surgery is reviewed with patient risks and benefits are discussed and patient states understanding. Patient is taken back to the operating suite for scheduled repeat section with tubal ligation.
--- NOTE | 2022-06-16 12:08 | P.OP ---
Date of Procedure: 06/16/22 Preoperative Diagnosis: IUP at 39-0/7 weeks, history of 2, family status complete Postoperative Diagnosis: Same Procedure(s) Performed: Repeat section with tubal ligation Anesthesia: spinal Surgeon: Tequila Gonzalez Tip Mender #1: Darcie Martinez Estimated Blood Loss (ml): 342 IV fluids (ml): 800 Urine output (ml): 150 Pathology: other (Placenta) Condition: stable Disposition: observation Indications for Procedure: History of 2 desires repeat with tubal ligation Operative Findings: Normal uterus tubes and ovaries were appreciated. Viable male infant delivered at 8:30, weight of 7 lbs. 11 oz., Apgars of 57 and 8 at one and 5 and 10 minutes respectively Description of Procedure: The patient was prepped and draped in the usual fashion after spinal anesthesia was administered by the anesthesia department. A Pfannenstiel incision was made and extended of the abdominal cavity without difficulty. The bladder peritoneum was elevated and incised and reflected distally. A 2 cm incision was made in the transverse plane of the lower uterine segment to enter the uterus at which time clear fluid was noted. The incision was extended in both directions using the bandage scissors. The head was encountered within the field and delivered up via vacuum assist and through the incision where the nose and mouth were thoroughly suctioned. Remainder of the infant was delivered onto the surgical field where the cord was doubly clamped, cut, and the infant was passed for resuscitative measures with weight and Apgars as noted above. A segment of cord was then doubly clamped, cut, and set aside should cord gases become necessary. The placenta was delivered manually, intact, and was grossly normal with a grossly normal three-vessel cord. The uterus was exteriorized and the interior cavity of the uterus swept of any remaining placental and membranous fragments with a laparotomy sponge. The margins of the incision were grasped with Allis clamps and the incision closed in 2 layers. First layer was a running locking layer of 0 vicryl from margin to margin followed by a second layer of imbricating 0 vicryl from margin to margin. Any small points of bleeding were then made hemostatic with the Bovie. Once hemostasis was achieved, the posterior cul-de-sac was suctioned with a guard and the uterine and ovarian findings are as noted above. The uterus was replaced within the abdominal cavity and the gutters swept of any remaining blood fluid or clot. The incision was again reexamined and hemostasis was noted to be excellent. Any small point of bleeding were made hemostatic with the Bovie. Once hemostasis was achieved the parietal peritoneum was loosely reapproximated. The layer of m uscles were examined and made hemostatic with the Bovie. surgiseal powder was placed on lyric upper portion of the right rectus muscle. Attention was then turned to the fascia which was closed with 2 running stitches of 0 Vicryl proceeding from the lateral margins to the midpoint. The subcutaneous tissues were irrigated, made hemostatic with the Bovie, and reapproximated with a running stitch of 30 vicryl. The skin was reapproximated with 4-0 vicryl. Estimated blood loss for the case was approximately 342 mL. All sponge instrument and needle counts are correct. There were no complications. The patient tolerated the procedure well and proceeded to the recovery room in stable condition. Both mother and infant are resting comfortably in recovery.
--- NOTE | 2022-06-16 12:40 | P.PN ---
Progress Note - Text Progress Note Date: 06/16/22 In to see patient for postop evaluation. Patient is doing well postoperatively. She was in the nursery to see her who remains in special care nursery for evaluation. She had some nausea while in the nursery and went back to her room Patient states overall she is feeling better in her room and is just tired now. Her RN did just give her benadrul for itching Catheter is evaluated and clear yellow urine is noted to be draining. Incision is noted to be clean and dry with dressing intact. Vital signs are stable uterus is firm and below the umbilicus Postop day 0, repeat with tubal ligation Patient is doing well and will plan to continue routine postoperative care
[2022-06-16] MEDS: ACETAMINOPHEN TAB 500 MG TAB PO SCH ×3 (13:53→22:05)
[2022-06-16] MEDS ORDERED: NALBUPHINE 10 MG/ML (10 ML MDV) IM ONE (14:15)
[2022-06-16] MEDS ORDERED: IBUPROFEN IV 800 MG in SODIUM CHLORIDE 0.9% 250 ML IV PRN (18:00)
[2022-06-16] MEDS: IBUPROFEN 600 MG TAB PO SCH ×2 (18:47→22:43)
[2022-06-16] MEDS: SIMETHICONE 80 MG CHEWABLE PO PRN (18:52)
[2022-06-16] MEDS: SENNOSIDES-DOCUSATE SODIUM 1 EACH TAB PO SCH (19:50)
[2022-06-16 20:28] LABS: Glucose,Whole Blood 55 mg/dL (70-110)
[2022-06-16 20:52] LABS: Glucose,Whole Blood 57 mg/dL (70-110)
[2022-06-16 21:25] LABS: Glucose,Whole Blood 76 mg/dL (70-110)
[2022-06-16] MEDS: ENOXAPARIN 40 MG/0.4 ML SYRINGE SQ SCH (22:07)
[2022-06-17] MEDS: IBUPROFEN 600 MG TAB PO SCH ×4 (01:03→20:50)
[2022-06-17] MEDS: LACTATED RINGERS 1,000 ML IV SCH ×2 (02:57→19:55)
[2022-06-17] MEDS: ACETAMINOPHEN TAB 500 MG TAB PO SCH ×3 (03:38→20:45)
[2022-06-17] MEDS: LEVOTHYROXINE 125 MCG TAB PO SCH (06:46)
[2022-06-17] MEDS: SIMETHICONE 80 MG CHEWABLE PO PRN ×2 (06:48→13:45)
--- NOTE | 2022-06-17 08:09 | P.PN ---
Subjective Progress Note Date: 06/17/22 Principal diagnosis: Doing well postoperative day #1 Slept well. Positive flatus. No complaints. Objective - Vital Signs Vital signs: Vital Signs Temp 98.4 F 06/17/22 04:00 Pulse 77 06/17/22 04:00 Resp 15 06/17/22 04:00 BP 100/65 06/17/22 04:00 Pulse Ox 96 06/17/22 04:00 FiO2 Intake & Output 06/16/22 06/17/22 06/17/22 18:59 06:59 18:59 Output Total 3900 750 Balance -3900 -750 Output: Urine 3550 750 Uretheral (Jimenez) 1600 Output, Quantitative 350 Blood Loss Other: Voiding Method Indwelling Catheter # Voids 2 - Constitutional General appearance: Present: average body habitus, cooperative - EENT Eyes: Present: PERRLA ENT: Present: hearing grossly normal - Neck Neck: Present: normal ROM - Respiratory Respiratory: bilateral: CTA - Cardiovascular Rhythm: regular - Gastrointestinal Gastrointestinal Comment(s): Incision clean and dry, intact, Steri-Strips applied. General gastrointestinal: Present: normal bowel sounds - Genitourinary Genitourinary Comment(s): Incision clean and dry, intact with Steri-Strips applied. Fundus firm, midline, symmetric, 18 week size, minimally tender. - Integumentary Integumentary: Present: normal - Neurologic Neurologic: Present: CNII-XII intact - Musculoskeletal Musculoskeletal: Present: gait normal, strength equal bilaterally - Psychiatric Psychiatric: Present: A&O x's 3, appropriate affect, intact judgment & insight - Labs CBC & Chem 7: 06/16/22 06:30 Labs: Abnormal Lab Results - Last 24 Hours (Table) 06/16/22 06/16/22 Range/Units 20:26 20:50 POC Glucose (mg/dL) 55 L 57 L (70-110) mg/dL Assessment and Plan Assessment: Doing well postoperative day #1 Plan: Continue postoperative care. Advanced diet and activity. Lovenox for history of factor V Leiden. nursery on antibiotics, likely discharge home on Sunday. Time with Patient: Less than 30
[2022-06-17] MEDS: SENNOSIDES-DOCUSATE SODIUM 1 EACH TAB PO SCH ×2 (08:41→20:50)
[2022-06-17] MEDS: diphenhydrAMINE 50 MG CAP PO PRN (08:41)
[2022-06-17] MEDS: ENOXAPARIN 40 MG/0.4 ML SYRINGE SQ SCH (08:42)
[2022-06-17 08:48] LABS: Basophils % (A) 0 %; Eosinophils # (A) 0.2 k/uL (0-0.7); Eosinophils % (A) 2 %; HCT 34.6 % (34.0-46.0); HGB 11.5 gm/dL (11.4-16.0); Lymphocytes # (A) 1.3 k/uL (1.0-4.8); Lymphocytes % (A) 11 %; MCH 28.6 pg (25.0-35.0); MCHC 33.2 g/dL (31.0-37.0); MCV 86.2 fL (80.0-100.0); Mean Platelet Volume 7.6; Monocytes # (A) 0.5 k/uL (0-1.0); Monocytes % (A) 4 %; Neutrophils # (A) 9.4 k/uL (1.3-7.7); Neutrophils % (A) 81 %; Platelet Count 233 k/uL (150-450); RBC 4.02 m/uL (3.80-5.40); RDW 14.6 % (11.5-15.5); WBC 11.7 k/uL (3.8-10.6)
[2022-06-18] MEDS: ACETAMINOPHEN TAB 500 MG TAB PO SCH ×4 (00:34→20:24)
[2022-06-18] MEDS: SIMETHICONE 80 MG CHEWABLE PO PRN ×3 (01:12→21:14)
[2022-06-18] MEDS: IBUPROFEN 600 MG TAB PO SCH ×4 (04:18→21:14)
--- NOTE | 2022-06-18 07:50 | P.PN ---
Subjective Progress Note Date: 06/18/22 Principal diagnosis: Postoperative day #2 Slept well last night. Minimal lochia rubra. No complaints. Objective - Vital Signs Vital signs: Vital Signs Temp 98.5 F 06/18/22 00:00 Pulse 84 06/18/22 00:00 Resp 16 06/18/22 00:00 BP 100/64 06/18/22 00:00 Pulse Ox 96 06/18/22 00:00 FiO2 Intake & Output 06/17/22 06/18/22 06/18/22 18:59 06:59 18:59 Other: # Voids 1 - Constitutional General appearance: Present: average body habitus, cooperative - EENT Eyes: Present: PERRLA - Respiratory Respiratory: bilateral: CTA - Cardiovascular Rhythm: regular - Gastrointestinal Gastrointestinal Comment(s): Incision clean and dry, intact, Steri-Strips applied. Fundus firm, midline, symmetric, nontender. General gastrointestinal: Present: normal bowel sounds - Integumentary Integumentary: Present: normal - Neurologic Neurologic: Present: CNII-XII intact - Musculoskeletal Musculoskeletal: Present: gait normal, strength equal bilaterally - Psychiatric Psychiatric: Present: A&O x's 3, appropriate affect, intact judgment & insight - Labs CBC & Chem 7: 06/17/22 08:37 Labs: Abnormal Lab Results - Last 24 Hours (Table) 06/17/22 Range/Units 08:37 WBC 11.7 H (3.8-10.6) k/uL Neutrophils # 9.4 H (1.3-7.7) k/uL Assessment and Plan Assessment: Doing well second postoperative day Plan: still in the nursery on antibiotics. Continue postoperative care. Likely circumcision on her and discharge home tomorrow. Time with Patient: Less than 30
[2022-06-18] MEDS: SENNOSIDES-DOCUSATE SODIUM 1 EACH TAB PO SCH ×2 (08:05→21:54)
[2022-06-18] MEDS: LEVOTHYROXINE 125 MCG TAB PO SCH (08:12)
[2022-06-18] MEDS: ENOXAPARIN 40 MG/0.4 ML SYRINGE SQ SCH (08:12)
[2022-06-18] MEDS: diphenhydrAMINE 50 MG CAP PO PRN (21:14)
[2022-06-19] MEDS: ACETAMINOPHEN TAB 500 MG TAB PO SCH ×3 (01:19→09:07)
[2022-06-19 01:30] VITALS: TEMP 97.9
[2022-06-19] MEDS: IBUPROFEN 600 MG TAB PO SCH ×2 (06:30→12:58)
[2022-06-19] MEDS: LEVOTHYROXINE 125 MCG TAB PO SCH (06:32)
[2022-06-19 08:21] VITALS: BP 134/88; PULSE 85; RESP 16
[2022-06-19] MEDS: SENNOSIDES-DOCUSATE SODIUM 1 EACH TAB PO SCH (08:21)
[2022-06-19] MEDS: SIMETHICONE 80 MG CHEWABLE PO PRN ×2 (09:07→12:58)
[2022-06-19] MEDS: ENOXAPARIN 40 MG/0.4 ML SYRINGE SQ SCH (09:08)
--- NOTE | 2022-06-19 10:06 | P.PN ---
Progress Note - Text 06/17/22 640am 32-year-old female status post with spinal Duramorph patient seen and evaluated for postop pain control, she has a VAS of 0 with no complains of nausea vomiting or pruritus. Patient doing well
--- NOTE | 2022-06-19 11:29 | P.DS ---
Providers Date of admission: 06/16/22 06:00 Expected date of discharge: 06/19/22 Attending physician: Tequila Gonzalez Primary care physician: Stated None - Discharge Diagnosis(es) (1) H/O section Current Visit: Yes Status: Acute (2) Family planning Current Visit: Yes Status: Acute (3) 39 weeks gestation of Current Visit: No Status: Acute (4) Factor 5 Leiden mutation, heterozygous Current Visit: No Status: Acute (5) Gestational diabetes Current Visit: No Status: Acute Hospital Course: This is a 32-year-old 5 para 3023 that presented to labor and delivery at 39-2/7 weeks on 06/16 for scheduled repeat section with tubal ligation. Patient had been receiving routine care which has been complicated by first trimester vaginal bleeding, according to infection and the second trimester history of factor V Leiden and gestational diabetes. Patient did see maternal medicine for gestational diabetes and insulin management. Patient states her blood sugars have been reasonably well-controlled. Patient was admitted and was done without issue. Vacuum assist delivery was noted given presentation and occiput transverse presentation. Viable male infant delivered at 8:30, weight of 7 lbs. 11 oz. infant did have some noted grunting at the time of delivery therefore was taken back to the special care nursery for observation. Patient was placed on antibiotics. Patient has done well postoperatively. On this postoperative day #3 she is involuting and voiding without difficulty. She is tolerating a regular diet without nausea or vomiting. She states her pain is well-controlled. She is very excited to be d ischarged home later this afternoon with her infant. Patient Condition at Discharge: Good Plan - Discharge Summary Discharge Rx Participant: Yes New Discharge Prescriptions: No Action Levothyroxine Sodium 125 mcg PO QAM Insulin Glargine [Lantus Vial] 74 units SQ HS Aspirin 81 mg PO DAILY Vit No.179/Iron/Folic [ Tablet] 1 tab PO DAILY FLUoxetine HCL [PROzac] 40 mg PO HS Omeprazole 20 mg PO DAILY Discharge Medication List FLUoxetine HCL [PROzac] 40 mg PO HS 08/17/21 [History] Levothyroxine Sodium 125 mcg PO QAM 09/08/21 [History] Aspirin 81 mg PO DAILY 05/15/22 [History] Insulin Glargine [Lantus Vial] 74 units SQ HS 05/15/22 [History] Vit No.179/Iron/Folic [ Tablet] 1 tab PO DAILY 05/15/22 [History] Omeprazole 20 mg PO DAILY 06/13/22 [History] Follow up Appointment(s)/Referral(s): Tequila Gonzalez DO [Doctor of Osteopathic Medicine] - 2 Weeks Patient Instructions/Handouts: (DC), (GEN) Activity/Diet/Wound Care/Special Instructions: Patient is counseled on oggw-osc-rucownn ibuprofen and Tylenol for pain control . No tub baths or intercourse until 6 weeks . Patient is to call the office and schedule a 2 week visit. Discharge Disposition: HOME SELF-CARE
== END 2022-06-19 15:15 | disposition home or self-care (01) | DRG 784 ==
LOC: 4FBP 06:00
PROVIDERS: ADMIT Obstetrics & Gynecology Obstetrics; ATTEND Obstetrics & Gynecology Obstetrics
PROC: 0UB70ZZ Excision of Bilateral Fallopian Tubes, Open Approach (ICD-10-PCS; 2022-06-16)
PROC: 10D00Z1 Extraction of Products of Conception, Low, Open Approach (ICD-10-PCS; principal; 2022-06-16 08:00)
DX: O34.211 Maternal care for low transverse scar from previous cesarean delivery (principal); D68.51 Activated protein C resistance; O99.12 Other diseases of the blood and blood-forming organs and certain disorders involving the immune mechanism complicating childbirth; O24.424 Gestational diabetes mellitus in childbirth, insulin controlled; K21.9 Gastro-esophageal reflux disease without esophagitis; O99.284 Endocrine, nutritional and metabolic diseases complicating childbirth; E07.9 Disorder of thyroid, unspecified; O99.62 Diseases of the digestive system complicating childbirth; O32.2XX0 Maternal care for transverse and oblique lie, not applicable or unspecified; Z3A.39 39 weeks gestation of pregnancy; Z37.0 Single live birth; Z30.2 Encounter for sterilization; Z87.891 Personal history of nicotine dependence; Z79.82 Long term (current) use of aspirin; Z79.4 Long term (current) use of insulin; Z79.890 Hormone replacement therapy; Z79.899 Other long term (current) drug therapy
CPT/HCPCS: 85025; 86850; 86900; 86901; 88307

== ENCOUNTER 2022-06-22 10:11 | Inpatient (IN) | payer BC ==
[2022-06-22 10:42] LABS: Glucose,Whole Blood 100 mg/dL (70-110)
[2022-06-22 11:30] LABS: ALT 30 U/L (4-34); African American GFR (CKD) >90 (>60 ml/min/1.73 sqM); Blood Urea Nitrogen 14 mg/dL (7-17); Non-African American GFR(CKD) >90 (>60 ml/min/1.73 sqM)
[2022-06-22 11:32] LABS: AST 46 U/L (14-36); LDH 409 U/L (120-246); Uric Acid 3.3 mg/dL (3.7-7.4)
[2022-06-22] MEDS ORDERED: MAGNESIUM SULFATE-WATER PMX 4 GM in WATER FOR INJECTION 1 100ML.BAG IVPB ONE (11:49)
[2022-06-22] MEDS ORDERED: LACTATED RINGERS 1,000 ML IV SCH (12:00)
[2022-06-22 12:06] LABS: Appearance,Urine Clear (Clear); Bilirubin,Urine Negative (Negative); Blood,Urine Moderate (Negative); Color,Urine Light Yellow; Glucose,Urine (UA) Negative (Negative); Ketones,Urine Negative (Negative); Leukocyte Esterase,Urine Negative (Negative); Mucus,Urine Occasional /hpf; Nitrite,Urine Negative (Negative); PH, Urine 6.5 (5.0-8.0); Protein,Urine Trace (Negative); RBC,Urine 8 /hpf (0-5); Specific Gravity,Urine 1.016 (1.001-1.035); Squamous Epithelial Cell,Urine 1 /hpf (0-4); Urobilinogen,Urine <2.0 mg/dL (<2.0); WBC,Urine 2 /hpf (0-5)
[2022-06-22] MEDS: LABETALOL 200 MG TAB PO SCH ×2 (12:07→21:22)
[2022-06-22 12:15] LABS: Basophils % (A) 1 %; Eosinophils # (A) 0.1 k/uL (0-0.7); Eosinophils % (A) 2 %; HCT 34.5 % (34.0-46.0); HGB 12.2 gm/dL (11.4-16.0); Lymphocytes # (A) 1.8 k/uL (1.0-4.8); Lymphocytes % (A) 23 %; MCH 30.3 pg (25.0-35.0); MCHC 35.3 g/dL (31.0-37.0); MCV 85.8 fL (80.0-100.0); Mean Platelet Volume 7.3; Monocytes # (A) 0.4 k/uL (0-1.0); Monocytes % (A) 5 %; Neutrophils # (A) 5.4 k/uL (1.3-7.7); Neutrophils % (A) 68 %; Platelet Count 330 k/uL (150-450); RBC 4.02 m/uL (3.80-5.40); RDW 13.4 % (11.5-15.5)
[2022-06-22 12:24] LABS: Creatinine,Urine Random 81.7 mg/dL; Protein/Creatinine Ratio,Urine 0.196
[2022-06-22] MEDS: MAGNESIUM SULFATE-WATER PMX 20 GM in WATER FOR INJECTION 1 500ML.BAG IV SCH ×2 (12:35→23:15)
--- NOTE | 2022-06-22 13:25 | P.HPOB ---
History of Present Illness H&P Date: 06/22/22 Chief Complaint: preeclampsia This is a 32-year-old postop day 7 from repeat section with tubal ligation. Patient states she has noted slightly elevated blood pressures at home. She was at the [employer] office with her the centerless grinder took her blood pressure and was noted to be 160/100. Patient in addition has noted some increasing epigastric pain. Patient is a prior history of preeclampsia therefore presented to OB triage for further evaluation. Initial blood pressure 160/100, followed by 150s over 100. Patient states she does have a mild headache and as stated above epigastric pain. Patient denies concerns with her section incision. She states her lochia is minimal. She denies pain from her section. Review of Systems Constitutional: Reports fatigue, Denies chills, Denies fever Ears, nose, mouth and throat: Reports headache Cardiovascular: Reports leg edema Respiratory: Denies dyspnea Gastrointestinal: Reports as per HPI, Denies nausea, Denies vomiting Genitourinary: Denies Past Medical History Past Medical History: Blood Disorder, GERD/Reflux, Thyroid Disorder Additional Past Medical History / Comment(s): Factor V. gallbladder disorder History of Any Multi-Drug Resistant Organisms: None Reported Past Surgical History: Section, Cholecystectomy Additional Past Surgical History / Comment(s): C-SEC X 3. egd Past Anesthesia/Blood Transfusion Reactions: No Reported Reaction Past Psychological History: Anxiety Additional Psychological History / Comment(s): On Prozac Smoking Status: Former smoker Past Alcohol Use History: None Reported Additional Past Alcohol Use History / Comment(s): QUIT SMOKING OVER 5 YEARS AGO. Past Drug Use History: None Reported - Past Family History Father Family Medical History: Cancer Mother Family Medical History: Cancer Medications and Allergies Home Medications Medication Instructions Recorded Confirmed Type FLUoxetine HCL [PROzac] 40 mg PO HS 08/17/21 06/22/22 History Levothyroxine Sodium 125 mcg PO QAM 09/08/21 06/22/22 History Vit No.179/Iron/Folic 1 tab PO DAILY 05/15/22 06/22/22 History [ Tablet] Omeprazole 20 mg PO DAILY 06/13/22 06/22/22 History Enoxaparin [Lovenox] 30 mg SQ DAILY 06/22/22 06/22/22 History Allergies Allergy/AdvReac Type Severity Reaction Status Date / Time amoxicillin Allergy Rash/Hives Verified 06/22/22 10:26 Penicillins Allergy Unknown Verified 06/22/22 10:26 Childhood Exam Osteopathic Statement: *. No significant issues noted on an osteopathic structural exam other than those noted in the History and Physical/Consult. Vital Signs Pulse Resp BP Pulse Ox 06/22/22 12:19 59 L 18 142/78 06/22/22 12:04 62 18 139/74 06/22/22 11:49 51 L 18 163/83 100 Intake and Output 06/21/22 06/22/22 06/22/22 22:59 06:59 14:59 Intake Total 250 Output Total 800 Balance -550 Intake: Intake, IV Titration 250 Amount Lactated Ringers 1,000 ml 125 @ 25 mls/hr IV .Q24H [facility] Rx#:[id number] Magnesium Sulfate-Water 25 Pmx 20 gm In Water For Injection 1 500ml.bag @ 2 GM/HR 50 mls/hr IV .Q10H [facility] Rx#:[id number] Magnesium Sulfate-Water 100 Pmx 4 gm In Water For Injection 1 100ml.bag @ 300 mls/hr IVPB ONCE ONE Rx#:[id number] Output: Urine 800 Other: Weight 109.27 kg Targeted physical exam is performed in this date and poultry sexer a well-nourished well-developed non female in no acute distress, breathing is noted to be nonlabored, heart has a regular, abdomen is uterus is firm and below the umbilicus, incision is clean dry and intact with Steri-Strips in place. Results Result Diagrams: 06/22/22 11:00 06/22/22 11:00 Abnormal Lab Results - Last 24 Hours (Table) 06/22/22 06/22/22 Range/Units 11:00 11:00 Creatinine 0.40 L (0.52-1.04) mg/dL Uric Acid 3.3 L (3.7-7.4) mg/dL AST 46 H (14-36) U/L Lactate Dehydrogenase 409 H (120-246) U/L Urine Protein Trace H (Negative) Urine Blood Moderate H (Negative) Urine RBC 8 H (0-5) /hpf Urine Mucus Occasional H (None) /hpf Assessment and Plan (1) Preeclampsia in period Current Visit: Yes Status: Acute Code(s): O14.95 - UNSPECIFIED PRE- ECLAMPSIA, COMPLICATING THE PUERPERIUM SNOMED Code(s): 688302582 (2) Status post repeat low transverse section Current Visit: No Status: Acute Code(s): Z98.891 - HISTORY OF UTERINE SCAR FROM PREVIOUS SURGERY SNOMED Code(s): 617811815 Plan: 32 yo post day 7 s/p repeat section with tubal ligation. Preeclampsia labs are drawn and essentially normal, magnesium bolus is given 4 g followed by 2 g of maintenance infusion. Jimenez catheter was placed to drainage. Given elevated blood pressures labetalol 200 mg by mouth is started and blood pressures will be monitored serially. Plan of care was discussed with patient in detail. Magnesium will be continued for 24 hours, strict I's and O's will be documented. Repeat preeclampsia labs in the a.m. All questions are answered to patient's satisfaction.
[2022-06-22] MEDS ORDERED: IBUPROFEN 600 MG TAB PO SCH (22:00)
[2022-06-22] MEDS ORDERED: IBUPROFEN 600 MG TAB PO PRN (22:02)
[2022-06-22] MEDS: ACETAMINOPHEN TAB 325 MG TAB PO PRN (23:26)
[2022-06-23] MEDS: ACETAMINOPHEN TAB 325 MG TAB PO PRN (05:40)
[2022-06-23 07:12] LABS: Basophils % (A) 0 %; Eosinophils # (A) 0.2 k/uL (0-0.7); Eosinophils % (A) 2 %; HCT 35.7 % (34.0-46.0); HGB 12.1 gm/dL (11.4-16.0); Lymphocytes # (A) 1.5 k/uL (1.0-4.8); Lymphocytes % (A) 16 %; MCH 29.3 pg (25.0-35.0); MCHC 33.9 g/dL (31.0-37.0); MCV 86.4 fL (80.0-100.0); Mean Platelet Volume 6.6; Monocytes # (A) 0.5 k/uL (0-1.0); Monocytes % (A) 5 %; Neutrophils # (A) 6.7 k/uL (1.3-7.7); Neutrophils % (A) 75 %; Platelet Count 344 k/uL (150-450); RBC 4.13 m/uL (3.80-5.40); RDW 13.5 % (11.5-15.5)
[2022-06-23 07:18] LABS: INR 0.9 (<1.2); Partial Thromboplastin Time 23.7 sec (22.0-30.0)
[2022-06-23 07:39] LABS: ALT 28 U/L (4-34); AST 20 U/L (14-36); African American GFR (CKD) >90 (>60 ml/min/1.73 sqM); Blood Urea Nitrogen 8 mg/dL (7-17); LDH 192 U/L (120-246); Non-African American GFR(CKD) >90 (>60 ml/min/1.73 sqM); Uric Acid 4.9 mg/dL (3.7-7.4)
[2022-06-23 07:40] LABS: Magnesium 5.5 mg/dL (1.6-2.3)
[2022-06-23] MEDS: LABETALOL 200 MG TAB PO SCH ×3 (08:43→21:05)
--- NOTE | 2022-06-23 09:23 | P.PN ---
Subjective Progress Note Date: 06/23/22 Principal diagnosis: preeclampsia Patient did well overnight, BP 110/60-70's. Patient states admit to a slight headache this morning, but notes decreased caffeine intake since yesterday. Urine output has been good overnight, she denies pain. She is tolerating clear liquids without nausea or vomiting. Objective - Vital Signs Vital signs: Vital Signs Temp 98.0 F 06/23/22 07:00 Pulse 72 06/23/22 09:00 Resp 16 06/23/22 09:00 BP 123/74 06/23/22 09:00 Pulse Ox 95 06/23/22 09:00 FiO2 Intake & Output 06/22/22 06/23/22 06/23/22 18:59 06:59 18:59 Intake Total 550 2125 225 Output Total 2250 4200 1250 Balance -1700 -2075 -1025 Weight 109.27 kg Intake: Intake, IV Titration 550 1325 225 Amount Lactated Ringers 1,000 ml 225 275 75 @ 25 mls/hr IV .Q24H [facility] Rx#:[id number] Magnesium Sulfate-Water 225 650 Pmx 20 gm In Water For Injection 1 500ml.bag @ 2 GM/HR 50 mls/hr IV .Q10H [facility] Rx#:[id number] Magnesium Sulfate-Water 100 400 150 Pmx 4 gm In Water For Injection 1 100ml.bag @ 300 mls/hr IVPB ONCE ONE Rx#:[id number] Oral 800 Output: Urine 2250 4200 1250 Other: # Bowel Movements 1 - Constitutional General appearance: Present: average body habitus, cooperative, no acute distress - EENT Eyes: Present: EOMI - Respiratory Respiratory: bilateral: CTA - Gastrointestinal Gastrointestinal Comment(s): incision c/d/i General gastrointestinal: Present: soft - Labs CBC & Chem 7: 06/23/22 06:41 06/23/22 06:41 Labs: Abnormal Lab Results - Last 24 Hours (Table) 06/22/22 06/22/22 06/23/22 Range/Units 11:00 11:00 06:41 Creatinine 0.40 L (0.52-1.04) mg/dL Uric Acid 3.3 L (3.7-7.4) mg/dL Magnesium 5.5 H* (1.6-2.3) mg/dL AST 46 H (14-36) U/L Lactate Dehydrogenase 409 H (120-246) U/L Urine Protein Trace H (Negative) Urine Blood Moderate H (Negative) Urine RBC 8 H (0-5) /hpf Urine Mucus Occasional H (None) /hpf Assessment and Plan (1) Preeclampsia in period Current Visit: Yes Status: Acute Code(s): O14.95 - UNSPECIFIED PRE- ECLAMPSIA, COMPLICATING THE PUERPERIUM SNOMED Code(s): 005409848 (2) Status post repeat low transverse section Current Visit: No Status: Acute Code(s): Z98.891 - HISTORY OF UTERINE SCAR FROM PREVIOUS SURGERY SNOMED Code(s): 441562619 Plan: Patient is doing well this morning. We will discontinue magnesium infusion, labs addressed with patient normal station of liver function is noted. We'll advance diet to regular. Discontinue Jimenez catheter. We will hold morning labetalol dose given her blood pressures. We'll continue to monitor blood pres sures closely throughout the day and anticipate discharge home tomorrow.
[2022-06-23] MEDS ORDERED: LABETALOL 100 MG TAB PO ONE (16:44)
[2022-06-23] MEDS: MAGNESIUM SULFATE-WATER PMX 20 GM in WATER FOR INJECTION 1 500ML.BAG IV SCH (19:56)
[2022-06-24 08:04] VITALS: RESP 16; TEMP 98.2
[2022-06-24] MEDS: LABETALOL 200 MG TAB PO SCH ×2 (08:10→10:03)
--- NOTE | 2022-06-24 08:16 | P.PN ---
Subjective Progress Note Date: 06/24/22 Principal diagnosis: preeclampsia Patient did well overnight. She did receive 100 mg of labetalol for elevated blood pressure 140/90. Patient is without signs or symptoms of preeclampsia. Patient is dealing with some significant childcare stress at home. Blood pres sure this morning was elevated 160s over 90s. Patient denies headache right upper quadrant pain and states she is overall feeling well. Patient once again is requesting discharge with blood pressure management at home. She states she has a blood pressure cuff and is very comfortable taking her medication and blood pressure as needed. Objective - Vital Signs Vital signs: Vital Signs Temp 98.2 F 06/24/22 08:00 Pulse 66 06/24/22 08:00 Resp 16 06/24/22 08:00 BP 161/97 06/24/22 08:00 Pulse Ox 95 06/24/22 03:00 FiO2 Intake & Output 06/23/22 06/24/22 06/24/22 18:59 06:59 18:59 Intake Total 225 Output Total 1250 1600 Balance -1025 -1600 Intake: Intake, IV Titration 225 Amount Lactated Ringers 1,000 ml 75 @ 25 mls/hr IV .Q24H ALFONSO Rx#:[id number] Magnesium Sulfate-Water 150 Pmx 4 gm In Water For Injection 1 100ml.bag @ 300 mls/hr IVPB ONCE ONE Rx#:[id number] Output: Urine 1250 1600 Other: Voiding Method Toilet # Voids 1 2 - Constitutional General appearance: Present: average body habitus, cooperative, no acute distress - Respiratory Respiratory: bilateral: CTA - Cardiovascular Rhythm: regular - Gastrointestinal General gastrointestinal: Present: soft - Labs CBC & Chem 7: 06/23/22 06:41 06/23/22 06:41 Assessment and Plan (1) Preeclampsia in period Current Visit: Yes Status: Acute Code(s): O14.95 - UNSPECIFIED PRE- ECLAMPSIA, COMPLICATING THE PUERPERIUM SNOMED Code(s): 830390950 (2) Status post repeat low transverse section Current Visit: No Status: Acute Code(s): Z98.891 - HISTORY OF UTERINE SCAR FROM PREVIOUS SURGERY SNOMED Code(s): 119524552 Plan: Patient is doing well this morning. We will discontinue magnesium infusion, labs addressed with patient normal station of liver function is noted. We'll advance diet to regular. Discontinue Jimenez catheter. We will hold morning labetalol dose given her blood pressures. We'll continue to monitor blood pressures closely throughout the day and anticipate discharge home tomorrow. Patient is doing well overall. We will give 200 mg labetalol now given elevated blood pressure. Patient is currently asymptomatic. Will recheck blood pressure half an hour after medication is given. If patient is stable through the morning, will plan discharge. Discharge instructions are reviewed in detail. Patient is to have close follow-up Sunday and Sunday with myself in the office. She is happy with this given her current childcare situation
[2022-06-24 08:54] VITALS: PULSE 62
[2022-06-24 09:57] VITALS: BP 156/93
== END 2022-06-24 11:38 | disposition home or self-care (01) | DRG 776 ==
LOC: FBPOP 10:11 → 4FBP 11:47
PROVIDERS: ADMIT Obstetrics & Gynecology Obstetrics; ATTEND Obstetrics & Gynecology Obstetrics
DX: O14.95 Unspecified pre-eclampsia, complicating the puerperium (principal); F41.9 Anxiety disorder, unspecified; O34.211 Maternal care for low transverse scar from previous cesarean delivery; O99.344 Other mental disorders complicating childbirth; Z87.891 Personal history of nicotine dependence
CPT/HCPCS: 36415; 81001; 82565; 82570; 83615; 83735; 84156; 84450; 84460; 84520; 84550; 85025; 85384; 85610; 85730; 99215

== ENCOUNTER 2023-05-23 20:43 | Emergency (ER) | payer BC ==
[2023-05-23] MEDS: MORPHINE SULFATE 4 MG/ML SYRINGE IVP STA (21:56)
[2023-05-23] MEDS: SODIUM CHLORIDE 0.9% 1,000 ML IV STA (21:59)
[2023-05-23 22:10] LABS: Appearance,Urine Clear (Clear); Bilirubin,Urine Negative (Negative); Blood,Urine Negative (Negative); Color,Urine Colorless; Glucose,Urine (UA) Negative (Negative); Ketones,Urine Negative (Negative); Leukocyte Esterase,Urine Negative (Negative); Nitrite,Urine Negative (Negative); Protein,Urine Negative (Negative); Specific Gravity,Urine 1.003 (1.001-1.035); Urobilinogen,Urine <2.0 mg/dL (<2.0)
[2023-05-23 22:13] LABS: Basophils # (A) 0.1 k/uL (0-0.2); Basophils % (A) 1 %; Eosinophils # (A) 0.2 k/uL (0-0.7); Eosinophils % (A) 2 %; HCT 39.5 % (34.0-46.0); HGB 13.8 gm/dL (11.4-16.0); Lymphocytes % (A) 30 %; MCH 28.8 pg (25.0-35.0); MCHC 34.8 g/dL (31.0-37.0); MCV 82.7 fL (80.0-100.0); Mean Platelet Volume 7.3; Monocytes # (A) 0.3 k/uL (0-1.0); Monocytes % (A) 3 %; Neutrophils # (A) 6.4 k/uL (1.3-7.7); Neutrophils % (A) 63 %; Platelet Count 245 k/uL (150-450); Poikilocytosis Slight; RBC 4.78 m/uL (3.80-5.40); WBC 10.2 k/uL (3.8-10.6)
[2023-05-23 22:24] LABS: ALT 58 U/L (4-34); AST 51 U/L (14-36); African American GFR (CKD) >90 (>60 ml/min/1.73 sqM); Albumin 4.2 g/dL (3.5-5.0); Alkaline Phosphatase 87 U/L (38-126); Amylase 49 U/L (30-110); Anion Gap 7 mmol/L; Blood Urea Nitrogen 14 mg/dL (7-17); Carbon Dioxide 26 mmol/L (22-30); Chloride 104 mmol/L (98-107); Glucose 99 mg/dL (74-99); Lipase 186 U/L (23-300); Non-African American GFR(CKD) >90 (>60 ml/min/1.73 sqM); Potassium 3.9 mmol/L (3.5-5.1); Sodium 137 mmol/L (137-145); Total Bilirubin 0.4 mg/dL (0.2-1.3); Total Protein 7.1 g/dL (6.3-8.2)
--- NOTE | 2023-05-23 23:03 | CT ---
EXAM: CT Abdomen and Pelvis With Intravenous Contrast CLINICAL HISTORY: ITS.REASON CT Reason: RLQ abdominal pain TECHNIQUE: Axial computed tomography images of the abdomen and pelvis with intravenous contrast. CTDI is 31 mGy and DLP is 1570.6 mGy-cm. This CT exam was performed using one or more of the following dose reduction techniques: automated exposure control, adjustment of the mA and/or kV according to patient size, and/or use of iterative reconstruction technique. COMPARISON: CT abdomen pelvis 03/07/2019. FINDINGS: Lung bases: Mild progressive bilateral pleural effusions and infiltrates, nonspecific, concerning for pneumonia, slightly greater on the left. Small air-containing hiatal hernia. Mild cardiomegaly. Liver: Subtle hypodensity right lobe medially, along the capsule with punctate peripheral enhancement, probable 13 mm hemangioma, though not fully evaluated. Gallbladder and bile ducts: Gallbladder not visualized, may have been removed. No ductal dilation. Pancreas: No ductal dilation. Spleen: Unremarkable. Adrenals: Unremarkable. Kidneys and ureters: No pyelonephritis or hydronephrosis. Stomach and bowel: Mild fluid intermittently and small bowel, nonspecific, may be postprandial, cannot rule out mild gastroenteritis or ileus. No obstruction. Appendix: Normal. Intraperitoneal space: No free air or fluid. Bones/joints: No acute fracture. Soft tissues: Unremarkable. Vasculature: No aortic aneurysm. Lymph nodes: No enlarged lymph nodes. Bladder: No stones. Reproductive: 2.2 cm left ovarian cyst, similar to prior, likely physiologic, not well evaluated by CT. IMPRESSION: 1. Question mild gastroenteritis or ileus. 2. Normal appendix and kidneys. 3. Small hepatic lesion, probable hemangioma, not fully evaluated. 4. Mild progressive bilateral pleural effusions and infiltrates are nonspecific, concerning for pneumonia.
--- NOTE | 2023-05-23 23:56 | ED ---
Abdominal Pain HPI - General Chief Complaint: Abdominal Pain Stated Complaint: Abdominal Pain Time Seen by Provider: 05/23/23 21:14 Source: patient Mode of arrival: ambulatory Limitations: no limitations - History of Present Illness Initial Comments: 32-year-old female presenting with abdominal pain. Pain started today and is sharp in nature. Located in the right lower quadrant. She admits to nausea and diarrhea as well. Patient has had a cough for the last 2 days and states that the pain is made worse by coughing. History includes section and cholecystectomy. No chest pain or difficulty breathing. No abdominal emesis, hematochezia, melena. No fevers or chills. - Related Data Home Medications Medication Instructions Recorded Confirmed FLUoxetine HCL [PROzac] 40 mg PO HS 08/17/21 06/22/22 Levothyroxine Sodium 125 mcg PO QAM 09/08/21 06/22/22 Vit No.179/Iron/Folic 1 tab PO DAILY 05/15/22 06/22/22 [ Tablet] Omeprazole 20 mg PO DAILY 06/13/22 06/22/22 Enoxaparin [Lovenox] 30 mg SQ DAILY 06/22/22 06/22/22 Previous Rx's Medication Instructions Recorded Azithromycin [Zithromax Z Pack] 1 tab PO DIRECTED #6 tab 05/23/23 Dicyclomine [Bentyl] 20 mg PO QID PRN #20 tablet 05/23/23 Allergies Allergy/AdvReac Type Severity Reaction Status Date / Time amoxicillin Allergy Rash/Hives Verified 05/23/23 21:01 Penicillins Allergy Unknown Verified 05/23/23 21:01 Childhood Review of Systems ROS Statement: Those systems with pertinent positive or pertinent negative responses have been documented in the HPI. ROS Other: All systems not noted in ROS Statement are negative. Past Medical History Past Medical History: Blood Disorder, GERD/Reflux, Thyroid Disorder Additional Past Medical History / Comment(s): Factor V. gallbladder disorder History of Any Multi-Drug Resistant Organisms: None Reported Past Surgical History: Section, Cholecystectomy Additional Past Surgical History / Comment(s): C-SEC X 3. egd Past Anesthesia/Blood Transfusion Reactions: No Reported Reaction Past Psychological History: Anxiety Smoking Status: Former smoker Past Alcohol Use History: None Reported Past Drug Use History: None Reported - Past Family History Father Family Medical History: Cancer Additional Family Medical History / Comment(s): Prostate cancer. Mother Family Medical History: Cancer Additional Family Medical History / Comment(s): Cervical cancer. General Exam Limitations: no limitations General appearance: alert, in no apparent distress Head exam: Present: atraumatic, normocephalic Eye exam: Present: normal appearance, EOMI Neck exam: Present: normal inspection. Absent: meningismus Respiratory exam: Present: normal lung sounds bilaterally. Absent: respiratory distress, wheezes, rales, rhonchi, stridor Cardiovascular Exam: Present: regular rate, normal rhythm, normal heart sounds. Absent: systolic murmur, diastolic murmur, rubs, gallop, clicks GI/Abdominal exam: Present: soft, tenderness (Right lower quadrant). Absent: distended, guarding, rebound, rigid Neurological exam: Present: alert, oriented X3 Psychiatric exam: Present: normal affect, normal mood Skin exam: Present: warm, dry Course Vital Signs 05/23/23 05/24/23 20:59 00:05 Temperature 97.9 F 98 F Pulse Rate 91 88 Respiratory 18 20 Rate Blood Pressure 117/77 107/22 O2 Sat by Pulse 96 97 Oximetry Medical Decision Making - Medical Decision Making Was pt. sent in by a medical professional or institution (, PA, FISHING LINE WINDING MACHINE OPERATOR, urgent care, hospital, or usp...) When possible be specific @ -No Did you speak to anyone other than the patient for history (EMS, parent, family, police, friend...)? What history was obtained from this source @ -No Did you review nursing and triage notes (agree or disagree)? Why? @ -I reviewed and agree with nursing and triage notes Were old charts reviewed (outside hosp., previous admission, EMS record, old EKG, old radiological studies, urgent care reports/EKG's, usp records)? Report findings @ -No old charts were reviewed Differential Diagnosis (chest pain, altered mental status, abdominal pain women, abdominal pain men, vaginal bleeding, weakness, fever, dyspnea, syncope, headache, dizziness, GI bleed, back pain, seizure, CVA, palpatations, mental h ealth, musculoskeletal)? @ -MDM Differential Abdominal Pain Women: Appendicitis, Cholecystitis, diverticulosis, ischemic bowel, pancreatitis, hepatitis, UTI, gastroenteritis, AAA, incarcerated hernia, bowel obstruction, constipation, inflammatory bowel, hepatitis, peptic ulcer disease, splenic inf arction, perforated viscus, vulvitis, ovarian torsion, PID, kidney stone, placenta abruption... This is not meant to be an all-inclusive list EKG interpreted by me (3pts min.). @ -As above X-rays interpreted by me (1pt min.). @ -None done CT interpreted by me (1pt min.). @ -CT shows gastroenteritis versus ileus. Normal appendix and kidneys. Small hepatic lesion, probable hemangioma, not fully evaluated. Mild progressive bilateral pleural effusions and infiltrates are nonspecific, concerning for pneumonia. U/S interpreted by me (1pt. min.). @ -None done What testing was considered but not performed or refused? (CT, X-rays, U/S, labs)? Why? @ -None What meds were considered but not given or refused? Why? @ -None Did you discuss the management of the patient with other professionals (professionals i.e. , PA, [employer] WINDING MACHINE OPERATOR, lab, RT, psych nurse, bilingual social worker, beer runner, teacher, [employer]ad[employer] plans staff officer, correctional casework specialist)? Give summary @ -No Was smoking cessation discussed for >3mins.? @ -No Was critical care preformed (if so, how long)? @ -No Were there social determinants of health that impacted care today? How? (Homelessness, low income, unemployed, alcoholism, drug addiction, transportation, low edu. Level, literacy, decrease access to med. care, senior living, rehab)? @ -No Was there de-escalation of care discussed even if they declined (Discuss DNR or withdrawal of care, Hospice)? DNR status @ -No What co-morbidities impacted this encounter? (DM, HTN, Smoking, COPD, CAD, Cancer, CVA, ARF, Chemo, Hep., AIDS, mental health diagnosis, sleep apnea, morbid obesity)? @ -None Was patient admitted / discharged? Hospital course, mention meds given and route, prescriptions, significant lab abnormalities, going to OR and other pertinent info. @ -32-year-old female presenting with chief complaint of right lower quadrant pain. Admits to nausea and diarrhea. History and physical exam are conducted. Lab work shows no leukocytosis or anemia. Mild transaminitis is. Urine shows no infectious process and negative hCG. CT shows gastroenteritis versus ileus. Given her diarrhea and lack of vomiting but admitting to nausea I feel this more closely represents gastroenteritis. CT also shows liver lesion that was a probable hemangioma but was unable to be fully evaluated, and infiltrates conc erning for pneumonia. Patient is educated on today's findings. She is started on azithromycin and provided with Bentyl. She is requesting discharge home. Discharge. Follow-up with PCP. Report back to ER with any new or worsening symptoms. Discussed return parameters and answered all questions. Patient conveyed verbal understanding and agreed to the plan. I discussed this case in detail with my attending Dr. Rodrigues Undiagnosed new problem with uncertain prognosis? @ -No Drug Therapy requiring intensive monitoring for toxicity (Heparin, Nitro, Insulin, Cardizem)? @ -No Were any procedures done? @ -No Diagnosis/symptom? @ -Gastroenteritis versus ileus, pneumonia Acute, or Chronic, or Acute on Chronic? @ -Acute Uncomplicated (without systemic symptoms) or Complicated (systemic symptoms)? @ -Uncomplicated Side effects of treatment? @ -No Exacerbation, Progression, or Severe Exacerbation? @ -No Poses a threat to life or bodily function? How? (Chest pain, USA, MD, pneumonia, PE, COPD, DKA, ARF, appy, cholecystitis, CVA, Diverticulitis, Homicidal, Suicidal, threat to staff... and all critical care pts) @ -Low likelihood at this time - Lab Data Result diagrams: 05/23/23 21:55 05/23/23 21:55 Lab Results 05/23/23 05/23/23 05/23/23 Range/Units 21:55 21:55 21:55 WBC 10.2 (3.8-10.6) k/uL RBC 4.78 (3.80-5.40) m/uL Hgb 13.8 (11.4-16.0) gm/dL Hct 39.5 (34.0-46.0) % MCV 82.7 (80.0-100.0) fL MCH 28.8 (25.0-35.0) pg MCHC 34.8 (31.0-37.0) g/dL RDW 14.0 (11.5-15.5) % Plt Count 245 (150-450) k/uL MPV 7.3 Neutrophils % 63 % Lymphocytes % 30 % Monocytes % 3 % Eosinophils % 2 % Basophils % 1 % Neutrophils # 6.4 (1.3-7.7) k/uL Lymphocytes # 3.0 (1.0-4.8) k/uL Monocytes # 0.3 (0-1.0) k/uL Eosinophils # 0.2 (0-0.7) k/uL Basophils # 0.1 (0-0.2) k/uL Poikilocytosis Slight Sodium (137-145) mmol/L Potassium (3.5-5.1) mmol/L Chloride (98-107) mmol/L Carbon Dioxide (22-30) mmol/L Anion Gap mmol/L BUN (7-17) mg/dL Creatinine (0.52-1.04) mg/dL Est GFR (CKD-EPI)AfAm (>60 ml/min/1.73 sqM) Est GFR (CKD-EPI)NonAf (>60 ml/min/1.73 sqM) Glucose (74-99) mg/dL Plasma Lactic Acid Donald (0.7-2.0) mmol/L Calcium (8.4-10.2) mg/dL Total Bilirubin (0.2-1.3) mg/dL AST (14-36) U/L ALT (4-34) U/L Alkaline Phosphatase (38-126) U/L Total Protein (6.3-8.2) g/dL Albumin (3.5-5.0) g/dL Amylase (30-110) U/L Lipase (23-300) U/L Urine Color Colorless Urine Appearance Clear (Clear) Urine pH 6.0 (5.0-8.0) Ur Specific [place] 1.003 (1.001-1.035) Urine Protein Negative (Negative) Urine Glucose (UA) Negative (Negative) Urine Ketones Negative (Negative) Urine Blood Negative (Negative) Urine Nitrite Negative (Negative) Urine Bilirubin Negative (Negative) Urine Urobilinogen <2.0 (<2.0) mg/dL Ur Leukocyte Esterase Negative (Negative) Urine HCG, Qual Not Detected (Not Detectd) 05/23/23 05/23/23 Range/Units 21:55 21:55 WBC (3.8-10.6) k/uL RBC (3.80-5.40) m/uL Hgb (11.4-16.0) gm/dL Hct (34.0-46.0) % MCV (80.0-100.0) fL MCH (25.0-35.0) pg MCHC (31.0-37.0) g/dL RDW (11.5-15.5) % Plt Count (150-450) k/uL MPV Neutrophils % % Lymphocytes % % Monocytes % % Eosinophils % % Basophils % % Neutrophils # (1.3-7.7) k/uL Lymphocytes # (1.0-4.8) k/uL Monocytes # (0-1.0) k/uL Eosinophils # (0-0.7) k/uL Basophils # (0-0.2) k/uL Poikilocytosis Sodium 137 (137-145) mmol/L Potassium 3.9 (3.5-5.1) mmol/L Chloride 104 (98-107) mmol/L Carbon Dioxide 26 (22-30) mmol/L Anion Gap 7 mmol/L BUN 14 (7-17) mg/dL Creatinine 0.60 (0.52-1.04) mg/dL Est GFR (CKD-EPI)AfAm >90 (>60 ml/min/1.73 sqM) Est GFR (CKD-EPI)NonAf >90 (>60 ml/min/1.73 sqM) Glucose 99 (74-99) mg/dL Plasma Lactic Acid Donald 1.1 (0.7-2.0) mmol/L Calcium 9.0 (8.4-10.2) mg/dL Total Bilirubin 0.4 (0.2-1.3) mg/dL AST 51 H (14-36) U/L ALT 58 H (4-34) U/L Alkaline Phosphatase 87 (38-126) U/L Total Protein 7.1 (6.3-8.2) g/dL Albumin 4.2 (3.5-5.0) g/dL Amylase 49 (30-110) U/L Lipase 186 (23-300) U/L Urine Color Urine Appearance (Clear) Urine pH (5.0-8.0) Ur Specific [place] (1.001-1.035) Urine Protein (Negative) Urine Glucose (UA) (Negative) Urine Ketones (Negative) Urine Blood (Negative) Urine Nitrite (Negative) Urine Bilirubin (Negative) Urine Urobilinogen (<2.0) mg/dL Ur Leukocyte Esterase (Negative) Urine HCG, Qual (Not Detectd) Disposition Clinical Impression: Gastroenteritis, Pneumonia Disposition: HOME SELF-CARE Condition: Good Instructions (If sedation given, give patient instructions): Gastroenteritis (ED), Community Acquired Pneumonia (ED), Ileus (ED) Additional Instructions: Follow-up with your PCP. Report back to ER with any new or worsening symptoms. Prescriptions: Dicyclomine [Bentyl] 20 mg PO QID PRN #20 tablet PRN Reason: Dyspepsia Azithromycin [Zithromax Z Pack] 1 tab PO DIRECTED #6 tab Is patient prescribed a controlled substance at d/c from ED?: No Referrals: Nahum Cast DO [Primary Care Provider] - 1-2 days Time of Disposition: 23:56
[2023-05-24 00:45] VITALS: BP 107/22; PULSE 88; RESP 20; TEMP 98
== END 2023-05-24 00:06 | disposition home or self-care (01) ==
LOC: EC 20:43
DX: K52.9 Noninfective gastroenteritis and colitis, unspecified (principal); J18.9 Pneumonia, unspecified organism; Z88.0 Allergy status to penicillin; Z87.891 Personal history of nicotine dependence
CPT/HCPCS: 36415; 80053; 82150; 83605; 83690; 85025; 81003; 81025; 74177; 99284; 96374; 96361 ×2; J2270; Q9967